=== PATIENT | female | born 1975 | race Caucasian/White ===

== ENCOUNTER 2023-10-26 03:41 | Inpatient (IN) | payer OTHER, SELFPAY ==
[2023-10-25 21:15] VITALS: BP 172/106
--- NOTE | 2023-10-25 23:47 | ED.GENMED ---
History of Present Illness
<Dorita Cheek MD, Resident - Last Filed: 10/26/23 00:21>
General
Chief Complaint: Abdominal Pain
Source: patient and family
Time Seen by Provider: 10/25/23 22:51
History of Present Illness
History of Present Illness:
47-year-old female, Ms. Alyssa Zuniga presented to the ER with abdominal pain, distended abdomen and bloating. Patient reports that she has been having the symptoms from the past 3 weeks and have worsened during the last week. Patient was seen at
[facility] 3 days ago, diagnosed with acute diverticulitis, CT evidence of abscesses, acute diverticulitis, colovesical fistula. Patient was told that she may need to be operated, but she declined. She consulted her colorectal surgeon,
Dr. Stephens who advised her to be seen at the [place] ER and get admitted for further management. Patient reports her abdominal pain at 9/10, diffuse all over the abdomen, nonradiating. Patient has a history of constipation, her last bowel
movement was yesterday, she is able to pass flatus. Patient is on Augmentin. No history of fever/chills, nausea/vomiting, no history of feculent/foul-smelling urine.
Past History
<Dorita Cheek MD, Resident - Last Filed: 10/26/23 00:21>
Past History
ED Past Medical History: HTN, Hypothyroidism, Psychiatric (Alcohol abuse, anxiety, depression) and Other (Bronchitis)
ED Past Surgical History:
Social History
Tobacco: Smoker
Alcohol: Former
Drug: None
Personal: Single
Living: with family
Employment: Employed
Family History
Family History: Other
Phy Exam
<Dorita Cheek MD, Resident - Last Filed: 10/26/23 00:21>
Physical Exam
Physical Exam:
GEN: In acute distress due to pain
Eyes: PERRLA, EOMs intact, no scleral icterus
HENT: NCAT, oral mucosa moist, no JVD, no cervical adenopathy.
Lungs: CTAB, no wheezes, rales, rhonchi, normal chest wall excursion
Cardiac: RRR, no M/R/G, no peripheral edema. Radial pulses 2+ bilat
Abdomen: Distended, diffuse tenderness to palpation, bowel sounds+
Neuro: AO x 3, no focal deficits to BUE/BLE, normal sensation throughout
Skin: No rashes, petechiae. Normal color, no pallor or jaundice.
Psych: Calm, cooperative, proper hygiene
Course
<Veneela Enrique Cheek MD, Resident - Last Filed: 10/26/23 00:21>
Orders/Labs/Results
Orders:
Orders
10/25/23 23:47
0.9% Sodium Chloride 500 ml [Nss] 500 ml IV BOLUS
HYDROmorphone [Dilaudid] 1 mg IV NOW STA
Ondansetron Injectable [Zofran] 4 mg IV NOW STA
Piperacillin/Tazo 3.375 Gram [Zosyn] 3.375 gram in 50 ml IV NOW
10/25/23 23:52
Complete Blood Count/With Diff Urgent
Comprehensive Metabolic Panel Urgent
10/26/23 00:14
CT Abd/pel W Iv And Oral Contr Urgent
Comment:
Reason For Exam: abdominal pain
Iohexol [Omnipaque] See Protocol PO NOW STA
10/26/23 00:27
HCG, Urine Qualitative Screen Urgent
Date Specimen was Collected: 10/26/23
Time Specimen was Collected: 00:25
Comment: ADD ON
Urinalysis Reflex To Culture Urgent
Date Specimen was Collected: 10/26/23
Time Specimen was Collected: 00:25
10/26/23 01:39
Add On- LAB Urgent
Tests Added?: urine hcg
10/26/23 02:22
Admit/Transfer Patient As Directed
Co-Sign Provider:
Level of Care: Inpatient admission
Assign to:: Telemetry
Physician / Group: Ed
Diagnosis: Diverticulitis
Reason for Telemetry: Arrhythmia
Date to Stop Telemetry: 10/29/23
Time to Stop Telemetry: 11:00
Reason for Hospitalization: Diverticulitis
Expected length of stay greater than two midnights?: Yes
ELOS- Estimated Length of Stay in days: 4
I certify the patient meets the requirements for IP care: Yes
PRN Pain Medication Management As Directed
May give lesser potent ordered pain med per pt: Yes
preference::
Protocol:: Medication orders for pain may be administered in a
manner that supports deferring to patient preference
when the pt is:
- Requesting an ordered lesser potent pain medication.
Least to most potent pain medications are defined
as: acetaminophen < NSAID < tramadol < opioids
(morphine, oxycodone, hydromorphone).
- Requesting a lesser dose of the same medication IF
ORDERED.
- Requesting a less intrusive route of administration
if both routes are prescribed by the provider (PO <
IV).
10/26/23 02:23
Code Status As Directed
Resuscitation Status: Full Code
10/26/23 02:26
Ipratropium/Albuterol Sulfate [Duoneb] 3 ml INH R NOW ONE
10/26/23 03:50
Acetaminophen [Tylenol] 650 mg PO Q4HPRN PRN
Alprazolam [Xanax] 0.5 mg PO TID PRN
HYDROmorphone [Dilaudid] 0.5 mg IV Q4HPRN PRN
Ipratropium/Albuterol Sulfate [Duoneb] 3 ml INH R Q4HPRN PRN
Ketorolac [Toradol] 10 mg IV Q6HPRN PRN
Ondansetron Injectable [Zofran] 4 mg IV Q6HPRN PRN
10/26/23 03:50
ColoRectal Surgery Consult Routine
Consulting Provider: Jayro Stephens
Was physician already notified: Yes
Reason for consult: Diverticulitis
TSH Reflex To Free T4 Routine
Activity As Directed
Activity Level: Ambulate
With Assistance
Bladder Scan As Directed
Follow Bladder Retention/Intermittent Cath Algorithm?: Yes
PRN if no void in __ hours: 6
Frequency: Per Retention Algorithm
If Bladder Scan Result >: 400
then:: Straight cath
EKG with chest pain [ECG as needed] As Directed
ECG as needed for:: Chest Pain
I/O [Intake/ Output] As Directed
Frequency: Per unit guidelines
Pneumatic Compression Sleeves As Directed
Type: Knee high
Straight Cath As Directed
Frequency: Per Retention Algorithm
Additional Instructions: straight cath as needed per acute urinary retention algorithm for 24 hrs
Additional Instructions: for bladder scan greater than 400 mL
Vital Signs As Directed
Frequency: Per unit guidelines
Oxygen Therapy [O2 Therapy] [RESP] Routine
Titrate/Wean O2 to maintain O2 sat greater than (%): 94
DX Deep Vein Thrombosis Video Routine
10/26/23 03:52
DC Protocol for Telemetry ONCE
10/26/23 04:00
Piperacillin/Tazo 3.375 Gram [Zosyn] 3.375 gram in 50 ml IV Q6H
10/26/23 Breakfast
NPO
Allow oral meds: Yes
Allow clear liquids: Sips of Clears
Basic Metabolic Panel IN AM
Complete Blood Count/No Diff IN AM
10/26/23 08:00
Levothyroxine [Synthroid] 175 mcg PO DAILY
Abnormal Lab Results
10/26/23 10/26/23
00:17 00:27
WBC 14.2 H 10^3/uL
(4.8-10.8)
RBC 3.72 L 10^6/uL
(4.20-5.40)
Hgb 11.2 L g/dL
(12.0-16.0)
Hct 33.3 L %
(37.0-47.0)
RDW 16.1 H %
(11.5-14.5)
Plt Count 474 H 10^3/uL
(130-400)
Abs Immat Gran (auto) 0.1 H 10^3/uL
(0-0.05)
Absolute Neuts (auto) 10.4 H 10^3/uL
(1.4-6.5)
Absolute Monos (auto) 0.8 H 10^3/uL
(0.1-0.6)
Immature Gran % 0.9 H %
(0-0.5)
Lymphocytes % 18.1 L %
(20.5-51.1)
Glucose 114 H mg/dl
(70-99)
AST 55 H U/L
(14-36)
ALT 67 H U/L
(0-35)
Alkaline Phosphatase 133 H U/L
(38-126)
Urine Bilirubin 1+ A
(Negative)
Urine Urobilinogen 2+ A
(Neg - 1+)
10/26/23 00:17
10/26/23 00:17
Vital Signs
Initial and Last Documented VS:
Initial Vital Signs
Temp Pulse Resp BP Pulse Ox
99.2 F 102 26 172/106 96
10/25/23 21:15 10/25/23 21:15 10/25/23 21:15 10/25/23 21:15 10/25/23 21:15
Last Documented Vital Signs
Temp Pulse Resp BP Pulse Ox
97.8 F 86 18 124/88 93
10/26/23 03:40 10/26/23 03:40 10/26/23 03:40 10/26/23 03:40 10/26/23 03:40
<Fawad Hoyt, DO - Last Filed: 10/26/23 00:17>
Orders/Labs/Results
Orders:
Orders
10/25/23 23:47
0.9% Sodium Chloride 500 ml [Nss] 500 ml IV BOLUS
HYDROmorphone [Dilaudid] 1 mg IV NOW STA
Ondansetron Injectable [Zofran] 4 mg IV NOW STA
Piperacillin/Tazo 3.375 Gram [Zosyn] 3.375 gram in 50 ml IV NOW
10/25/23 23:52
Complete Blood Count/With Diff Urgent
Comprehensive Metabolic Panel Urgent
10/26/23 00:14
CT Abd/pel W Iv And Oral Contr Urgent
Comment:
Reason For Exam: abdominal pain
Iohexol [Omnipaque] See Protocol PO NOW STA
10/26/23 00:27
HCG, Urine Qualitative Screen Urgent
Date Specimen was Collected: 10/26/23
Time Specimen was Collected: 00:25
Comment: ADD ON
Urinalysis Reflex To Culture Urgent
Date Specimen was Collected: 10/26/23
Time Specimen was Collected: 00:25
10/26/23 01:39
Add On- LAB Urgent
Tests Added?: urine hcg
10/26/23 02:22
Admit/Transfer Patient As Directed
Co-Sign Provider:
Level of Care: Inpatient admission
Assign to:: Telemetry
Physician / Group: Ed
Diagnosis: Diverticulitis
Reason for Telemetry: Arrhythmia
Date to Stop Telemetry: 10/29/23
Time to Stop Telemetry: 11:00
Reason for Hospitalization: Diverticulitis
Expected length of stay greater than two midnights?: Yes
ELOS- Estimated Length of Stay in days: 4
I certify the patient meets the requirements for IP care: Yes
PRN Pain Medication Management As Directed
May give lesser potent ordered pain med per pt: Yes
preference::
Protocol:: Medication orders for pain may be administered in a
manner that supports deferring to patient preference
when the pt is:
- Requesting an ordered lesser potent pain medication.
Least to most potent pain medications are defined
as: acetaminophen < NSAID < tramadol < opioids
(morphine, oxycodone, hydromorphone).
- Requesting a lesser dose of the same medication IF
ORDERED.
- Requesting a less intrusive route of administration
if both routes are prescribed by the provider (PO <
IV).
10/26/23 02:23
Code Status As Directed
Resuscitation Status: Full Code
10/26/23 02:26
Ipratropium/Albuterol Sulfate [Duoneb] 3 ml INH R NOW ONE
10/26/23 03:50
Acetaminophen [Tylenol] 650 mg PO Q4HPRN PRN
Alprazolam [Xanax] 0.5 mg PO TID PRN
HYDROmorphone [Dilaudid] 0.5 mg IV Q4HPRN PRN
Ipratropium/Albuterol Sulfate [Duoneb] 3 ml INH R Q4HPRN PRN
Ketorolac [Toradol] 10 mg IV Q6HPRN PRN
Ondansetron Injectable [Zofran] 4 mg IV Q6HPRN PRN
10/26/23 03:50
ColoRectal Surgery Consult Routine
Consulting Provider: Jayro Stephens
Was physician already notified: Yes
Reason for consult: Diverticulitis
TSH Reflex To Free T4 Routine
Activity As Directed
Activity Level: Ambulate
With Assistance
Bladder Scan As Directed
Follow Bladder Retention/Intermittent Cath Algorithm?: Yes
PRN if no void in __ hours: 6
Frequency: Per Retention Algorithm
If Bladder Scan Result >: 400
then:: Straight cath
EKG with chest pain [ECG as needed] As Directed
ECG as needed for:: Chest Pain
I/O [Intake/ Output] As Directed
Frequency: Per unit guidelines
Pneumatic Compression Sleeves As Directed
Type: Knee high
Straight Cath As Directed
Frequency: Per Retention Algorithm
Additional Instructions: straight cath as needed per acute urinary retention algorithm for 24 hrs
Additional Instructions: for bladder scan greater than 400 mL
Vital Signs As Directed
Frequency: Per unit guidelines
Oxygen Therapy [O2 Therapy] [RESP] Routine
Titrate/Wean O2 to maintain O2 sat greater than (%): 94
DX Deep Vein Thrombosis Video Routine
10/26/23 03:52
DC Protocol for Telemetry ONCE
10/26/23 04:00
Piperacillin/Tazo 3.375 Gram [Zosyn] 3.375 gram in 50 ml IV Q6H
10/26/23 Breakfast
NPO
Allow oral meds: Yes
Allow clear liquids: Sips of Clears
Basic Metabolic Panel IN AM
Complete Blood Count/No Diff IN AM
10/26/23 08:00
Levothyroxine [Synthroid] 175 mcg PO DAILY
Abnormal Lab Results
10/26/23 10/26/23
00:17 00:27
WBC 14.2 H 10^3/uL
(4.8-10.8)
RBC 3.72 L 10^6/uL
(4.20-5.40)
Hgb 11.2 L g/dL
(12.0-16.0)
Hct 33.3 L %
(37.0-47.0)
RDW 16.1 H %
(11.5-14.5)
Plt Count 474 H 10^3/uL
(130-400)
Abs Immat Gran (auto) 0.1 H 10^3/uL
(0-0.05)
Absolute Neuts (auto) 10.4 H 10^3/uL
(1.4-6.5)
Absolute Monos (auto) 0.8 H 10^3/uL
(0.1-0.6)
Immature Gran % 0.9 H %
(0-0.5)
Lymphocytes % 18.1 L %
(20.5-51.1)
Glucose 114 H mg/dl
(70-99)
AST 55 H U/L
(14-36)
ALT 67 H U/L
(0-35)
Alkaline Phosphatase 133 H U/L
(38-126)
Urine Bilirubin 1+ A
(Negative)
Urine Urobilinogen 2+ A
(Neg - 1+)
10/26/23 00:17
10/26/23 00:17
Vital Signs
Initial and Last Documented VS:
Initial Vital Signs
Temp Pulse Resp BP Pulse Ox
99.2 F 102 26 172/106 96
10/25/23 21:15 10/25/23 21:15 10/25/23 21:15 10/25/23 21:15 10/25/23 21:15
Last Documented Vital Signs
Temp Pulse Resp BP Pulse Ox
97.8 F 86 18 124/88 93
10/26/23 03:40 10/26/23 03:40 10/26/23 03:40 10/26/23 03:40 10/26/23 03:40
North[place];Remington Kim, DO - Last Filed: 10/26/23 04:02>
Orders/Labs/Results
Orders:
Orders
10/25/23 23:47
0.9% Sodium Chloride 500 ml [Nss] 500 ml IV BOLUS
HYDROmorphone [Dilaudid] 1 mg IV NOW STA
Ondansetron Injectable [Zofran] 4 mg IV NOW STA
Piperacillin/Tazo 3.375 Gram [Zosyn] 3.375 gram in 50 ml IV NOW
10/25/23 23:52
Complete Blood Count/With Diff Urgent
Comprehensive Metabolic Panel Urgent
10/26/23 00:14
CT Abd/pel W Iv And Oral Contr Urgent
Comment:
Reason For Exam: abdominal pain
Iohexol [Omnipaque] See Protocol PO NOW STA
10/26/23 00:27
HCG, Urine Qualitative Screen Urgent
Date Specimen was Collected: 10/26/23
Time Specimen was Collected: 00:25
Comment: ADD ON
Urinalysis Reflex To Culture Urgent
Date Specimen was Collected: 10/26/23
Time Specimen was Collected: 00:25
10/26/23 01:39
Add On- LAB Urgent
Tests Added?: urine hcg
10/26/23 02:22
Admit/Transfer Patient As Directed
Co-Sign Provider:
Level of Care: Inpatient admission
Assign to:: Telemetry
Physician / Group: Ed
Diagnosis: Diverticulitis
Reason for Telemetry: Arrhythmia
Date to Stop Telemetry: 10/29/23
Time to Stop Telemetry: 11:00
Reason for Hospitalization: Diverticulitis
Expected length of stay greater than two midnights?: Yes
ELOS- Estimated Length of Stay in days: 4
I certify the patient meets the requirements for IP care: Yes
PRN Pain Medication Management As Directed
May give lesser potent ordered pain med per pt: Yes
preference::
Protocol:: Medication orders for pain may be administered in a
manner that supports deferring to patient preference
when the pt is:
- Requesting an ordered lesser potent pain medication.
Least to most potent pain medications are defined
as: acetaminophen < NSAID < tramadol < opioids
(morphine, oxycodone, hydromorphone).
- Requesting a lesser dose of the same medication IF
ORDERED.
- Requesting a less intrusive route of administration
if both routes are prescribed by the provider (PO <
IV).
10/26/23 02:23
Code Status As Directed
Resuscitation Status: Full Code
10/26/23 02:26
Ipratropium/Albuterol Sulfate [Duoneb] 3 ml INH R NOW ONE
10/26/23 03:50
Acetaminophen [Tylenol] 650 mg PO Q4HPRN PRN
Alprazolam [Xanax] 0.5 mg PO TID PRN
HYDROmorphone [Dilaudid] 0.5 mg IV Q4HPRN PRN
Ipratropium/Albuterol Sulfate [Duoneb] 3 ml INH R Q4HPRN PRN
Ketorolac [Toradol] 10 mg IV Q6HPRN PRN
Ondansetron Injectable [Zofran] 4 mg IV Q6HPRN PRN
10/26/23 03:50
ColoRectal Surgery Consult Routine
Consulting Provider: Jayro Stephens
Was physician already notified: Yes
Reason for consult: Diverticulitis
TSH Reflex To Free T4 Routine
Activity As Directed
Activity Level: Ambulate
With Assistance
Bladder Scan As Directed
Follow Bladder Retention/Intermittent Cath Algorithm?: Yes
PRN if no void in __ hours: 6
Frequency: Per Retention Algorithm
If Bladder Scan Result >: 400
then:: Straight cath
EKG with chest pain [ECG as needed] As Directed
ECG as needed for:: Chest Pain
I/O [Intake/ Output] As Directed
Frequency: Per unit guidelines
Pneumatic Compression Sleeves As Directed
Type: Knee high
Straight Cath As Directed
Frequency: Per Retention Algorithm
Additional Instructions: straight cath as needed per acute urinary retention algorithm for 24 hrs
Additional Instructions: for bladder scan greater than 400 mL
Vital Signs As Directed
Frequency: Per unit guidelines
Oxygen Therapy [O2 Therapy] [RESP] Routine
Titrate/Wean O2 to maintain O2 sat greater than (%): 94
DX Deep Vein Thrombosis Video Routine
10/26/23 03:52
DC Protocol for Telemetry ONCE
10/26/23 04:00
Piperacillin/Tazo 3.375 Gram [Zosyn] 3.375 gram in 50 ml IV Q6H
10/26/23 Breakfast
NPO
Allow oral meds: Yes
Allow clear liquids: Sips of Clears
Basic Metabolic Panel IN AM
Complete Blood Count/No Diff IN AM
10/26/23 08:00
Levothyroxine [Synthroid] 175 mcg PO DAILY
Abnormal Lab Results
10/26/23 10/26/23
00:17 00:27
WBC 14.2 H 10^3/uL
(4.8-10.8)
RBC 3.72 L 10^6/uL
(4.20-5.40)
Hgb 11.2 L g/dL
(12.0-16.0)
Hct 33.3 L %
(37.0-47.0)
RDW 16.1 H %
(11.5-14.5)
Plt Count 474 H 10^3/uL
(130-400)
Abs Immat Gran (auto) 0.1 H 10^3/uL
(0-0.05)
Absolute Neuts (auto) 10.4 H 10^3/uL
(1.4-6.5)
Absolute Monos (auto) 0.8 H 10^3/uL
(0.1-0.6)
Immature Gran % 0.9 H %
(0-0.5)
Lymphocytes % 18.1 L %
(20.5-51.1)
Glucose 114 H mg/dl
(70-99)
AST 55 H U/L
(14-36)
ALT 67 H U/L
(0-35)
Alkaline Phosphatase 133 H U/L
(38-126)
Urine Bilirubin 1+ A
(Negative)
Urine Urobilinogen 2+ A
(Neg - 1+)
10/26/23 00:17
10/26/23 00:17
Vital Signs
Initial and Last Documented VS:
Initial Vital Signs
Temp Pulse Resp BP Pulse Ox
99.2 F 102 26 172/106 96
10/25/23 21:15 10/25/23 21:15 10/25/23 21:15 10/25/23 21:15 10/25/23 21:15
Last Documented Vital Signs
Temp Pulse Resp BP Pulse Ox
97.8 F 86 18 124/88 93
10/26/23 03:40 10/26/23 03:40 10/26/23 03:40 10/26/23 03:40 10/26/23 03:40
<Dorita Cheek MD, Resident - Last Filed: 10/26/23 00:21>
MDM/Problems Addressed
Differential Diagnosis Includes:
Acute diverticulitis versus colitis versus SBO versus gastroenteritis versus Crohn's/ulcerative colitis.
MDM/Problems Addressed:
Patient is hypertensive and tachycardic at presentation 172/106.
Patient is afebrile
N.p.o.
Started on IV fluids
CBC, CMP
Zosyn start
Pain control with Dilaudid.
Reached out to Dr. Stephens, he wants her to be admitted for further management.
<Dorita Cheek MD, Resident - Last Filed: 10/26/23 00:21>
*Critical Care Note
Total Time (30-74mins, 75-104mins- exclusive of procedures): Not Applicable
<Remington Kim DO - Last Filed: 10/26/23 04:02>
Update Note
Update Note:
10/26/2023 0356 AM: Preliminary Radiology Report
[facility], [facility] - Phone
[facility]
NAME: ALYSSA ZUNIGA
DATE OF EXAM: 10/26/2023
Patient No: [id number]
Physician: SUSANNE CHEEK^DORITA^ENRIQUE
Date of : 1975
Past Medical History (entered by Technologist):
Reason For Exam (entered by Technologist):
Other Notes (entered by Technologist): PT STATES SHE HAD BEEN DIAGNOSED WITH DIVERTICULITIS
Prior sent
Additional Information (per [facility]):
Comparison March 28, 2022
CT abdomen and pelvis with IV contrast
IMPRESSION:
Acute complicated diverticulitis with 2 adjacent peripherally enhancing abscesses, which abut the left adnexa, measuring 2.9 cm in the anterior mesentery and 3 cm along the oblique muscles and anterior mesentery. In addition, there is moderate wall
thickening of the bladder underneath the left adnexa with a 3 cm peripherally enhancing abscess along the superior surface. Cannot exclude a fistula between the sigmoid and left adnexa as well as between the left adnexa and bladder.
No free air. Trace free fluid. Moderate hepatic steatosis.
Moderate pericardial effusion, measuring up to 1.1 cm in thickness.
Case discussed with Dr. Kim at 0344
Dr. Ward, Dr. Stephens aware via [place] text
ED Attending Note
<Dorita Cheek MD, Resident - Last Filed: 10/26/23 00:21>
-
Portions of this chart may have been created with voice recognition software.� Occasional wrong word or��sound alike� substitutions may have occurred due to the inherent limitations of voice recognition software.
<Fawad Hoyt DO - Last Filed: 10/26/23 00:17>
ED Attending Note
Patient seen and examined by attending physician: Yes
I performed a history and physical exam of patient and discussed management with resident, I reviewed resident's note and agree with documented findings and plan of care.: Yes
ED Attending Note:
I have reviewed and agree with history and treatment plan by Dr. Dorita Cheek. My exam revealed
Physical Exam
General: Afebrile, smells of cigarette smoke
Neck: supple. no meningeal signs. normal posterior pharynx
Heart: s1/s2 regular rate and rhythm, no murmur. equal radial
pulses.
HEENT: Pupils equal round reactive to light, EOMI
Lungs: no acute respiratory distress. clear bilaterally
Abdomen: normal bowel sounds. Abdomen mildly distended, no rebound or guarding. No CVAT
Neuro: alert and oriented. no focal neurological deficits cranial nerves II through XII intact
Skin: no rash
Psychiatric: well kept. interactive and cooperative
Extremities: no edema. no calf tenderness. negative homans. good distal pulses
47-year-old female with diverticulitis, abscesses per patient history. Admit to hospitalist, Dr. Stephens to see on consult.
Discharge Plan
Departure
Patient Disposition: Admit
Date of Disposition: 10/26/23
Time of Disposition: 00:15
Presentation/result/management discussed w/ accepting MD/DO: Hospitalist
Patient with high blood pressure during this ER visit?: Yes
Condition: Fair
Discharge Problem:
Abdominal pain
Interventions
Interventions:
*Risk Screen - Suicide Last Done: 10/25/23 21:15
*General Assessment Last Done: 10/25/23 23:56
*Neglect/Abuse Screening Last Done: 10/25/23 21:15
ED- Fall Risk Assessment Last Done: 10/26/23 00:40
*ED COVID-19 Vaccine History Last Done: 10/25/23 23:56
*Nursing Disposition Last Done: 10/26/23 03:33
FU-Izfdhy-Hcvitkgkou Assessment Last Done: 10/25/23 23:56
Discharge Date and Time
Discharge Date/Time: 10/26/23 03:33
[2023-10-25 23:56] VITALS: BP 116/82; BMI 36.9
[2023-10-26] VITALS (11 sets, daily range): BP systolic 83–124; BP diastolic 46–88; BMI 37.6
--- NOTE | 2023-10-26 00:03 | EDRN ---
Pt has had 3 weeks of diffuse abdominal pain that has been getting worse. Pt says she has been very careful with what she eats. Pt went to [facility] to get antibiotics and was advised to have imagining done. Pt went to [facility]
and says they wanted to keep her and do surgery but she declined and told them she wanted to have surgery done by her surgeon if needed. There was talk about a transfer however pt was kept overnight for two nights and discharged on Friday morning.
Pt called Dr Stephens and was advised to come to ED for admission if tylenol was not helping her pain at home. Pt started augmentin BID on Friday. No fever/cough, cp, sob, urinary symptoms, n/v/d/constipation. Pt had small BM yesterday.
[2023-10-26] MEDS: NSS 500 IV ×3 (00:18→20:48)
[2023-10-26] MEDS: ZOFRAN 4 MG IV ×2 (00:19→20:48)
[2023-10-26] MEDS: DILAUDID 1 MG IV (00:22)
[2023-10-26 00:32] LABS: Urine Albumin Trace (Neg - Trace); Urine Bilirubin 1+ (Negative); Urine Character Clear (Clear); Urine Color Yellow; Urine Glucose Negative (Negative); Urine Ketone Negative (Negative); Urine Leukocyte Negative (Negative); Urine Nitrite Negative (Negative); Urine Occult Blood Negative (Negative); Urine Urobilinogen 2+ (Neg - 1+)
[2023-10-26] MEDS: ZOSYN 50 IV ×5 (00:33→23:11)
[2023-10-26] MEDS: OMNIPAQUE 50 ML PO (00:35)
[2023-10-26 00:42] LABS: % Basophils 0.5 % (0-2); % Immature Granulocytes 0.9 % (0-0.5); % Lymphocytes 18.1 % (20.5-51.1); % Monocytes 5.4 % (1.7-9.3); % Neutrophils 73.1 % (42.2-75.2); Absolute Basophils 0.1 10^3/uL (0-0.2); Absolute Eosinophils 0.3 10^3/uL (0-0.7); Absolute Immature Granulocytes 0.1 10^3/uL (0-0.05); Absolute Lymphocytes 2.6 10^3/uL (1.2-3.4); Absolute Monocytes 0.8 10^3/uL (0.1-0.6); Absolute Neutrophils 10.4 10^3/uL (1.4-6.5); Hematocrit 33.3 % (37.0-47.0); Hemoglobin 11.2 g/dL (12.0-16.0); Mean Corp Hgb Conc. 33.6 g/dL (33.0-37.0); Mean Corpuscular Hgb 30.1 pg (27.0-31.0); Mean Corpuscular Volume 89.5 fL (81.0-99.0); Nucleated Red Blood Cells % 0 %; Platelet Count 474 10^3/uL (130-400); Red Blood Cell Count 3.72 10^6/uL (4.20-5.40); Red Cell Dist. Width 16.1 % (11.5-14.5); White Blood Cell Count 14.2 10^3/uL (4.8-10.8)
[2023-10-26 00:45] LABS: ALT (SGPT) 67 U/L (0-35); AST (SGOT) 55 U/L (14-36); Albumin 4.4 g/dl (3.5-5.0); Alkaline Phosphatase 133 U/L (38-126); Blood Urea Nitrogen 12 mg/dl (7-17); Calcium 9.3 mg/dl (8.4-10.2); Carbon Dioxide 25 mmol/L (22-30); Chloride 103 mmol/L (98-107); Estimated Creatinine Clearance 92 ml/min; Glucose 114 mg/dl (70-99); Potassium 4.2 mmol/L (3.5-5.1); Sodium 137 mmol/L (135-145); Total Bilirubin 0.7 mg/dl (0.2-1.3); Total Protein 7.5 g/dl (6.3-8.2); eGFR > 60.00
[2023-10-26 02:01] LABS: HCG, Urine Qualitative Screen Negative
--- NOTE | 2023-10-26 02:26 | HPS.HSE ---
Family Physician
-
Family Physician: NOT KNOW UNKNOWN - PT DOES
Chief Complaint
-
Abd Pain
History of Present Illness
Patient is a 47y F with PMH significant for diverticular disease, anxiety and hypothyroidism who presents to ED complaining of abdominal pain. Patient states that she has a long history of diverticular disease and has been followed by
[facility]. She was last hospitalized here for diverticulitis in March 2022. Patient states that she began to experience LLQ about 3-4 weeks ago. She initially tried her usual management method of clear liquid diet x several days followed by
low-fiber diet x several days. Unfortunately, her symptoms did not fully resolve.
On 10/22 she presented to Urgent Care and then to [facility] ED for further evaluation. Patient was admitted for 2 days and treated with IV abx. Surgical intervention was discussed.
Patient states that imaging at that facility showed abscesses and a colovesicular fistula. She does not have CD images or a formal report.
Patient elected to leave [facility] and follow-up with Dr. Stephens, She was discharged home on PO Augmentin and had follow-up scheduled with Dr. Stephens next week.
Unfortunately, her pain continued to increase and patient presented to the ED this evening for further evaluation.
Medical History
Past Medical History
Past Medical History: Reports Other
Additional Past Medical History:
Diverticular Disease
Hypothyroidism
Obesity
Anxiety / Depression
Past Surgical History: Reports Other
Additional Past Surgical History:
Social History
Tobacco: Smoker (Current every day smoker. 'Too much'.)
Alcohol: None
Drug: None
Family History
Family History: Not pertinent
Allergies / Home Medications
Allergies reflects when Allergies were last updated in [facility].
Home Medications with original date entered in [facility]
Allergy/Medication List:
Allergies
Allergy/AdvReac Type Severity Reaction Status Date / Time
No Known Allergies Allergy Verified 10/25/23 21:20
Home Medications
levothyroxine 175 mcg tablet 175 mcg PO DAILY Thyroid 12/15/21
alprazolam 1 mg tablet (Xanax) 1 mg PO TID PRN anxiety #60 tabs 12/24/21
docusate sodium 100 mg capsule (Colace) 200 mg PO BID 10/25/23
polyethylene glycol 3350 17 gram/dose oral powder (Miralax) 4 g PO DAILYPRN PRN constipation 10/25/23
simethicone 80 mg chewable tablet 160 mg PO BID 10/25/23
amoxicillin 875 mg-potassium clavulanate 125 mg tablet 1 tab PO BID 10/26/23
Review of Systems
-
History Source: Patient
A 12 point ROS was completed and negative except as noted: Yes
Constitutional: Reports Fatigue; Denies Fever or Chills
EENT: Denies Sore Throat
Respiratory: Reports Trouble Breathing; Denies Cough
Cardiac: Denies Chest Pain or Palpitations
Abdomen/GI: Reports Abdominal Pain; Denies Nausea, Vomiting, Diarrhea, Constipated, Bloody Stools or Black Stools
: Reports Other (Difficulty urinating.); Denies Dysuria, Frequency or Bleeding
Neurological: Denies Dizzy or Headache
Psych: Denies Depression or Anxiety
Physical Exam
Vital Signs
Vital Signs
Temp Pulse Resp BP Pulse Ox
99.2 F 90 15 114/81 91
10/25/23 21:15 10/26/23 02:00 10/26/23 02:00 10/26/23 02:00 10/26/23 02:00
Physical Exam
General: Other (47y F in mild distress due to pain and dyspnea.)
HEENT: Moist mucous membranes and Other (Edentulous.)
Respiratory: Other (Decreased BS bilaterally.)
Cardiac: S1/S2 and Regular Rhythm; No Murmur
GI: Other (Obese, pos BS. Pos tenderness in LLQ without rebound.)
Musculoskeletal: No Clubbing, No Cyanosis and No Edema
Neuro: AO x 3
Laboratory Results
-
10/26/23 00:17
10/26/23 00:17
Laboratory Results
Total Bilirubin 0.7 mg/dl (0.2-1.3) 10/26/23 00:17
AST 55 U/L (14-36) H 10/26/23 00:17
ALT 67 U/L (0-35) H 10/26/23 00:17
Alkaline Phosphatase 133 U/L (38-126) H 10/26/23 00:17
Impression/Plan
-
A/P: Patient is a 47y F with PMH significant for diverticular disease who presents to ED complaining of LLQ pain.
Complicated Diverticulitis
- Admit for further evaluation and treatment.
- Try to obtain records from recent stay at [facility].
- Repeat CT A/P ordered in the ED this evening but has yet to be completed.
- Colorectal Surgery evaluation.
- IV Zosyn for now.
- NPO, IVFs, supportive care / pain control.
- May require surgical intervention depending on results of imaging.
Hypothyroidism
- Patient states that she is not very compliant with her T4 supplementation.
- She mentions that her TFTs were abnormal during recent hospital stay.
- Check TSH / T4.
- Continue / resume current dose for now.
- Adjust as needed - though any dose adjustment will be difficult if true culprit here is non-compliance and not incorrect dosing.
Tobacco Use Disorder
Suspected COPD
- Patient complains of SOB in the ED.
- Decreased BS throughout but no significant wheezing.
- Nebs PRN.
- Encourage smoking cessation efforts.
- Follow for new / worsening symptoms.
Generalized Anxiety
- Stable. Continue PRN alprazolam at decreased dose.
Obesity due to excess calories
- Affects all aspects of care.
- Encourage healthy diet and increased exercise with goal of weight loss.
DVT Prophylaxis: SCDs
Code Status: Full
[2023-10-26] MEDS: DUONEB 3 ML INH (03:00)
[2023-10-26] MEDS: SYNTHROID 175 MCG PO (05:07)
--- NOTE | 2023-10-26 05:56 | PTCARENOTE ---
Addendum entered by Jovanny Dee RN 10/27/23 03:24:
Pt also states that she smokes 1 and 1/2 pack of cigarettes/day. Offer nicotine patch. Pt refuses.
Original Note:
Receive the pt from ER. Pt alert oriented X3, appears in no distress. Pt assisted to her bed steady on her feet. Pt oriented to the room,call valera within reach. Pt on NSR on telemonitor. VSS (T=97.8, HR=86, RR=18, NO=736/88, SpO2=93% on RA). Pt
became angry when she was in the bathroom and was checked on by the PCT. Pt states that she has to sit on the toilet for a long time and she needs 'a quiet environment'. Explain to the pt that the goal of checking is to make sure the pt is safe. Pt
initially want to be D/C, but after explaining the purpose of checking by the staff and also the purpose of her admission, pt is agreeable to stay. Pt was able to provide health HX. Pt states that her pain in 10/24, but she wants to take Dilaudid and
zofran at the same time. Offered Toradol or Tylenol as Zofran is not due yet, pt refused and wants to wait until he can get both zofran and Dilaudid. Suggest to the pt that she can use the bathroom or BSC. Pt refuses. Pt refused her IVFs, states
that she will have to go to the bathroom often, which will exacerbate her urinary sx. Pt agrees to take IV Abx (Zosyn). Offered to come back with zofran and Dilaudid when it's appropriate, pt now refuses and states that she 'can't eat, didn't have
bowel movement for many days, and has a full bladder'. Suggest to scan the pt's bladder and straight cath if necessary. Pt refused and wants to go to sleep. Pt took off her telemonitor, refuses SCDs. Advise the pt to call whenever she wants pain
medication, or wants help with anything.
[2023-10-26 06:52] LABS: Hematocrit 33.4 % (37.0-47.0); Hemoglobin 10.8 g/dL (12.0-16.0); Mean Corp Hgb Conc. 32.3 g/dL (33.0-37.0); Mean Corpuscular Hgb 30.1 pg (27.0-31.0); Mean Platelet Volume 10.1 fL (7.4-10.4); Platelet Count 470 10^3/uL (130-400); Red Blood Cell Count 3.59 10^6/uL (4.20-5.40); Red Cell Dist. Width 16.1 % (11.5-14.5); White Blood Cell Count 13.9 10^3/uL (4.8-10.8)
[2023-10-26 07:08] LABS: Blood Urea Nitrogen 12 mg/dl (7-17); Calcium 9.1 mg/dl (8.4-10.2); Carbon Dioxide 27 mmol/L (22-30); Chloride 99 mmol/L (98-107); Estimated Creatinine Clearance 81 ml/min; Glucose 125 mg/dl (70-99); Potassium 4.4 mmol/L (3.5-5.1); Sodium 137 mmol/L (135-145); eGFR > 60.00
[2023-10-26 08:09] LABS: Free T4 0.52 ng/dl (0.78-2.19)
--- NOTE | 2023-10-26 10:37 | CON.CRS ---
Consultation
-
Date/Time Consultation Requested: 10/26/23 0350
Requesting Provider: Ed
Reason for Consultation: diverticulitis
Medical History
-
Chief Complaint: abdominal pain
History of Present Illness:
47 yo female with a history of hypothyroid, diverticulitis and heavy tobacco use who presents with LLQ pain. She lives in [place] but has been following as an outpatient with Dr. Stephens for diverticulitis. She has yet to schedule a colonoscopy.
She was admitted in December of 2021 and March of 2022 for diverticulitis attacks and improved with medical management both of thoses times. She was recently seen as an outpatient in August after another attack was treated at an urgent care. She has
intermittently had pain since that time and has been on and off several courses of antibiotics. She has also been trying to manage with dietary changes as well. She presented to a facility in [place] and was admitted on 10/23/23 and ?discharged
yesterday on Augmentin. She presented to our ER as pain continued to have pain. She notes she has been NPO with some clears for the past 3 days. She is tender to the LLQ on exam. She notes it feels 'weird' when she voids but denies pain, burning or
pneumaturia. She has had intermittent constipation but is able to pass her stools with OTC bowel regimen. She has been afebrile with low normal BP.
Past Medical History
Past Medical History: Diverticulitis, Hypothyroidism, Psychiatric (anxiety/depression) and Other (obesity)
Past Surgical History:
Social History
Tobacco: Smoker (heavy)
Alcohol: None
Family History
Family History: Reviewed & Not Pertinent
Allergies / Home Medications
Allergy/AdvReac Type Severity Reaction Status Date / Time
No Known Allergies Allergy Verified 10/25/23 21:20
�Medication �Instructions �Recorded �Confirmed �Type
levothyroxine 175 mcg tablet 175 mcg PO DAILY Thyroid 12/15/21 10/26/23 History
alprazolam 1 mg tablet (Xanax) 1 mg PO TID PRN anxiety #60 tabs 12/24/21 10/26/23 Rx
docusate sodium 100 mg capsule 200 mg PO BID 10/25/23 10/26/23 History
(Colace)
polyethylene glycol 3350 17 4 g PO DAILYPRN PRN constipation 10/25/23 10/26/23 History
gram/dose oral powder (Miralax)
simethicone 80 mg chewable tablet 160 mg PO BID 10/25/23 10/26/23 History
amoxicillin 875 mg-potassium 1 tab PO BID 10/26/23 10/26/23 History
clavulanate 125 mg tablet
Review of Systems
-
History Source: Patient
All other systems: Negative unless noted
A 10 point review of systems was completed, and was negative except as per HPI.
Physical Exam
Vital Signs
Temp 98 F 10/26/23 07:10
Pulse 76 10/26/23 07:10
Resp Rate 16 10/26/23 07:10
Blood pressure 89/63 10/26/23 07:10
SaO2 91 10/26/23 07:10
10/25/23 10/26/23 10/27/23
06:59 06:59 06:59
Actual Weight 93.1 kg
Body Mass Index (BMI) 37.6
Lab Results / Allergies
10/26/23 05:57
10/26/23 05:57
WBC 13.9 10^3/uL (4.8-10.8) H 10/26/23 05:57
Hgb 10.8 g/dL (12.0-16.0) L 10/26/23 05:57
Hct 33.4 % (37.0-47.0) L 10/26/23 05:57
Plt Count 470 10^3/uL (130-400) H 10/26/23 05:57
Abs Immat Gran (auto) 0.1 10^3/uL (0-0.05) H 10/26/23 00:17
Neutrophils % 73.1 % (42.2-75.2) 10/26/23 00:17
Allergy/AdvReac Type Severity Reaction Status Date / Time
No Known Allergies Allergy Verified 10/25/23 21:20
Physical Exam
General: Well Developed and Well Nourished
HEENT: Moist Mucous Membranes
Respiratory: Non Labored Respirations
GI: Soft and Tender (LLQ)
Skin: Warm and Dry
Neuro: Awake, Alert and AO x 3
Psych: Calm
Data Reviewed
-
CT Scan: Image Personally Visualized and interpreted, Report Reviewed by me, Discussed with Physician, Discussed with Nurse and Discussed with Patient
Labs: Labs Reviewed by me, Discussed with Physician, Discussed with Nurse and Discussed with Patient
Old Records: Requested
Assessment / Plan
-
47 yo female with h/o recurrent diverticulitis with recurrent episodes this summer since early August who recently was admitted as an inpatient [place] now presenting here for evaluation of complicated diverticulitis as she is known to
[facility]. She has LLQ pain/tenderness. CT imaging with diverticulitis with several abscesses in the left pelvis near the left adnexa and against the bladder. There is no air in the bladder lumen itself. She is afebrile with low normal blood pressure.
Noted leukocytosis.
--Discussed with Dr. Brooks in IR, will plan aspiration/drainage of abscess in IR; likely tomorrow
--Continue IV abx
--Continue NPO at this time
--Trend labs/exams
Will follow closely with medical management at this time. No plans for emergent surgery today, will follow closely as she may require surgery on urgent basis if not improving
--- NOTE | 2023-10-26 11:38 | PTCARENOTE ---
Called once to give report to Alma Delia Deshpande with no answer.
--- NOTE | 2023-10-26 12:26 | W.PN.HOSP.TC ---
Today's Communication/Plan
-
IV antibiotics
IV fluids as above
Restart Synthroid
Follow labs
Assessment / Plan
Assessment / Plan
47-year-old female was recently seen hospital in [place] and was told that she has diverticulitis. Patient came to [facility] for further treatment. Stated that she was there overnight. It is unclear if she left on her own.
Per nursing patient has been refusing to get IV fluids or keep telemetry on. She has been walking around on the floor and has been instructed not to go off of the floor.
On examination in the room sitting dressed
Cardiovascular system S1 is appreciated
Chest clear to auscultation
Abdomen mild left lower quadrant tenderness
No pedal edema
# Acute diverticulitis with abscess
Get records from [facility]
CT abdomen pelvis-noted rim-enhancing abscesses and concern for developing fistulous. Sigmoid colon and left adnexa/urinary bladder
Continue Zosyn
Colorectal surgery evaluation appreciated
Also get infectious disease consultation
May need IR directed drain placed-patient aware
She is refusing IV fluids as she does not want to go to the bathroom all the time
I have changed her to 500 mL every 6 hours instead
She may need surgery at some point hopefully not during the hospitalization if this can be managed conservatively
Needs colonoscopy to be done as outpatient-after 8 weeks
# Anemia-check iron studies
# Mild thrombocytosis-follow
# Hypothyroidism
Not compliant with medicines
Elevated TSH noted
Resume previous dose as she was not compliant with medicines
# Elevated [id number] secondary to infection. No right upper quadrant tenderness
Hepatic steatosis noted on CAT scan otherwise unremarkable
# Tobacco use disorder
Smoking cessation counseling
# Anxiety-continue as needed Xanax
# Obesity per BMI criteria
# DVT prophylaxis-Lovenox
# Full code
Discussed with nursing at bedside
Discontinue telemetry as patient is refusing
Reviewed with the patient regarding the need for IV fluids her blood pressure was low however she is not symptomatic. Patient still refusing therefore I changed to every 6 hours-500 mL bag
Also discussed with the patient regarding the importance to stay on the floor even though she wants to walk downstairs
time spent 36 min
Anticipated Discharge: > 48 hours
Subjective/Interval History
-
Date of Service: October 26, 2023
Objective Data
-
Labs:
Laboratory Results
10/26/23 10/26/23
00:17 05:57
WBC 14.2 H 13.9 H
Hgb 11.2 L 10.8 L
Hct 33.3 L 33.4 L
Plt Count 474 H 470 H
Sodium 137 137
Potassium 4.2 4.4
Chloride 103 99
Carbon Dioxide 25 27
BUN 12 12
Creatinine 0.8 0.9
Glucose 114 H 125 H
Calcium 9.3 9.1
Total Bilirubin 0.7
AST 55 H
ALT 67 H
Alkaline Phosphatase 133 H
Vital Signs:
Vital Signs
Temp Pulse Resp BP Pulse Ox
97.7 F 73 16 91/66 90
10/26/23 11:05 10/26/23 11:05 10/26/23 11:05 10/26/23 11:05 10/26/23 11:05
--- NOTE | 2023-10-26 12:30 | CON.ID ---
Consultation
-
Date/Time Consultation Requested: October 26, 2023 0753
Date/Time Consultation Performed: October 26, 2023 1230
Requesting Provider: Dr. Miik Livingston
Performing Provider: Dr. Dee Dinh
Reason for Consultation: Diverticular abscess
Chief Complaint / Past History
Chief Complaint
abdominal pain
History of Present Illness
47-year-old female with history of recurrent diverticulitis who came to the hospital October 24 due to left lower quadrant abdominal pain. She has been having abdominal pain for about 4 weeks which she tried to control with low residual diet. She
did not improve. She went to urgent care who prescribed an antibiotic but she did not fill the prescription. On October 22 she was admitted to [facility] for 2 days. She was told CAT scan of the abdomen and pelvis showed abscess and
enterovesical fistula. Surgery was recommended. However patient wanted to be discharged so that she can follow-up with her colorectal surgeon Dr. Stephens. She was discharged on Augmentin. She had worsening abdominal pain and therefore came to
[facility] ER. White count 14.2. No fevers or chills. No diarrhea. CAT scan shows severe diverticulitis of distal descending colon with pericolonic abscess tracking towards the left superior urinary bladder wall concern for developing
fistula between the sigmoid and left adnexa/urinary bladder. She is currently on Zosyn. Today, abdominal pain better. No urinary sxs. No air in urine. No feculent material in urine.
Past History
Additional Past Medical History:
Hypothyroidism
Diverticulitis
Anxiety
BMI 37.5
Tobacco use disorder
C- section
Allergy History:
No Known Allergies Allergy (Verified 10/25/23 21:20)
Medications Reviewed: Yes
Current Antibiotics:
Zosyn
Social History
Tobacco: Smoker
Alcohol: None
Drug: None
Personal:
Family History
Family History: Not Pertinent
Review of Systems
Review of Systems
General: Change in Appetite; Negative Fever or Chills
HEENT: Negative Sinus Problems or Headache
Cardiovascular: Negative Chest Pain or Dyspnea
Respiratory: Negative Dyspnea or Cough
Gasteroenterology: Negative Nausea or Vomiting
Genital / Urological: Negative Dysuria or Flank Pain
Skin / Hair / Nails: Negative Rash
Neurological: Negative Headache or Dizziness
All systems: All other systems were reviewed and were negative
Vital Signs
Temp Pulse Resp BP Pulse Ox
97.7 F 73 16 91/66 90
10/26/23 11:05 10/26/23 11:05 10/26/23 11:05 10/26/23 11:05 10/26/23 11:05
Physical Exam
Physical Exam
Constitutional: No Acute Distress
Eyes: No Conjunctival Hemorrhage and Sclera Anicteric
Cardiovascular: Regular Rate
Pulmonary: Clear
Gastrointestinal: Soft and Tender (mid-left lower abdomen)
Extremities: Negative Edema
Neurological: AO x 3
Lab / Diagnostic Study Results
10/26/23 05:57
10/26/23 05:57
Abs Immat Gran (auto) 0.1 10^3/uL (0-0.05) H 10/26/23 00:17
Absolute Neuts (auto) 10.4 10^3/uL (1.4-6.5) H 10/26/23 00:17
Absolute Lymphs (auto) 2.6 10^3/uL (1.2-3.4) 10/26/23 00:17
Absolute Monos (auto) 0.8 10^3/uL (0.1-0.6) H 10/26/23 00:17
Absolute Basos (auto) 0.1 10^3/uL (0-0.2) 10/26/23 00:17
Immature Gran % 0.9 % (0-0.5) H 10/26/23 00:17
Neutrophils % 73.1 % (42.2-75.2) 10/26/23 00:17
Lymphocytes % 18.1 % (20.5-51.1) L 10/26/23 00:17
Monocytes % 5.4 % (1.7-9.3) 10/26/23 00:17
Eosinophils % 2.0 % (0-6) 10/26/23 00:17
Basophils % 0.5 % (0-2) 10/26/23 00:17
Microbiology Results
10/26/23 CT a/p: Severe acute colitis versus diverticulitis of the distal descending colon and proximal sigmoid colon. Rim-enhancing pericolonic abscesses in the left lower quadrant. Concern for developing fistulas between the sigmoid colon and the
left adnexa and urinary bladder.
Assessment / Plan
# Recurrent diverticulitis - severe
# Diverticular abscesses
# Leukocytosis
- For IR abscess drainage. Send aerobic and anaerobic culture.
- Continue Zosyn d2
- Trend wbc
Care Review
Plan reviewed with: Physician (Dr. Livingston)
--- NOTE | 2023-10-26 12:53 | PTCARENOTE ---
Pt refused IVF's, Pt refused Telemetry monitoring. Pt asked for a walker to walk the padron. I gave her one to fit her build and explained her pressure was low and I needed her to stay on the EAST side of the floor and she did not kevin happy about
that. I explained it was for her safety and for me to be able to keep an eye on her for safety.
--- NOTE | 2023-10-26 13:57 | PTCARENOTE ---
Found pt coming off the elevator on the ground level with a gentleman pushing her in a WC. I was with the charge nurse coming back up to the floor from lunch. I explained to the pt that she was not allowed to be off the floor per hospital policy.
The pt had an IV in her arm. The pt kept stating ' my doctor said I could walk all over the hospital' Prior to this event the pt attempted to walk on the 4th floor with a walker that I adjusted for her. The pt stated ' walking on this floor is not a
walk to me, I wanna walk around the hospital' I contacted the MD to verify what the pt stated and she confirmed that she did not say she could walk around the hospital. I contacted the nursing spinning and winding supervisor to speak with the pt.
--- NOTE | 2023-10-26 14:56 | PTCARENOTE ---
After a phone conversation with Dr Stephens in regards to 'walking around the hospital' per the pt's words. He confirmed that he encouraged her to walk the floor only. This is something I encouraged as well but the pt has yet to perform. The pt stated
'She was gonna do what she was gonna do regardless' Pt said she was gonna leave AMA, form filled out and the family talked to the pt and she is agreeing to stay for a possible surgery 10/27/23.
[2023-10-26] MEDS: NSS 250 IV (15:16)
[2023-10-26] MEDS: NSS IV (19:45)
[2023-10-26] MEDS: DILAUDID 0.5 MG IV (21:38)
--- NOTE | 2023-10-26 22:00 | PTCARENOTE ---
Pt stating pain 8/10 lower ABD pain, BP 115/76 and 123/74. HR 60-70s. House TURRET LATHE TENDER aware states OK to give IV dilaudid. Pt agreeable to X1 bag 500 mls NSS at 250/hr while receiving IV dilaudid. Pt premedicated with IV zofran per request. Pt
continues to refuse field specialist. House TURRET LATHE TENDER aware.
[2023-10-27] VITALS (12 sets, daily range): BP systolic 76–151; BP diastolic 69–109
[2023-10-27] MEDS: NSS IV ×2 (03:39→11:03)
[2023-10-27] MEDS: DILAUDID 0.5 MG IV (03:55)
[2023-10-27] MEDS: ZOFRAN 4 MG IV (04:08)
[2023-10-27] MEDS: SYNTHROID 175 MCG PO (04:15)
[2023-10-27] MEDS: TYLENOL 650 MG PO (05:11)
[2023-10-27] MEDS: ZOSYN 50 IV ×4 (05:16→23:17)
[2023-10-27 06:58] LABS: Hematocrit 31.2 % (37.0-47.0); Hemoglobin 9.9 g/dL (12.0-16.0); Mean Corp Hgb Conc. 31.7 g/dL (33.0-37.0); Mean Corpuscular Hgb 29.6 pg (27.0-31.0); Mean Corpuscular Volume 93.4 fL (81.0-99.0); Red Blood Cell Count 3.34 10^6/uL (4.20-5.40); Red Cell Dist. Width 16.2 % (11.5-14.5); White Blood Cell Count 11.7 10^3/uL (4.8-10.8)
[2023-10-27 07:08] LABS: ALT (SGPT) 69 U/L (0-35); AST (SGOT) 54 U/L (14-36); Albumin 4.2 g/dl (3.5-5.0); Alkaline Phosphatase 116 U/L (38-126); Blood Urea Nitrogen 12 mg/dl (7-17); Calcium 8.9 mg/dl (8.4-10.2); Carbon Dioxide 29 mmol/L (22-30); Chloride 103 mmol/L (98-107); Estimated Creatinine Clearance 81 ml/min; Glucose 93 mg/dl (70-99); Iron 46 ug/dl (37-170); Potassium 4.7 mmol/L (3.5-5.1); Sodium 139 mmol/L (135-145); Total Bilirubin 0.4 mg/dl (0.2-1.3); Total Protein 6.8 g/dl (6.3-8.2); eGFR > 60.00
[2023-10-27 07:17] LABS: Percent Saturation 18 % (20-50); Total Iron Binding Capacity 253 ug/dl (265-497)
[2023-10-27 08:12] LABS: % Basophils 0.4 % (0-2); % Eosinophils 2.6 % (0-6); % Immature Granulocytes 0.9 % (0-0.5); % Lymphocytes 14.9 % (20.5-51.1); % Monocytes 5.6 % (1.7-9.3); % Neutrophils 75.6 % (42.2-75.2); Absolute Basophils 0.1 10^3/uL (0-0.2); Absolute Eosinophils 0.3 10^3/uL (0-0.7); Absolute Immature Granulocytes 0.1 10^3/uL (0-0.05); Absolute Lymphocytes 1.7 10^3/uL (1.2-3.4); Absolute Monocytes 0.7 10^3/uL (0.1-0.6); Absolute Neutrophils 8.9 10^3/uL (1.4-6.5); Nucleated Red Blood Cells % 0 %; Platelet Count 426 10^3/uL (130-400)
--- NOTE | 2023-10-27 08:29 | W.PN.HOSP.TC ---
Today's Communication/Plan
-
For drain placement today
Appreciate ID and colorectal surgery
Assessment / Plan
Assessment / Plan
47-year-old female was recently seen hospital in [place] and was told that she has diverticulitis. Patient came to [facility] for further treatment. Stated that she was there overnight. It is unclear if she left on her own. Per
nursing patient has been refusing to get IV fluids or keep telemetry on. She has been walking around on the floor and has been instructed not to go off of the floor.
Physical Exam
General: Not in acute distress
Cardiovascular system S1 is appreciated
Pulmonary: Clear to auscultation bilaterally
Abdomen: mild left lower quadrant tenderness. Positive bowel sounds.
Extremities: No cyanosis or edema.
# Acute diverticulitis with abscess
Get records from [facility] if possible
CT abdomen pelvis-noted rim-enhancing abscesses and concern for developing fistulous. Sigmoid colon and left adnexa/urinary bladder
Continue Zosyn
Colorectal surgery evaluation appreciated
Infectious disease consulted, recommendations appreciated
May need IR directed drain placed-patient aware
She is refusing IV fluids as she does not want to go to the bathroom all the time
For IV fluids, patient was changed to 500 mL every 6 hours instead
She may need surgery at some point hopefully not during the hospitalization if this can be managed conservatively
Needs colonoscopy to be done as outpatient-after 8 weeks
# Anemia
-Given anemia and thrombocytosis, will consider hematology consult
# Mild thrombocytosis-follow
# Hypothyroidism
Not compliant with medicines
Elevated TSH noted
Resume previous dose as she was not compliant with medicines
# Elevated [id number] secondary to infection. No right upper quadrant tenderness
Hepatic steatosis noted on CAT scan otherwise unremarkable
# Tobacco use disorder
Smoking cessation counseling
# Anxiety-continue as needed Xanax
# Obesity per BMI criteria
# DVT prophylaxis-Lovenox
# Full code
Anticipated Discharge: > 48 hours
Subjective/Interval History
-
Date of Service: October 27, 2023
Patient was seen and examined. She denied any new significant pain, chest pain, but was wondering what the next step is. Management discussed with her and her mom, who was present in patient's room.
Objective Data
-
Labs:
Laboratory Results
10/27/23
04:26
WBC 11.7 H
Hgb 9.9 L
Hct 31.2 L
Plt Count 426 H
Sodium 139
Potassium 4.7
Chloride 103
Carbon Dioxide 29
BUN 12
Creatinine 0.9
Glucose 93
Calcium 8.9
Total Bilirubin 0.4
AST 54 H
ALT 69 H
Alkaline Phosphatase 116
Vital Signs:
Vital Signs
Temp Pulse Resp BP Pulse Ox
97.8 F 79 20 115/76 95
10/27/23 07:21 10/27/23 07:21 10/27/23 07:21 10/27/23 07:21 10/27/23 08:18
I&O
10/26/23 10/27/23 10/28/23
06:59 06:59 06:59
Intake Total 290 / 290
Output Total
Balance 289 / 289
--- NOTE | 2023-10-27 10:25 | W.PN.CRS1 ---
Today's Communication / Plan
-
Attempted IR placement.
Assessment/Plan
-
Diverticulitis with abscesses.
1. WBC improving. Continue antibiotics per ID.
2. IR to attempt drain placement today.
3. Will continue to follow closely.
Subjective Data
Subjective Data
Date of Service: October 27, 2023
Last pain.
No nausea.
Objective Data
-
Vital Signs
Temp Pulse Resp BP Pulse Ox
97.8 F 79 20 115/76 95
10/27/23 07:21 10/27/23 07:21 10/27/23 07:21 10/27/23 07:21 10/27/23 08:18
Intake & Output
10/26/23 10/27/23 10/28/23
06:59 06:59 06:59
Intake Total 290 / 290
Output Total 1 / 1
Balance 289 / 289
Intake:
Oral fluids 240 / 240
IV piggybacks 50 / 50
Output:
Urine, Voided /
Other:
Number of approximated SMALL 1
amounts of urine
Number of approximated MODERATE 1
amounts of urine
Lab Results
10/27/23 04:26
10/27/23 04:26
Physical Exam
-
General: No Acute Distress
Chest: Clear
Cardiovascular: Regular Rate & Rhythm
Abdomen: Distended (Mild) and Tender (Mild left lower quadrant)
[2023-10-27] MEDS: FLUSH (NSS) 1 FLUSH IV ×2 (12:21→18:05)
--- NOTE | 2023-10-27 13:19 | W.PN.ID1 ---
Date of Service
Date of Service: October 27, 2023
Today's Communication
Continue Zosyn.
Abscess drainage.
Assessment / Plan
# Recurrent diverticulitis - severe
# Diverticular abscesses
# Leukocytosis - improving
- For IR abscess drainage today. Send aerobic and anaerobic culture.
- Continue Zosyn d3
- Trend wbc
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
Hypothyroidism
Diverticulitis
Anxiety
BMI 37.5
Tobacco use disorder
C- section
Chief Complaint
-: Other (Diverticular abscess)
Subjective / Review of Systems
Abd pain continues to improve
Vital Signs / Physical Exam
Vital Signs
Vital Signs
Temp Pulse Resp BP Pulse Ox
97.8 F 79 20 115/76 95
10/27/23 07:21 10/27/23 07:21 10/27/23 07:21 10/27/23 07:21 10/27/23 08:18
Physical Exam
Constitutional: No Acute Distress
Pulmonary: Clear
Gastrointestinal: Soft, Tender (mild LLQ) and Non Distended
Objective Data
Lab Data
Lab Results
10/27/23 04:26
10/27/23 04:26
Estimated Creat Clear 81 ml/min 10/27/23 04:26
Total Bilirubin 0.4 mg/dl (0.2-1.3) 10/27/23 04:26
AST 54 U/L (14-36) H 10/27/23 04:26
ALT 69 U/L (0-35) H 10/27/23 04:26
Alkaline Phosphatase 116 U/L (38-126) 10/27/23 04:26
Most recent labs reviewed.
10/26/23 CT a/p: Severe acute colitis versus diverticulitis of the distal descending colon and proximal sigmoid colon. Rim-enhancing pericolonic abscesses in the left lower quadrant. Concern for developing fistulas between the sigmoid colon and the
left adnexa and urinary bladder.
--- NOTE | 2023-10-27 15:53 | PTCARENOTE ---
Pt AAO x3, HUMPHRIES well, ambulatory in room/padron, surya well, no c/o weakness/dizziness. Speech mumbled at times.VSS. On room air- pulse ox 94%, no SOB noted. Abd obese, soft; NPO maintained; pt surya small amts clear liquids. Voiding in BR without
difficulty. Pt currently off unit in IR for procedure. Will continue to monitor.
--- NOTE | 2023-10-27 17:27 | PTCARENOTE ---
Pt returned fro IR s/p LLQ DONY drain placement. Pt AAO x3, HUMPHRIES ambulatory to bed. VSS. On room air- pulse ox 92%. LLQ DONY drain with dsg D/I; small amts serosanguinous drainage noted in DONY bulb. resting comfortably at present. Will continue to
monitor.
--- NOTE | 2023-10-27 17:40 | CM ---
Alert awake oriented patient who lives with her mom Valerie and step dad Alexandre who in a 1 story home with 1 steps to enter.She is independent in driving and in all activities of daily living.Offered VN she declined.
No adaptive devices
Never had VN/SNF
Pharmacy [facility]
PCP Dr Debra Sibley [facility]
PLAN Home declined VN
[2023-10-27] MEDS: FLUSH (NSS) 2 FLUSH IV (23:18)
[2023-10-28 03:40] VITALS: BP 108/74
[2023-10-28] MEDS: SYNTHROID 175 MCG PO (05:10)
[2023-10-28] MEDS: ZOSYN 50 IV ×4 (05:10→23:04)
[2023-10-28 07:37] VITALS: BP 132/85
[2023-10-28 10:38] LABS: % Basophils 0.6 % (0-2); % Eosinophils 3.6 % (0-6); % Immature Granulocytes 1.4 % (0-0.5); % Lymphocytes 18.4 % (20.5-51.1); % Monocytes 5.2 % (1.7-9.3); % Neutrophils 70.8 % (42.2-75.2); Absolute Basophils 0.1 10^3/uL (0-0.2); Absolute Eosinophils 0.3 10^3/uL (0-0.7); Absolute Immature Granulocytes 0.1 10^3/uL (0-0.05); Absolute Lymphocytes 1.7 10^3/uL (1.2-3.4); Absolute Monocytes 0.5 10^3/uL (0.1-0.6); Absolute Neutrophils 6.4 10^3/uL (1.4-6.5); Hemoglobin 10.3 g/dL (12.0-16.0); Mean Corp Hgb Conc. 32.2 g/dL (33.0-37.0); Mean Corpuscular Hgb 30.3 pg (27.0-31.0); Mean Corpuscular Volume 94.1 fL (81.0-99.0); Mean Platelet Volume 9.9 fL (7.4-10.4); Nucleated Red Blood Cells % 0 %; Platelet Count 453 10^3/uL (130-400); Red Cell Dist. Width 16.2 % (11.5-14.5); White Blood Cell Count 9.1 10^3/uL (4.8-10.8)
[2023-10-28 11:06] LABS: ALT (SGPT) 55 U/L (0-35); AST (SGOT) 34 U/L (14-36); Albumin 3.9 g/dl (3.5-5.0); Alkaline Phosphatase 113 U/L (38-126); Blood Urea Nitrogen 11 mg/dl (7-17); Calcium 8.9 mg/dl (8.4-10.2); Carbon Dioxide 30 mmol/L (22-30); Chloride 102 mmol/L (98-107); Estimated Creatinine Clearance 81 ml/min; Glucose 96 mg/dl (70-99); Magnesium 2.4 mg/dl (1.6-2.3); Potassium 4.3 mmol/L (3.5-5.1); Sodium 139 mmol/L (135-145); Total Bilirubin 0.4 mg/dl (0.2-1.3); Total Protein 6.6 g/dl (6.3-8.2); eGFR > 60.00
[2023-10-28 11:17] VITALS: BP 152/88
--- NOTE | 2023-10-28 12:16 | W.PN.CRS1 ---
Today's Communication / Plan
-
Ok for discharge once tolerating her diet.
Follow-up as an outpatient for drain management, possible colonoscopy and eventual surgery.
Assessment/Plan
-
Diverticulitis with abscesses s/p IR drain 10/26
1. WBC is now normal. Continue antibiotics per ID.
2. Advance to low residue diet.
3. Continue drain and will reevaluate as an outpatient.
Subjective Data
Subjective Data
Date of Service: October 28, 2023
Her pain has resolved other than some tenderness at the drain site. She is very hungry and her bowels are functioning.
Objective Data
-
Vital Signs
Temp Pulse Resp BP Pulse Ox
97.9 F 79 18 152/88 97
10/28/23 11:17 10/28/23 11:17 10/28/23 11:17 10/28/23 11:17 10/28/23 11:17
Intake & Output
10/27/23 10/28/23 10/29/23
06:59 06:59 06:59
Intake Total 290 / 290 350 / 350 5 / 5
Output Total
Balance 289 / 289 350 / 350 -5 / -5
Intake:
Oral fluids 240 / 240 240 / 240
IV piggybacks 50 / 50 100 / 100
Amount instilled into Drain (
Total)
Left Lower Abdomen Cody-
Ybarra Placed in IR
Output:
Drain Output (Total)
Left Lower Abdomen Cody-
Ybarra Placed in IR
Urine, Voided
Other:
Number of approximated MODERATE 1 3
amounts of urine
How many times incontinent 4
SATURATED amount urine
Lab Results
10/28/23 10:07
10/28/23 10:07
Physical Exam
-
General: No Acute Distress
Abdomen: Soft, Non Distended and Non Tender
--- NOTE | 2023-10-28 12:24 | PTCARENOTE ---
pt reported loose, bloody BM. Dr. Ibarra made aware. plan of care ongoing.
--- NOTE | 2023-10-28 13:06 | W.PN.HOSP.TC ---
Today's Communication/Plan
-
Continue antibiotics
Follow cultures
Appreciate colorectal surgery and infectious disease
Assessment / Plan
Assessment / Plan
47-year-old female was recently seen hospital in [place] and was told that she has diverticulitis. Patient came to [facility] for further treatment. Stated that she was there overnight. It is unclear if she left on her own. Per
nursing patient has been refusing to get IV fluids or keep telemetry on. She has been walking around on the floor and has been instructed not to go off of the floor.
Physical Exam
General: Not in acute distress
Cardiovascular system S1 is appreciated
Pulmonary: Clear to auscultation bilaterally
Abdomen: mild left lower quadrant tenderness. Positive bowel sounds.
Extremities: No cyanosis or edema.
# Acute diverticulitis with abscess
# Loose, bloody bowel movement on October 28, 2023
Get records from [facility] if possible
CT abdomen pelvis-noted rim-enhancing abscesses and concern for developing fistulous. Sigmoid colon and left adnexa/urinary bladder
Continue Zosyn
Colorectal surgery evaluation appreciated
Infectious disease consulted, recommendations appreciated
IR performed CT-guided drainage on 10/27/23
Diet advanced to low residue: follow-up as an outpatient for drain management, possible colonoscopy and eventual surgery.
She refused IV fluids as she does not want to go to the bathroom all the time
For IV fluids, patient was changed to 500 mL every 6 hours instead
# Anemia
-Given anemia and thrombocytosis, will consider hematology consult outpatient vs. inpatient
# Mild thrombocytosis-follow
# Hypothyroidism
Not compliant with medicines
Elevated TSH noted
Resume previous dose as she was not compliant with medicines
# Elevated VUMe-ixpwii-oqrdfkic secondary to infection. No right upper quadrant tenderness
Hepatic steatosis noted on CAT scan otherwise unremarkable
# Tobacco use disorder
Smoking cessation counseling
# Anxiety-continue as needed Xanax
# Obesity per BMI criteria
# DVT prophylaxis-Lovenox
# Full code
Anticipated Discharge: 24 - 48 hours
Subjective/Interval History
-
Date of Service: October 28, 2023
Patient was seen and examined. No pain, was sleeping comfortably. Per patient's nurse, patient had a loose, blood bowel movement.
Objective Data
-
Labs:
Laboratory Results
10/28/23
10:07
WBC 9.1
Hgb 10.3 L
Hct 32.0 L
Plt Count 453 H
Sodium 139
Potassium 4.3
Chloride 102
Carbon Dioxide 30
BUN 11
Creatinine 0.9
Glucose 96
Calcium 8.9
Total Bilirubin 0.4
AST 34
ALT 55 H
Alkaline Phosphatase 113
Vital Signs:
Vital Signs
Temp Pulse Resp BP Pulse Ox
97.9 F 79 18 152/88 97
10/28/23 11:17 10/28/23 11:17 10/28/23 11:17 10/28/23 11:17 10/28/23 11:17
I&O
10/27/23 10/28/23 10/29/23
06:59 06:59 06:59
Intake Total 290 / 290 350 / 350 5 / 5
Output Total
Balance 289 / 289 350 / 350 -5 / -5
--- NOTE | 2023-10-28 13:43 | W.PN.ID1 ---
Date of Service
Date of Service: October 28, 2023
Today's Communication
Continue Zosyn d4 pending cx data
Assessment / Plan
# Recurrent diverticulitis - severe
# Diverticular abscesses
# Leukocytosis - resolved
- 8/12 s/p IR abscess drainage placement. Aerobic cx neg to date; anaerobic culture pending
- Continue Zosyn d4 pending cx data
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
Hypothyroidism
Diverticulitis
Anxiety
BMI 37.5
Tobacco use disorder
C- section
Chief Complaint
-: Other (Diverticular abscess)
Subjective / Review of Systems
Abdominal pain better.
Vital Signs / Physical Exam
Vital Signs
Vital Signs
Temp Pulse Resp BP Pulse Ox
97.9 F 79 18 152/88 97
10/28/23 11:17 10/28/23 11:17 10/28/23 11:17 10/28/23 11:17 10/28/23 11:17
Physical Exam
Constitutional: No Acute Distress
Gastrointestinal: Soft, Non Tender, Non Distended and Other (DONY drain with bloody-purulent fluid)
Objective Data
Lab Data
Lab Results
10/28/23 10:07
10/28/23 10:07
Estimated Creat Clear 81 ml/min 10/28/23 10:07
Total Bilirubin 0.4 mg/dl (0.2-1.3) 10/28/23 10:07
AST 34 U/L (14-36) 10/28/23 10:07
ALT 55 U/L (0-35) H 10/28/23 10:07
Alkaline Phosphatase 113 U/L (38-126) 10/28/23 10:07
Most recent labs reviewed.
Micro Results:
10/26/23 14:00 Anaerobic Culture - Preliminary
Abscess Culture pending. Anaerobic cultures are examined after 3
days incubation. Additional information to follow.
10/26/23 10:15 Wound Culture - Preliminary
Abdomen No growth
Gram Stain - Preliminary
10/26/23 CT a/p: Severe acute colitis versus diverticulitis of the distal descending colon and proximal sigmoid colon. Rim-enhancing pericolonic abscesses in the left lower quadrant. Concern for developing fistulas between the sigmoid colon and the
left adnexa and urinary bladder.
[2023-10-28 15:15] VITALS: BP 142/81
[2023-10-28] MEDS: DILAUDID 0.5 MG IV (15:44)
[2023-10-28] MEDS: ZOFRAN 4 MG IV (15:46)
--- NOTE | 2023-10-28 16:01 | PTCARENOTE ---
pt complaining of severe pain after low residue diet initiated this AM. colorectal and hospitalist made aware. administered Dilaudid 0.5mg IV in R forearm IV site. plan of care ongoing.
[2023-10-28] MEDS: TORADOL 10 MG IV (16:28)
[2023-10-28] MEDS: TYLENOL 650 MG PO ×2 (16:34→20:34)
[2023-10-28] MEDS: TIGAN 200 MG IM (17:19)
--- NOTE | 2023-10-28 17:49 | PTCARENOTE ---
pt complaining of ongoing nausea post zofran administration at [address]. notified dr covarrubias and Tigan was ordered. pt reports relief post Tigan administration at 17:18. plan of care ongoing.
[2023-10-28 19:32] VITALS: BP 139/91
[2023-10-28 23:44] VITALS: BP 122/80
[2023-10-29 03:04] VITALS: BP 104/72
[2023-10-29] MEDS: ZOSYN 50 IV ×4 (06:18→23:01)
[2023-10-29] MEDS: SYNTHROID 175 MCG PO (06:19)
[2023-10-29 07:45] VITALS: BP 118/84
--- NOTE | 2023-10-29 09:21 | W.PN.CRS1 ---
Today's Communication / Plan
-
Discharge when tolerating a diet
Will be discharged with drain in drain study to be ordered as an outpatient
Assessment/Plan
-
Diverticulitis with abscesses s/p IR drain 10/26
1. WBC is now normal. Continue antibiotics per ID.
2. Continue low residue diet as tolerated.
3. Continue drain and will reevaluate as an outpatient with a drain study.
4. Dispo when tolerating a diet.
Subjective Data
Subjective Data
Date of Service: October 29, 2023
Patient states she vomited yesterday afternoon after receiving Dilaudid. She has no nausea or vomiting this morning. She did eat a full breakfast with no problems yesterday but stopped eating after she vomited. She is having bowel movements. She
has no abdominal pain, just soreness.
Objective Data
-
Vital Signs
Temp Pulse Resp BP Pulse Ox
98.1 F 75 18 118/84 93
10/29/23 07:45 10/29/23 07:45 10/29/23 07:45 10/29/23 07:45 10/29/23 07:45
Intake & Output
10/28/23 10/29/23 10/30/23
06:59 06:59 06:59
Intake Total 350 / 350 1205 / 1205
Output Total
Balance 350 / 350 1195 / 1195
Intake:
Oral fluids 240 / 240 1200 / 1200
IV piggybacks 100 / 100
Amount instilled into Drain (
Total)
Left Lower Abdomen Cody-
Ybarra Placed in IR
Output:
Drain Output (Total)
Left Lower Abdomen Cody-
Ybarra Placed in IR
Other:
Number of approximated MODERATE 3 2 1
amounts of urine
How many times incontinent 4
SATURATED amount urine
Lab Results
10/28/23 10:07
10/28/23 10:07
Physical Exam
-
General: No Acute Distress and AOx3
Abdomen: Soft, Non Distended, Non Tender and Other (DONY drain bloody serosanguineous)
Skin: Warm and Dry
--- NOTE | 2023-10-29 11:01 | W.PN.HOSP.TC ---
Today's Communication/Plan
-
Cultures pending
Appreciate ID recommendations on de-escalation of antibiotics
Appreciate colorectal surgery
Assessment / Plan
Assessment / Plan
47-year-old female was recently seen hospital in [facility] and was told that she has diverticulitis. Patient came to [facility] for further treatment. Stated that she was there overnight. It is unclear if she left on her own. Per
nursing patient has been refusing to get IV fluids or keep telemetry on. She has been walking around on the floor and has been instructed not to go off of the floor.
Physical Exam
General: Not in acute distress
Cardiovascular system S1 is appreciated
Pulmonary: Clear to auscultation bilaterally
Abdomen: mild left lower quadrant tenderness. Positive bowel sounds. Drain in place with serosanguineous discharge.
Extremities: No cyanosis or edema.
# Acute diverticulitis with abscess
# Loose, bloody bowel movement on October 28, 2023
Get records from [facility] if possible
CT abdomen pelvis-noted rim-enhancing abscesses and concern for developing fistulous. Sigmoid colon and left adnexa/urinary bladder
Continue Zosyn
Colorectal surgery evaluation appreciated
Infectious disease consulted, recommendations appreciated
IR performed CT-guided drainage on 10/27/23
Diet advanced to low residue: follow-up as an outpatient for drain management, possible colonoscopy and eventual surgery.
If need for any constipation going forward, patient can have Miralax and Dulcolax but NOT senna, as per colorectal surgery
# Anemia
-Given anemia and thrombocytosis, will consider hematology consult outpatient vs. inpatient
# Mild thrombocytosis-follow
# Hypothyroidism
Not compliant with medicines
Elevated TSH noted
Resumed previous dose as she was not compliant with medicines
# Elevated SDDn-vgvnrn-qmtbkzwr secondary to infection. No right upper quadrant tenderness
Hepatic steatosis noted on CAT scan otherwise unremarkable
# Tobacco use disorder
Smoking cessation counseling
# Anxiety-continue as needed Xanax
# Obesity per BMI criteria
# DVT prophylaxis-Lovenox
# Full code
Anticipated Discharge: 24 - 48 hours
Subjective/Interval History
-
Date of Service: October 29, 2023
Patient was also seen and examined. She had vomiting yesterday but denied any vomiting or any complaints this morning.
Objective Data
-
Vital Signs:
Vital Signs
Temp Pulse Resp BP Pulse Ox
98.1 F 75 18 118/84 93
10/29/23 07:45 10/29/23 07:45 10/29/23 07:45 10/29/23 07:45 10/29/23 07:45
I&O
10/28/23 10/29/23 10/30/23
06:59 06:59 06:59
Intake Total 350 / 350 1205 / 1205
Output Total
Balance 350 / 350 1195 / 1195
[2023-10-29 11:48] LABS: % Basophils 0.7 % (0-2); % Eosinophils 2.4 % (0-6); % Immature Granulocytes 1.3 % (0-0.5); % Lymphocytes 18.1 % (20.5-51.1); % Monocytes 4.8 % (1.7-9.3); % Neutrophils 72.7 % (42.2-75.2); Absolute Basophils 0.1 10^3/uL (0-0.2); Absolute Eosinophils 0.3 10^3/uL (0-0.7); Absolute Immature Granulocytes 0.1 10^3/uL (0-0.05); Absolute Monocytes 0.5 10^3/uL (0.1-0.6); Absolute Neutrophils 7.8 10^3/uL (1.4-6.5); Hematocrit 32.9 % (37.0-47.0); Hemoglobin 10.7 g/dL (12.0-16.0); Mean Corp Hgb Conc. 32.5 g/dL (33.0-37.0); Mean Corpuscular Hgb 29.6 pg (27.0-31.0); Mean Corpuscular Volume 91.1 fL (81.0-99.0); Mean Platelet Volume 9.5 fL (7.4-10.4); Nucleated Red Blood Cells % 0.2 %; Platelet Count 536 10^3/uL (130-400); Red Blood Cell Count 3.61 10^6/uL (4.20-5.40); Red Cell Dist. Width 16.1 % (11.5-14.5); White Blood Cell Count 10.8 10^3/uL (4.8-10.8)
[2023-10-29 12:18] LABS: Blood Urea Nitrogen 13 mg/dl (7-17); Calcium 9.6 mg/dl (8.4-10.2); Carbon Dioxide 30 mmol/L (22-30); Chloride 101 mmol/L (98-107); Estimated Creatinine Clearance 81 ml/min; Glucose 114 mg/dl (70-99); Potassium 4.8 mmol/L (3.5-5.1); Sodium 141 mmol/L (135-145); eGFR > 60.00
--- NOTE | 2023-10-29 14:01 | W.PN.ID1 ---
Date of Service
Date of Service: October 29, 2023
Today's Communication
If final aerobic cx remains negative, transition to Levofloxacin 750mg po qd and metronidazole 500mg po q8h x 2 more weeks.
Assessment / Plan
# Recurrent diverticulitis - severe
# Diverticular abscesses
# Leukocytosis - resolved
- 10/26 s/p IR abscess drainage placement. Aerobic cx neg to date; anaerobic culture pending
- Continue Zosyn d5 pending cx data
- If final aerobic cx remains negative, transition to Levofloxacin 750mg po qd and metronidazole 500mg po q8h x 2 more weeks.
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
Hypothyroidism
Diverticulitis
Anxiety
BMI 37.5
Tobacco use disorder
C- section
Chief Complaint
-: Other (Diverticular abscess)
Subjective / Review of Systems
Abd pain better. Had emesis last night.
Vital Signs / Physical Exam
Vital Signs
Vital Signs
Temp Pulse Resp BP Pulse Ox
98.1 F 75 18 118/84 95
10/29/23 07:45 10/29/23 07:45 10/29/23 07:45 10/29/23 07:45 10/29/23 09:00
Physical Exam
Constitutional: Comfortable
Gastrointestinal: Soft, Non Tender, Non Distended and Other (DONY drain blood tinged cloudy fluid)
Objective Data
Lab Data
Lab Results
10/29/23 11:29
10/29/23 11:29
Estimated Creat Clear 81 ml/min 10/29/23 11:29
Total Bilirubin 0.4 mg/dl (0.2-1.3) 10/28/23 10:07
AST 34 U/L (14-36) 10/28/23 10:07
ALT 55 U/L (0-35) H 10/28/23 10:07
Alkaline Phosphatase 113 U/L (38-126) 10/28/23 10:07
Most recent labs reviewed.
Micro Results:
10/26/23 10:15 Wound Culture - Preliminary
Abdomen No growth
Gram Stain - Preliminary
10/26/23 14:00 Anaerobic Culture - Preliminary
Abscess Culture pending. Anaerobic cultures are examined after 3
days incubation. Additional information to follow.
10/26/23 CT a/p: Severe acute colitis versus diverticulitis of the distal descending colon and proximal sigmoid colon. Rim-enhancing pericolonic abscesses in the left lower quadrant. Concern for developing fistulas between the sigmoid colon and the
left adnexa and urinary bladder.
[2023-10-29 15:29] VITALS: BP 160/90
[2023-10-29] MEDS: LOVENOX 40 MG SC (17:35)
[2023-10-29] MEDS: ZOFRAN 4 MG IV (17:35)
--- NOTE | 2023-10-29 17:40 | CM ---
Pt on IV antibiotics.
Pt has a DONY drain and is flushed.
Asked pt is she will need a VN she said she is unsure.
Will offered VN again .
PLAN Probable home with VN
[2023-10-29 23:05] VITALS: BP 143/101
[2023-10-29 23:13] VITALS: BP 144/100
[2023-10-29] MEDS: TYLENOL 650 MG PO (23:14)
[2023-10-30 03:02] VITALS: BP 115/76
[2023-10-30] MEDS: ZOSYN 50 IV ×2 (05:26→12:27)
[2023-10-30] MEDS: SYNTHROID 175 MCG PO (05:26)
[2023-10-30 07:25] VITALS: BP 126/88
--- NOTE | 2023-10-30 11:11 | W.PN.HOSP.TC ---
Today's Communication/Plan
-
Discharge today
Assessment / Plan
Assessment / Plan
47-year-old female was recently seen hospital in [facility] and was told that she has diverticulitis. Patient came to [facility] for further treatment. Stated that she was there overnight. It is unclear if she left on her own. Per
nursing patient has been refusing to get IV fluids or keep telemetry on. She has been walking around on the floor and has been instructed not to go off of the floor.
Physical Exam
General: Not in acute distress
Cardiovascular system S1 is appreciated
Pulmonary: Clear to auscultation bilaterally
Abdomen: mild left lower quadrant tenderness. Positive bowel sounds. Drain in place with serosanguineous discharge.
Extremities: No cyanosis or edema.
# Acute diverticulitis with abscess
# Loose, bloody bowel movement on October 28, 2023
CT abdomen pelvis-noted rim-enhancing abscesses and concern for developing fistulous. Sigmoid colon and left adnexa/urinary bladder
Continue Zosyn while inpatient.
On discharge: Levofloxacin 750mg po qd and metronidazole 500mg po q8h x 14 days more each
QTc is okay.
Colorectal surgery evaluation appreciated
Infectious disease consulted, recommendations appreciated
IR performed CT-guided drainage on 10/27/23
Diet advanced to low residue: follow-up as an outpatient for drain management, possible colonoscopy and eventual surgery.
If need for any constipation going forward, patient can have Miralax and Dulcolax but NOT senna, as per colorectal surgery
Discussed case today with Dr. Dinh of infectious disease, and patient can be discharged today from her standpoint
Discussed case today with Dr. Ibarra of colorectal surgery, and patient can be discharged today from his standpoint
# Anemia
-Given anemia and thrombocytosis, hematology follow-up outpatient
-Recheck CBC and BMP in 1 to 2 days outpatient
# Mild thrombocytosis-follow
# Hypothyroidism
Not compliant with medicines
Elevated TSH noted
Resumed previous dose as she was not compliant with medicines
Recheck TSH and thyroid studies outpatient
# Elevated TPBd-hmxbad-dejhawuw secondary to infection. No right upper quadrant tenderness
Hepatic steatosis noted on CAT scan otherwise unremarkable
# Tobacco use disorder
Smoking cessation counseling
# Anxiety-continue as needed Xanax
# Obesity per BMI criteria
# DVT prophylaxis-Lovenox
# Full code
More than 30 minutes spent in discharge including
Final examination of the patient
Summarizing hospital stay
Instructions for continuing care to all relevant caregivers
Preparation of discharge records, prescriptions, and referral forms
Total time spent (in minutes): 43
Anticipated Discharge: Today
Subjective/Interval History
-
Date of Service: October 30, 2023
Patient was seen and examined. She had some nausea still.
Objective Data
-
Vital Signs:
Vital Signs
Temp Pulse Resp BP Pulse Ox
98.2 F 78 20 126/88 94
10/30/23 07:25 10/30/23 07:25 10/30/23 07:25 10/30/23 07:25 10/30/23 08:00
I&O
10/29/23 10/30/23 10/31/23
06:59 06:59 06:59
Intake Total 1205 / 1205 1785 / 1785
Output Total
Balance 1195 / 1195 1773 / 1773
--- NOTE | 2023-10-30 12:58 | W.DS.TRANS ---
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
-
Discharge Instructions:
Discharge Diagnosis/Procedures # Acute diverticulitis with abscess
# Loose, bloody bowel movement on October 27,
2023
# Anemia
# Mild thrombocytosis-follow
# Hypothyroidism
# Elevated hepatic transaminases
# Hepatic steatosis
# Tobacco use disorder
# Anxiety-continue as needed Xanax
# Obesity per BMI criteria
# 'Hepatic Steatosis' and 'Shotty
retroperitoneal lymph nodes' on CT Imaging
Diet Low Residue
Activity As tolerated
Driving Restrictions Not until seen by your Dr
Blood Work Recheck CBC and CMP in 1 to 2 days, with your
primary care provider's office, outpatient
Other Services VN
Instructions: Levofloxacin (Systemic)
Metronidazole (Systemic)
Stand-Alone Forms:
Changes to Home Medications: Yes
Discharge Medications:
DC Medications w/original date entered in [facility]
levothyroxine 175 mcg tablet 175 mcg PO DAILY Thyroid 12/15/21
alprazolam 1 mg tablet (Xanax) 1 mg PO TID PRN anxiety #60 tabs 12/24/21
docusate sodium 100 mg capsule (Colace) 200 mg PO BID 10/25/23
polyethylene glycol 3350 17 gram/dose oral powder (Miralax) 4 g PO DAILYPRN PRN constipation 10/25/23
simethicone 80 mg chewable tablet 160 mg PO BID 10/25/23
levofloxacin 750 mg tablet 750 mg PO DAILY 14 days #14 tabs 10/30/23
metronidazole 500 mg tablet 500 mg PO Q8H 14 days #42 tabs 10/30/23
Home Medication Changes
Levofloxacin and Metronidazole are new medications.
Amoxicillin-Clavulanate discontinued.
Pending Results: Yes
Additional Pending Results:
Microbiology/culture results from hospitalization
Total time spent discharging patient (in min): 43
--- NOTE | 2023-10-30 13:06 | W.PN.CRS1 ---
Today's Communication / Plan
-
Okay for dispo when tolerated diet
Assessment/Plan
-
Diverticulitis with abscesses s/p IR drain 10/26
1. WBC is now normal. Continue antibiotics per ID.
2. Continue low residue diet as tolerated.
3. Continue drain and will reevaluate as an outpatient with a drain study.
4. Dispo when tolerating a diet. Follow-up with Dr. Stephens in the office in 1 to 2 weeks.
Subjective Data
Subjective Data
Date of Service: October 30, 2023
Patient states she is been eating. Her pain is controlled. She does not feel tender.
Objective Data
-
Vital Signs
Temp Pulse Resp BP Pulse Ox
98.2 F 78 20 126/88 94
10/30/23 07:25 10/30/23 07:25 10/30/23 07:25 10/30/23 07:25 10/30/23 08:00
Intake & Output
10/29/23 10/30/23 10/31/23
06:59 06:59 06:59
Intake Total 1205 / 1205 1785 / 1785 5 / 5
Output Total
Balance 1195 / 1195 1773 / 1773 5 / 5
Intake:
Oral fluids 1200 / 1200 1680 / 1680
IV piggybacks 100 / 100
Amount instilled into Drain ( 5 / 5 5 / 5 5 / 5
Total)
Left Lower Abdomen Cody- / 5 / 5
Ybarra Placed in IR
Output:
Drain Output (Total)
Left Lower Abdomen Cody-
Ybarra Placed in IR
Other:
Number of approximated MODERATE 2 3
amounts of urine
Lab Results
10/29/23 11:29
10/29/23 11:29
Physical Exam
-
General: No Acute Distress and AOx3
Abdomen: Soft, Non Distended and Non Tender
Skin: Warm and Dry
[2023-10-30 14:25] VITALS: BP 139/97
--- NOTE | 2023-10-30 16:52 | CM ---
MD entered order for discharge.
Spoke with pt she said she lives with her boyfriend at [address] [facility] # [phone].
Pt requested VN .She said Sol VASQUEZ was good.
Pt has DONY that needs flushing daily.RN will have pt and boyfriend review flushes before dc.Pt said she has not seen her PCP recently . Contacted Dr Ibarra he agreed to sign VN orders .Sergio VASQUEZ given information.
SPoke with [place] she said her insurance requires an auth they will see her as as auth obtained.
PLAN Home with Sergio VASQUEZ fax [phone]
== END 2023-10-30 15:47 | disposition home health service (06) | DRG 392 ==
LOC: 4 EAST ACU 03:41
PROVIDERS: Hospitalist; Radiology Vascular & Interventional Radiology; Student in an Organized Health Care Education/Training Program; ADMITTING PHYSICIAN Hospitalist; ATTENDING PHYSICIAN Hospitalist; CONSULT PHYSICIAN Internal Medicine Infectious Disease; CONSULT PHYSICIAN Surgery; EMERGENCY PHYSICIAN Emergency Medicine
PROC: 0W9G30Z Drainage of Peritoneal Cavity with Drainage Device, Percutaneous Approach (ICD-10-PCS; 2023-10-27)
DX: K57.20 Diverticulitis of large intestine with perforation and abscess without bleeding (principal); I10 Essential (primary) hypertension; E03.9 Hypothyroidism, unspecified; K59.00 Constipation, unspecified; D64.9 Anemia, unspecified; D75.839 Thrombocytosis, unspecified; F41.1 Generalized anxiety disorder; F32.A Depression, unspecified; F17.200 Nicotine dependence, unspecified, uncomplicated; T38.1X6A Underdosing of thyroid hormones and substitutes, initial encounter; E66.09 Other obesity due to excess calories; Z68.37 Body mass index [BMI] 37.0-37.9, adult; Z91.148 Patient's other noncompliance with medication regimen for other reason
CPT/HCPCS: 49406; 74177; 80048; 80053; 81003; 81025; 82728; 83540; 83550; 83735; 84439; 84443; 85025; 85027; 87070; 87075; 87205; 93005; 93306; 96361; 96365; 96375; 99152; 99153; 99285; 99406; Q9967

== ENCOUNTER 2023-11-15 02:46 | Inpatient (IN) | payer OTHER, SELFPAY ==
[2023-11-14 19:54] VITALS: BP 141/103
[2023-11-14 23:05] VITALS: BMI 35.7
--- NOTE | 2023-11-14 23:09 | ED.GENMED ---
History of Present Illness
General
Chief Complaint: Abdominal Pain
Source: patient
Exam Limitations: none
Time Seen by Provider: 11/14/23 22:36
History of Present Illness
History of Present Illness:
This is 47 year old female that comes in with c/o worsening Diverticulitis. States that she has diverticulitis and has a drain place as she had an abscess. States that she was in the hospital for 2 weeks and went home on the . States that she
had blood work done for Dr. Saldaña and she told him that her pain had increased. Patient was told to come back to the hospital for admission. States that she is nauseated with the abd pain and has diarrhea. States that she also has a headache.
Denies any fever, chills, chest pain, SOB, vomiting, dizziness, urinary burning.
Past History
Past History
ED Past Medical History: HTN, Hypercholesterolemia, Seizures, Hypothyroidism, Psychiatric (Alcohol abuse, anxiety, depression, Agorophobia) and Other (Bronchitis, Diverticulitis with abscess, Anemia, Pre-diabetic, Pre-emphysema. )
ED Past Surgical History:
Social History
Tobacco: Smoker
Alcohol: Former
Drug: None
Personal: Single
Living: with family
Employment: Employed
Family History
Family History: Other
Review of Systems
Review of Systems
All Other Systems: ROS reviewed and negative except as documented in HPI and ROS
Constitutional: Reports no symptoms; Denies fever or chills
EENT: Reports no symptoms
Respiratory: Reports no symptoms; Denies cough or trouble breathing
Cardiac: Reports no symptoms; Denies chest pain
ABD/GI: Reports abdominal pain, nausea and diarrhea; Denies vomiting
: Reports no symptoms; Denies dysuria, frequency or urgency
Musculoskeletal: Reports no symptoms
Skin: Reports no symptoms
Neurological: Reports headache; Denies dizzy
Psychiatric: Reports no symptoms
Phy Exam
General Physical Exam
General Presentation: no apparent distress
General age: appears stated age
General Skin: warm and dry
General Habitus: normal
General Mental: alert
General Hydration: appears well hydrated
ENT Exam
ENT Exam: TM's normal, pharynx normal and neck supple
Eye Exam
Eye Exam: EOMI
Cardiovascular Exam
Cardiovascular Exam: regular rate/rhythm, no edema and normal peripheral pulses
Pulmonary Exam
Pulmonary Exam: lungs clear, no respiratory distress, no rales, chest non tender, no crackles, no rhonchi, no wheezing and no cough
Gastrointestinal Exam
Gastrointestinal Exam: soft, no organomegaly, no pulsatile mass, non distended, tender (Left sided tenderness with palpation) and other (Hypoactive bowel sounds)
External Findings: other (Left lower Quadrant DONY drain)
Musculoskeletal Exam
Musculoskeletal Exam: full ROM and no edema
Skin Exam
Skin Exam: normal color, warm/dry, no rash and no petechia
Psychiatric Exam
Psychiatric Exam: normal mood/affect
Course
Orders/Labs/Results
Orders:
Orders
11/14/23 22:57
0.9% Sodium Chloride 1000 ml [Nss] 1,000 ml IV BOLUS
11/14/23 23:15
Complete Blood Count/With Diff Urgent
Comprehensive Metabolic Panel Urgent
HCG, Serum Qualitative Screen Urgent
Comment: ADD ON
Lactic Acid Urgent
Manual Differential Urgent
11/15/23 00:01
CT Abd/pelvis W Iv Cont Urgent
Comment: History of abscess with drain.
Reason For Exam: Left sided abd pain
Abnormal Lab Results
11/14/23
23:15
RBC 3.91 L 10^6/uL
(4.20-5.40)
Hgb 11.5 L g/dL
(12.0-16.0)
Hct 34.5 L %
(37.0-47.0)
RDW 16.1 H %
(11.5-14.5)
MPV 10.5 H fL
(7.4-10.4)
Lymphocytes (Manual) 14 L %
(20-51)
BUN 21 H mg/dl
(7-17)
Glucose 131 H mg/dl
(70-99)
11/14/23 23:15
11/14/23 23:15
H/H slightly low. Dehydration. hyperglycemia, Lactic acid normal at 0.8, HCG negative.
Vital Signs
Initial and Last Documented VS:
Initial Vital Signs
Temp Pulse Resp BP Pulse Ox
98.4 F 95 16 141/103 98
11/14/23 19:54 11/14/23 19:54 11/14/23 19:54 11/14/23 19:54 11/14/23 19:54
Last Documented Vital Signs
Temp Pulse Resp BP Pulse Ox
98.4 F 80 16 113/85 96
11/14/23 19:54 11/15/23 00:00 11/14/23 23:22 11/15/23 00:00 11/15/23 00:00
MDM/Problems Addressed
Differential Diagnosis Includes:
Diverticulitis with abscess,
MDM/Problems Addressed:
This is a 47 year old female that comes in with c/o worsning abd pain. States that she was here for 2 weeks with diverticulitis and had a drain placed. State that her pain is worse. Patient states that Dr. Stephens wants her admitted for IV
antibiotics.
Will check labs and get CT scan.
Back into see patient. Explained that her Ct shows that there is recurrent or ongoing diverticulitis. There is still a fluid collection noted. Patient states that her drain has stopped draining. Will admit and start on IV antibiotics.
Chronic conditions affecting care:
Diverticulitis
Acute Exacerbation and/or Progression of Chronic Illness:
Diverticulitis
*Radiology
Radiology exam reviewed: radiology read reviewed (CT night hawk-Comparison october 26, 2023. Status post pigtail catheter drain placement in the left lower quadrant at the site of 2 abscess. The abdominal well abscess is no longer visualized. There
remains a bilobular 5.5 X 4.3cm fluid collection without peripheral enhancement in the left lower), all reviewed NAD by ED Provider (CT cont- lower uqdrant in the expected locatioin of the adnexa. This may represent a hydrosalpinx or residual fluid
collection. MIld wall thickening and surrounding fat stranding of the sigmoid, which may represent ongoing or recurrent diverticulitis. Calcifications in the body of the pancreas. ) and other (CT cont- appendix is normal. )
*Pulse Oximetry
Patient hypoxic: no
*EKG
Interpreted by ED Provider?: NA
Rate: EKG- N/A
*Assembly Repairer Interpretation
Rate: Assembly Repairer- N/A
*Critical Care Note
Total Time (30-74mins, 75-104mins- exclusive of procedures): Not Applicable
ED Attending Note
-
Portions of this chart may have been created with voice recognition software.� Occasional wrong word or��sound alike� substitutions may have occurred due to the inherent limitations of voice recognition software.
Discharge Plan
Departure
Patient Disposition: Admit
Date of Disposition: 11/15/23
Time of Disposition: 01:25
Admit to: Med/Surg
Presentation/result/management discussed w/ accepting MD/DO: Hospitalist
Patient with high blood pressure during this ER visit?: No
Condition: Good
Covid-19: Not Applicable
Discharge Problem:
Diverticulitis, Abdominal pain
Prescriptions:
No Action
levothyroxine 175 mcg tablet
175 mcg PO DAILY
alprazolam [Xanax] 1 mg tablet
1 mg PO TID PRN (Reason: anxiety) Qty: 60 0RF
simethicone 80 mg Tablet,Chewable
160 mg PO BID
Referrals:
Shaji Adler MD [Family Provider] -
Interventions
Interventions:
*Risk Screen - Suicide Last Done: 11/14/23 19:54
*General Assessment Last Done: 11/14/23 19:54
*Neglect/Abuse Screening Last Done: 11/14/23 19:54
ED- Fall Risk Assessment Last Done: 11/14/23 23:30
*ED COVID-19 Vaccine History Last Done: 11/14/23 19:54
DD-Felfhs-Weucqpxcqj Assessment Last Done: 11/14/23 23:30
Discharge Date and Time
Print Language: CITIZEN OF [place]
[2023-11-14] MEDS: NSS 1000 IV (23:18)
[2023-11-14 23:22] VITALS: BP 117/84
[2023-11-14 23:25] LABS: Hematocrit 34.5 % (37.0-47.0); Hemoglobin 11.5 g/dL (12.0-16.0); Mean Corp Hgb Conc. 33.3 g/dL (33.0-37.0); Mean Corpuscular Hgb 29.4 pg (27.0-31.0); Mean Corpuscular Volume 88.2 fL (81.0-99.0); Mean Platelet Volume 10.5 fL (7.4-10.4); Platelet Count 381 10^3/uL (130-400); Red Blood Cell Count 3.91 10^6/uL (4.20-5.40); Red Cell Dist. Width 16.1 % (11.5-14.5); White Blood Cell Count 9.2 10^3/uL (4.8-10.8)
[2023-11-14 23:32] LABS: HCG, Serum Qualitative Screen Negative
--- NOTE | 2023-11-14 23:32 | EDRN ---
Pt discharged from this hospital on the after being admitted with diverticulitis with abscess. Pt had a DONY drain inserted and says there has not been drainage for past few days. Pt notes increased nausea and abd pain and says she wants the
drain removed because she doesn't need it. Pt was advised to come to ED for admission to hospital. Pt has a headache. Pt denies fever/chills, cp, sob, urinary symptoms, dizziness, vomiting. Appetite normal.
[2023-11-14 23:35] LABS: Lactic Acid 0.8 mmol/L (0.7-2.0)
[2023-11-15] VITALS (10 sets, daily range): BP systolic 97–143; BP diastolic 72–96; BMI 35.5
[2023-11-15 00:03] LABS: ALT (SGPT) 24 U/L (0-35); AST (SGOT) 33 U/L (14-36); Alkaline Phosphatase 81 U/L (38-126); Blood Urea Nitrogen 21 mg/dl (7-17); Calcium 9.7 mg/dl (8.4-10.2); Carbon Dioxide 25 mmol/L (22-30); Chloride 107 mmol/L (98-107); Estimated Creatinine Clearance 104 ml/min; Glucose 131 mg/dl (70-99); Potassium 4.2 mmol/L (3.5-5.1); Sodium 143 mmol/L (135-145); Total Bilirubin 0.4 mg/dl (0.2-1.3); Total Protein 6.5 g/dl (6.3-8.2); eGFR > 60.00
[2023-11-15 00:22] LABS: Atypical Lymphocytes 13 %; Band Neutrophils 2 % (0-3); Eosinophils 3 % (0-6); Lymphocytes 14 % (20-51); Monocytes 4 % (2-9); Normal RBC Morphology Yes; Platelets Checked Yes; Segmented Neutrophils 64 % (42-75); Total Cells Counted 100
[2023-11-15] MEDS: FLAGYL 500 MG 100 IV (01:20)
--- NOTE | 2023-11-15 01:47 | HPS.HSE ---
Family Physician
-
Family Physician: Shaji Adler MD
Chief Complaint
-
abdominal pain
History of Present Illness
47F with PMH significant for diverticular disease, anxiety and hypothyroidism who presents to ED with worsening Diverticulitis. Recent admission for complicated diverticulitis with abscess s/p drain placement.
She was in the hospital for 2 weeks and went home on the .
- currently increased abdominal pain had increased.
- Patient was told to come back to the hospital for admission.
ROS:
Nauseated with the abd pain and has diarrhea.
POS headache.
Medical History
Past Medical History
Past Medical History: Reports Other
Additional Past Medical History:
Diverticular Disease
Hypothyroidism
Obesity
Anxiety / Depression
Past Surgical History: Reports Other
Additional Past Surgical History:
Social History
Tobacco: Smoker (Current every day smoker. 'Too much'.)
Alcohol: None
Drug: None
Family History
Family History: Not pertinent
Allergies / Home Medications
Allergies reflects when Allergies were last updated in [employer].
Home Medications with original date entered in [employer]
Allergy/Medication List:
Allergies
Allergy/AdvReac Type Severity Reaction Status Date / Time
No Known Allergies Allergy Verified 10/25/23 21:20
Home Medications
levothyroxine 175 mcg tablet 175 mcg PO DAILY Thyroid 12/15/21
alprazolam 1 mg tablet (Xanax) 1 mg PO TID PRN anxiety #60 tabs 12/24/21
docusate sodium 100 mg capsule (Colace) 200 mg PO BID 10/25/23
polyethylene glycol 3350 17 gram/dose oral powder (Miralax) 4 g PO DAILYPRN PRN constipation 10/25/23
simethicone 80 mg chewable tablet 160 mg PO BID 10/25/23
amoxicillin 875 mg-potassium clavulanate 125 mg tablet 1 tab PO BID 10/26/23
Review of Systems
-
History Source: Patient
A 12 point ROS was completed and negative except as noted: Yes
Constitutional: Reports Fatigue; Denies Fever or Chills
EENT: Denies Sore Throat
Respiratory: Reports Trouble Breathing; Denies Cough
Cardiac: Denies Chest Pain or Palpitations
Abdomen/GI: Reports Abdominal Pain; Denies Nausea, Vomiting, Diarrhea, Constipated, Bloody Stools or Black Stools
: Reports Other (Difficulty urinating.); Denies Dysuria, Frequency or Bleeding
Neurological: Denies Dizzy or Headache
Psych: Denies Depression or Anxiety
Physical Exam
Vital Signs
Vital Signs
Temp Pulse Resp BP Pulse Ox
98.4 F 78 16 102/77 97
11/14/23 19:54 11/15/23 01:25 11/14/23 23:22 11/15/23 01:25 11/15/23 01:26
Physical Exam
General: Other (47y F in mild distress due to pain and dyspnea.)
HEENT: Moist mucous membranes and Other (Edentulous.)
Respiratory: Other (Decreased BS bilaterally.)
Cardiac: S1/S2 and Regular Rhythm; No Murmur
GI: Other (Obese, pos BS. Pos tenderness in LLQ without rebound.)
Musculoskeletal: No Clubbing, No Cyanosis and No Edema
Neuro: AO x 3
Laboratory Results
-
11/14/23 23:15
11/14/23 23:15
Laboratory Results
Lactic Acid 0.8 mmol/L (0.7-2.0) 11/14/23 23:15
Total Bilirubin 0.4 mg/dl (0.2-1.3) 11/14/23 23:15
AST 33 U/L (14-36) 11/14/23 23:15
ALT 24 U/L (0-35) 11/14/23 23:15
Alkaline Phosphatase 81 U/L (38-126) 11/14/23 23:15
Data Reviewed
-
Diagnostic Radiology: Report Reviewed by me
Lab Data: Labs Reviewed by me
Old Records: Requested
Impression/Plan
-
Vital Signs
Temp Pulse Resp BP Pulse Ox
98.4 F 78 16 102/77 97
11/14/23 19:54 11/15/23 01:25 11/14/23 23:22 11/15/23 01:25 11/15/23 01:26
Laboratory Tests
10/29/23 11/14/23
11:29 23:15
WBC 9.2
Hgb 10.7 L 11.5 L
BUN 21 H
Creatinine 0.7
eGFR > 60.00
HCG, Qual Negative
CT [facility] report:
- Comparison october 26, 2023. Status post pigtail catheter drain placement in the left lower quadrant at the site of 2 abscess.
The abdominal well abscess is no longer visualized.
- There remains a bilobular 5.5 X 4.3cm fluid collection without peripheral enhancement in the LLQ in the expected locatioin of the adnexa. This may represent a hydrosalpinx or residual fluid collection.
- Mild wall thickening and surrounding fat stranding of the sigmoid, which may represent ongoing or recurrent diverticulitis. Calcifications in the body of the pancreas
- appendix is normal. )
Last hospitalist admission: 10/26/23 - 10/30/23
DC DCXS: Acute diverticulitis with abscess
ASSESSMENT & PLAN
Complicated Diverticulitis with persistent abscess vs residual fluid collection
Pigtail catheter drain placement in the left lower quadrant at the site of 2 abscess.
- IV Zosyn for now in place of IV LVQ intitated at ER
- NPO, IVFs, supportive care / pain control.
- CRS consulted
Hypothyroidism
-Reports partially compliant with her T4 supplementation.
- Continue / resume current dose for now.
Tobacco Use Disorder
Suspected COPD
- Nebs PRN.
- Encourage smoking cessation efforts.
Generalized Anxiety
- Stable.
- Continue PRN alprazolam
Obesity due to excess calories
- Encourage healthy diet and increased exercise with goal of weight loss.
DVT Prophylaxis: SCDs
Code Status: Full
IP MS
[2023-11-15] MEDS: LEVAQUIN 100 IV (02:32)
[2023-11-15] MEDS: TYLENOL 650 MG PO (05:17)
[2023-11-15] MEDS: NSS 1000 IV (05:18)
[2023-11-15 07:04] LABS: Blood Urea Nitrogen 17 mg/dl (7-17); Calcium 9.4 mg/dl (8.4-10.2); Carbon Dioxide 26 mmol/L (22-30); Chloride 109 mmol/L (98-107); Estimated Creatinine Clearance 121 ml/min; Glucose 112 mg/dl (70-99); Potassium 4.5 mmol/L (3.5-5.1); Sodium 145 mmol/L (135-145); eGFR > 60.00
[2023-11-15] MEDS: ZOSYN 50 IV ×3 (07:11→20:18)
[2023-11-15] MEDS: ZOFRAN 4 MG IV ×2 (07:17→22:07)
--- NOTE | 2023-11-15 07:23 | PTCARENOTE ---
Pt states her DONY drain should be flushed w/ 10ml NSS once a day. Pt states she has not had it done since yesterday. DONY drain flushed with NSS 10ml syringe. Pt states she felt the NSS instill and states she never felt that before. RN educated pt
on proper flushing technique. Pt sates she has been doing it wrong at home. Pt has been turning the off valve towards her body instead of towards the drain. Pt has been flushing the DONY drain and not the catheter in her Abdomen. Pt educated on
proper flushing. Will continue to monitor.
[2023-11-15] MEDS: DILAUDID 0.5 MG IV ×2 (07:28→22:07)
[2023-11-15 07:29] LABS: Hematocrit 36.2 % (37.0-47.0); Mean Corp Hgb Conc. 33.1 g/dL (33.0-37.0); Mean Corpuscular Hgb 29.3 pg (27.0-31.0); Mean Corpuscular Volume 88.5 fL (81.0-99.0); Mean Platelet Volume 10.4 fL (7.4-10.4); Platelet Count 387 10^3/uL (130-400); Red Blood Cell Count 4.09 10^6/uL (4.20-5.40); Red Cell Dist. Width 16.1 % (11.5-14.5); White Blood Cell Count 7.6 10^3/uL (4.8-10.8)
[2023-11-15 08:08] LABS: % Basophils 0.7 % (0-2); % Immature Granulocytes 0.4 % (0-0.5); % Lymphocytes 35.8 % (20.5-51.1); % Monocytes 6.2 % (1.7-9.3); % Neutrophils 51.9 % (42.2-75.2); Absolute Basophils 0.1 10^3/uL (0-0.2); Absolute Eosinophils 0.4 10^3/uL (0-0.7); Absolute Lymphocytes 2.7 10^3/uL (1.2-3.4); Absolute Monocytes 0.5 10^3/uL (0.1-0.6); Absolute Neutrophils 3.9 10^3/uL (1.4-6.5); Nucleated Red Blood Cells % 0 %
--- NOTE | 2023-11-15 08:14 | W.PN.UPDATE ---
Update Note
Progress Note Update
Patient seen and examined, agree with hospitalist H&P.
Appreciate colorectal surgery and interventional radiology input.
Patient has another fluid collection in the left lower quadrant, she is refusing placement of second drain for possible abscess.
Continue IV antibiotics, check transvaginal ultrasound to clarify if left lower quadrant fluid collection is undrained abscess or hydrosalpinx.
--- NOTE | 2023-11-15 10:04 | PTCARENOTE ---
Pt arrived to [facility] from ED. Pt walked from stretcher, stood on standing scale and walked to the bed. Pt has LLQ DONY drain fro previous admission, with no drainage. L elbow small abrasion noted. Pt refused to change into hospital gown. Pt also
refusing IVF. Pt states no pain or nausea at this time. Pt oriented to call valera and room, bed locked and in lowest position, call valera within reach.
--- NOTE | 2023-11-15 12:22 | W.PN.UPDATE ---
Update Note
Progress Note Update
Patient is upset that she may need a second drain, reports that the first procedure was very traumatic for her. I showed her the most recent CT, and explained that the LLQ fluid collection may be undrained abscess or hydrosalpinx. I explained that
people can become very sick if there is undrained abscess, and offered to needle aspirate the collection to see if it's pus. She would prefer a noninvasive way to distinguish abscess from hydrosalpinx - I explained that US may be helpful, but also
may not. She prefers to pursue US rather than needle aspiration/drain placement.
--- NOTE | 2023-11-15 14:16 | CON.CRS ---
Addendum entered and electronically signed by Juan Merida MD 11/15/23 14:40:
I saw and examined the patient.
The Floral Specialist's note was reviewed and I agree with the note.
Comment: Improved but not resolved LLQ pain. Exam with essentially no ttp. AFVSS, no leukocytosis. CT with question of new adjacent undrained collection vs hydrosalpinx. Will proceed with Trans vag US to better visualize the pelvic anatomy. If
hydrosalpinx is ruled out, recommend proceeding with IR drain
Original Note:
Medical History
-
Chief Complaint: abdominal pain
History of Present Illness:
Ms Hwang is a 47 yo female known to Dr. Stephens with history of recurrent complicated diverticulitis with most recent admission earlier this month (10/25-10/29) with drain placement at that time for abscess by interventional radiology. She has never
undergone a colonoscopy. Prior to this she was admitted in December of 2021, March of 2022 and admitted at a hospital in [place] earlier this month prior to presenting here. She had interim improvement in pain and was tolerating a diet at home
since d/c on 10/29. She does note that she has had persistent diarrhea since that flare. Yesterday, she noted worsening abdominal pain to the pelvis causing her to present for evaluation with associated nausea. She notes pain has improved since
presentation with relatively benign exam. Denies further nausea or vomiting. Diarrhea still present but no worse. IR Drain from prior admission with minimal light yellow output noted. She denies difficulty voiding.
Past Medical History
Past Medical History: Diverticulitis, Hypothyroidism and Psychiatric (anxiety/depression)
Past Surgical History:
Social History
Tobacco: Smoker (heavy)
Family History
Family History: Reviewed & Not Pertinent
Allergies / Home Medications
Allergy/AdvReac Type Severity Reaction Status Date / Time
No Known Allergies Allergy Verified 11/14/23 23:07
�Medication �Instructions �Recorded �Confirmed �Type
levothyroxine 175 mcg tablet 175 mcg PO DAILY Thyroid 12/15/21 11/14/23 History
alprazolam 1 mg tablet (Xanax) 1 mg PO TID PRN anxiety #60 tabs 12/24/21 11/14/23 Rx
simethicone 80 mg chewable tablet 160 mg PO BID 10/25/23 11/14/23 History
Review of Systems
-
History Source: Patient
All other systems: Negative unless noted
A 10 point review of systems was completed, and was negative except as per HPI.
Physical Exam
Vital Signs
Temp 98.0 F 11/15/23 10:10
Pulse 76 11/15/23 10:10
Resp Rate 16 11/15/23 10:10
Blood pressure 134/90 11/15/23 10:10
SaO2 96 11/15/23 10:17
11/14/23 11/15/23 11/16/23
06:59 06:59 06:59
Actual Weight 90 kg 89.499 kg
Body Mass Index (BMI) 35.5
Lab Results / Allergies
11/15/23 06:46
11/15/23 06:46
WBC 7.6 10^3/uL (4.8-10.8) 11/15/23 06:46
Hgb 12.0 g/dL (12.0-16.0) 11/15/23 06:46
Hct 36.2 % (37.0-47.0) L 11/15/23 06:46
Plt Count 387 10^3/uL (130-400) 11/15/23 06:46
Abs Immat Gran (auto) 0.0 10^3/uL (0-0.05) 11/15/23 06:46
Neutrophils % 51.9 % (42.2-75.2) 11/15/23 06:46
Allergy/AdvReac Type Severity Reaction Status Date / Time
No Known Allergies Allergy Verified 11/14/23 23:07
Physical Exam
General: Well Developed and Comfortable
HEENT: Moist Mucous Membranes
Respiratory: Non Labored Respirations
GI: Soft, Non Tender, Non Distended and Other (IR drain with serous output)
Skin: Warm and Dry
Neuro: Awake, Alert and AO x 3
Data Reviewed
-
CT Scan: Image Personally Visualized and interpreted, Report Reviewed by me, Discussed with Physician, Discussed with Nurse and Discussed with Patient
Labs: Labs Reviewed by me, Discussed with Physician, Discussed with Nurse and Discussed with Patient
Old Records: Reviewed
Assessment / Plan
-
47 yo female with recurrent diverticulitis with recent IR drain placement on 10/26 for abscess presenting with recurrence of pain. AFVSS. Labs without leukocytosis. CT imaging reviewed with resolution of prior abscess noted. There is a new fluid
collection noted in the LLQ 5.5x4.2x2.7cm in size now present. Inflamed diverticulum extending from sigmoid colon to bladder wall raising concern for development of colovesical fistula. Pain improved since presentation.
IR consult placed for evaluation and possible abscess drainage, patient refused study this am as she notes, she did not feel adequately prepared, will likely be agreeable tomorrow to retry. May be able to remove current drain +/- placement of new
drain. Very adamant that if another drain is needed, she would like to have the original drain removed.
--Ok for LRD tonight as tolerated then NPO after MN for IR study
--C/W IV ABX
--Will check UA with reflex to cx
--Will hopefully make it through this hospitalization without emergent surgery and continue plan for colonoscopy and interval surgery as an outpatient with Dr. Stephens
--Local drain care
--Analgesics/antiemetics
--Medical management as per primary team
[2023-11-15 20:22] LABS: Urine Albumin Negative (Neg - Trace); Urine Bilirubin Negative (Negative); Urine Character Clear (Clear); Urine Color Yellow; Urine Glucose Negative (Negative); Urine Ketone Negative (Negative); Urine Leukocyte 1+ (Negative); Urine Nitrite Negative (Negative); Urine Occult Blood Negative (Negative); Urine Specific Gravity 1.025 (<1.030); Urine Urobilinogen Negative (Neg - 1+)
[2023-11-15 20:31] LABS: Urine Bacteria Few (Negative); Urine Squamous Cell >30 /LPF (Few); Urine White Cell 26-30 /HPF (0-5)
[2023-11-15 20:32] LABS: Urine Red Blood Cell 0-2 /HPF (0-2)
[2023-11-15] MEDS: TYLENOL 1000 MG PO (23:32)
[2023-11-16] MEDS: ZOSYN 50 IV ×4 (02:19→20:18)
[2023-11-16] MEDS: DILAUDID 0.5 MG IV ×2 (02:28→08:29)
[2023-11-16 05:11] VITALS: BMI 35.6
[2023-11-16 07:15] VITALS: BP 120/83
[2023-11-16] MEDS: NSS 1000 IV (07:46)
[2023-11-16 07:57] LABS: Hematocrit 36.6 % (37.0-47.0); Hemoglobin 11.8 g/dL (12.0-16.0); Mean Corp Hgb Conc. 32.2 g/dL (33.0-37.0); Mean Corpuscular Hgb 29.6 pg (27.0-31.0); Mean Corpuscular Volume 91.7 fL (81.0-99.0); Mean Platelet Volume 11.2 fL (7.4-10.4); Platelet Count 348 10^3/uL (130-400); Red Blood Cell Count 3.99 10^6/uL (4.20-5.40); White Blood Cell Count 8.7 10^3/uL (4.8-10.8)
[2023-11-16] MEDS: ZOFRAN 4 MG IV (07:59)
[2023-11-16 08:40] LABS: Blood Urea Nitrogen 19 mg/dl (7-17); Calcium 9.1 mg/dl (8.4-10.2); Carbon Dioxide 26 mmol/L (22-30); Chloride 105 mmol/L (98-107); Estimated Creatinine Clearance 90 ml/min; Glucose 111 mg/dl (70-99); Potassium 4.5 mmol/L (3.5-5.1); Sodium 142 mmol/L (135-145); eGFR > 60.00
--- NOTE | 2023-11-16 09:26 | W.PN.GS2 ---
Today's Communication / Plan
-
IR for abscess drainage
Assessment / Plan
-
47 yo female with recurrent diverticulitis with recent IR drain placement on 10/26 for abscess presenting with recurrence of pain. CT imaging reviewed with resolution of prior abscess noted. There is a new fluid collection noted in the LLQ
5.5x4.2x2.7cm in size now present. Inflamed diverticulum extending from sigmoid colon to bladder wall raising concern for development of colovesical fistula.
AFVSS. Labs without leukocytosis.
Worsening pain overnight
UA with +leuks/cx pending
IR consult placed for evaluation and possible abscess drainage, patient refused study yesterday but more agreeable today. May be able to remove current drain +/- placement of new drain. Very adamant that if another drain is needed, she would like to
have the original drain removed.
--NPO for IR
--C/W IV ABX
--Local drain care
--Analgesics/antiemetics
--Medical management as per primary team
Will hopefully make it through this hospitalization without emergent surgery and continue plan for colonoscopy and interval surgery as an outpatient with Dr. Stephens
Subjective Data
-
Date of Service: November 16, 2023
Patient seen and examined at bedside. Reports increased pain overnight, taking zofran with dialudid as narcotics make her nauseated. No further diarrhea. No voiding complaints
Objective Data
-
Intake and Output
11/15/23 11/16/23 11/17/23
06:59 06:59 06:59
Intake Total 970 / 970
Balance 970 / 970
Intake:
Oral fluids 860 / 860
IV piggybacks 100 / 100
Amount instilled into Drain (
Total)
Left Lower Abdomen Cody-
Ybarra
Other:
Number of approximated SMALL 1
amounts of urine
Number of approximated MODERATE 1
amounts of urine
Number of approximated LARGE 1
amounts of urine
Vital Signs
Temp Pulse Resp BP Pulse Ox
98.1 F 74 16 120/83 96
11/16/23 07:15 11/16/23 07:15 11/16/23 07:15 11/16/23 07:15 11/16/23 07:15
Lab Results
11/16/23 05:04
11/16/23 05:04
Calcium 9.1 mg/dl (8.4-10.2) 11/16/23 05:04
Total Bilirubin 0.4 mg/dl (0.2-1.3) 11/14/23 23:15
AST 33 U/L (14-36) 11/14/23 23:15
ALT 24 U/L (0-35) 11/14/23 23:15
Alkaline Phosphatase 81 U/L (38-126) 11/14/23 23:15
Total Protein 6.5 g/dl (6.3-8.2) 11/14/23 23:15
Albumin 4.0 g/dl (3.5-5.0) 11/14/23 23:15
Physical Exam
-
NAD AAOx3
ABD: soft, ND, obese, mild TTP lower abdomen, no R/R/G
[2023-11-16] MEDS: TYLENOL 1000 MG PO (09:38)
--- NOTE | 2023-11-16 11:15 | CM ---
Addendum entered by Lila Pantoja RN 11/16/23 13:51:
[facility] office Fax number is: .
Original Note:
Reviewed the chart notes and spoke with the patient at the bedside. The patient resides with her significant other in a one story home with one step to enter. The patient is current with [facility] for DONY drain management. The patient has not been
to any SNFs in the past. The patient confirmed her pharmacy of choice is the [address] [facility]. CM continues to be available to patient/family and is monitoring medical plan for needs at discharge.
Plan: Discharge to home with resumption of [facility].
--- NOTE | 2023-11-16 12:57 | W.PN.HOSP.TC ---
Today's Communication/Plan
-
see bold
Assessment / Plan
Assessment / Plan
HPI: 47 yo female with recurrent diverticulitis with recent IR drain placement on 10/26 for abscess presenting with recurrence of pain. CT imaging reviewed with resolution of prior abscess noted. There is a new fluid collection noted in the LLQ
5.5x4.2x2.7cm in size now present. Inflamed diverticulum extending from sigmoid colon to bladder wall raising concern for development of colovesical fistula.
CT abd/pelvis:
1. Status post percutaneous drainage of a pericolonic diverticular abscess. No abscess is seen in the area of prior drainage catheter placement.
2. Fluid collection is seen within the left lower quadrant, with a somewhat tubular configuration, located anterior and medial to the previously placed drainage catheter, measuring 5.5 x 4.2 x 2.7 cm. No significant inflammatory change is seen
adjacent to this fluid. Differential diagnosis includes hydrosalpinx, less likely hydrosalpinx or undrained abscess.
3. Inflamed diverticulum extends inferiorly from the sigmoid colon and contacts the urinary bladder, best seen on coronal image 30. No air in the urinary bladder to suggest colovesicular fistula formation on the current study.
#Complicated diverticulitis with new fluid collection in left lower quadrant
Patient has current drain in place
Appreciate general surgery input, IR consulted for second drain placement
Continue IV Zosyn, pain meds
#Hypothyroidism
Continue levothyroxine
#Cigarette nicotine dependency
Encourage cessation
Generalized anxiety
Continue home Xanax as needed
#Obesity due to excess calories
Affects all aspects of care
DVT prophylaxis�SCDs, ambulate
Full code
Total time spent to see the patient on the floor, examine the patient, review data and lab results, discuss treatment plan with patient, nursing staff around 38 minutes.
Physical Exam
General: Obese, no acute distress
HEENT: Normocephalic, Atraumatic, EOMI, MMM
Respiratory: Clear to Auscultation bilaterally
Cardiac: Normal S1/S2, Regular Rate and Rhythm
GI: Soft, tender at the left lower quadrant and suprapubic area, abdominal drain in place
Extremities: No Clubbing, Cyanosis, or Edema
Neuro: Nonfocal/Grossly Intact
Psych: Calm, Cooperative
Derm: No Visible lesions
Anticipated Discharge: 24 - 48 hours
Subjective/Interval History
-
Date of Service: November 16, 2023
Patient continues to have left-sided and suprapubic pain. No fever, no vomiting.
Objective Data
-
Labs:
Laboratory Results
11/16/23
05:04
WBC 8.7
Hgb 11.8 L
Hct 36.6 L
Plt Count 348
Sodium 142
Potassium 4.5
Chloride 105
Carbon Dioxide 26
BUN 19 H
Creatinine 0.8
Glucose 111 H
Calcium 9.1
Vital Signs:
Vital Signs
Temp Pulse Resp BP Pulse Ox
98.1 F 74 16 120/83 96
11/16/23 07:15 11/16/23 07:15 11/16/23 07:15 11/16/23 07:15 11/16/23 07:15
I&O
11/15/23 11/16/23 11/17/23
06:59 06:59 06:59
Intake Total 970 / 970
Balance 970 / 970
--- NOTE | 2023-11-16 13:30 | PTCARENOTE ---
Pt continues to refuse IVF; she does allow her IV Zosyn, multiple attempts made to reattach IVF to no avail; Dr. Oxana Gaxiola Do notified; patient is NPO (yes oral meds, sips of clears, chips), small cups of water and apple juice at bedside and
educated patient to take small sips; will continue to monitor.
--- NOTE | 2023-11-16 15:07 | W.PN.UPDATE ---
Update Note
Progress Note Update
Discussed potential new drain placement with patient this morning. I recommended drain placement, as today's US did not show evidence of hydrosalpinx. She said she doesn't want to do today, wants to give antibiotics more time to work. I reiterated
that I don't believe antibiotics will work without drainage of presumed abscess, but she would like to hold off for now.
[2023-11-16 15:50] VITALS: BP 121/86
[2023-11-16] MEDS: NSS IV (19:00)
--- NOTE | 2023-11-16 20:44 | PTCARENOTE ---
pt 6 Hwang here for increasing abd pain with IR drain placed 2 wks ago for abscess was sent down today for US and was told she was to be NPO this afternoon for IR tomorrow for possible new drain.. She just old me she had some dinner about an hour
ago that her S/O brought in and keeps flip flopping if she is going to agree to procedure ( she states that she wasn't told but she was informed previous shift ) she def has some psych issues. she said now she won't eat but she has items in her room
that she is not willing to remove but they are off to the side. HP notified at this time continuing to educate and monitor. She mentions that she may decide tomorrow if she is willing to go through with the procedure.
[2023-11-16 23:42] VITALS: BP 152/93
[2023-11-17] MEDS: ZOSYN 50 IV ×4 (01:55→20:40)
[2023-11-17 05:53] VITALS: BMI 35.0
--- NOTE | 2023-11-17 06:14 | PTCARENOTE ---
Pt slept well during shift, she denies any further eating or drinking since we spoke last night approx @ 2100. Pt continues to be uncertain about having procedure done, would benefit from further communication from .
[2023-11-17] MEDS: ZOFRAN 4 MG IV (06:30)
[2023-11-17 06:35] LABS: Hematocrit 35.9 % (37.0-47.0); Hemoglobin 11.6 g/dL (12.0-16.0); Mean Corp Hgb Conc. 32.3 g/dL (33.0-37.0); Mean Corpuscular Hgb 29.2 pg (27.0-31.0); Mean Corpuscular Volume 90.4 fL (81.0-99.0); Mean Platelet Volume 10.8 fL (7.4-10.4); Platelet Count 334 10^3/uL (130-400); Red Blood Cell Count 3.97 10^6/uL (4.20-5.40); Red Cell Dist. Width 15.6 % (11.5-14.5); White Blood Cell Count 8.5 10^3/uL (4.8-10.8)
[2023-11-17 07:06] LABS: Blood Urea Nitrogen 14 mg/dl (7-17); Calcium 9.5 mg/dl (8.4-10.2); Carbon Dioxide 28 mmol/L (22-30); Chloride 105 mmol/L (98-107); Estimated Creatinine Clearance 90 ml/min; Glucose 109 mg/dl (70-99); Potassium 4.4 mmol/L (3.5-5.1); Sodium 143 mmol/L (135-145); eGFR > 60.00
[2023-11-17 07:12] VITALS: BP 137/81
--- NOTE | 2023-11-17 08:20 | W.PN.HOSP.TC ---
Today's Communication/Plan
-
NPO for IR guided drain placement
ID consult
appreciate GS consult and IR
Assessment / Plan
Assessment / Plan
HPI: 47 yo female with recurrent diverticulitis with recent IR drain placement on 10/26 for abscess presenting with recurrence of pain. CT imaging reviewed with resolution of prior abscess noted. There is a new fluid collection noted in the LLQ
5.5x4.2x2.7cm in size now present. Inflamed diverticulum extending from sigmoid colon to bladder wall raising concern for development of colovesical fistula.
CT abd/pelvis:
1. Status post percutaneous drainage of a pericolonic diverticular abscess. No abscess is seen in the area of prior drainage catheter placement.
2. Fluid collection is seen within the left lower quadrant, with a somewhat tubular configuration, located anterior and medial to the previously placed drainage catheter, measuring 5.5 x 4.2 x 2.7 cm. No significant inflammatory change is seen
adjacent to this fluid. Differential diagnosis includes hydrosalpinx, less likely hydrosalpinx or undrained abscess.
3. Inflamed diverticulum extends inferiorly from the sigmoid colon and contacts the urinary bladder, best seen on coronal image 30. No air in the urinary bladder to suggest colovesicular fistula formation on the current study.
#Complicated diverticulitis with new fluid collection in left lower quadrant
Patient has current drain in place
Appreciate general surgery input, IR consulted for second drain placement (she refused yesterday)
Continue IV Zosyn, pain meds
-ID consult
#Hypothyroidism
Continue levothyroxine
#Cigarette nicotine dependency
Encourage cessation
Generalized anxiety
Continue home Xanax as needed
#Obesity due to excess calories
Affects all aspects of care
DVT prophylaxis�SCDs, ambulate
Full code
Total time spent to see the patient on the floor, examine the patient, review data and lab results, discuss treatment plan with patient, nursing staff around 38 minutes.
Physical Exam
General: Obese, no acute distress
HEENT: Normocephalic, Atraumatic, EOMI, MMM
Respiratory: Clear to Auscultation bilaterally
Cardiac: Normal S1/S2, Regular Rate and Rhythm
GI: Soft, tender at the left lower quadrant and suprapubic area, abdominal drain in place
Extremities: No Clubbing, Cyanosis, or Edema
Neuro: Nonfocal/Grossly Intact
Psych: Calm, Cooperative
Derm: No Visible lesions
Anticipated Discharge: > 48 hours
Subjective/Interval History
-
Date of Service: November 17, 2023
awoken from sleep
lower abdominal pain, refusing pain meds
Objective Data
-
Labs:
Laboratory Results
11/17/23
05:49
WBC 8.5
Hgb 11.6 L
Hct 35.9 L
Plt Count 334
Sodium 143
Potassium 4.4
Chloride 105
Carbon Dioxide 28
BUN 14
Creatinine 0.8
Glucose 109 H
Calcium 9.5
Vital Signs:
Vital Signs
Temp Pulse Resp BP Pulse Ox
98.6 F 86 17 137/81 95
11/17/23 07:12 11/17/23 07:12 11/17/23 07:12 11/17/23 07:12 11/17/23 07:12
I&O
11/16/23 11/17/23 11/18/23
06:59 06:59 06:59
Intake Total 970 / 970 850 / 850
Balance 970 / 970 850 / 850
Review of Systems
-
History Source: Patient
All other systems: Reviewed and negative
Physical Exam
-
General: No Apparent Distress
HEENT: Normocephalic and Atraumatic
Respiratory: Negative Wheezes
Cardiac: Regular Rhythm and S1/S2
GI: Soft and Nontender
Genito-urinary: No Costovertebral Tender
Neuro: AO x 3
Hematologic / Lymphatic: No Lymphadenopathy
Psych: Calm
Data Reviewed
-
Diagnostic Radiology: Report Reviewed by me
Labs: Labs Reviewed by me
[2023-11-17] MEDS: DILAUDID 0.5 MG IV (09:52)
[2023-11-17] MEDS: NSS 1000 IV (11:54)
--- NOTE | 2023-11-17 12:01 | W.PN.CRS1 ---
Today's Communication / Plan
-
IR tomorrow
clears today, npo midnight
stop miralax
start lovenox
Assessment/Plan
-
47 yo female with recurrent diverticulitis with recent IR drain placement on 10/26 for abscess presenting with recurrence of pain. CT imaging reviewed with resolution of prior abscess noted. There is a new fluid collection noted in the LLQ
5.5x4.2x2.7cm in size now present. Inflamed diverticulum extending from sigmoid colon to bladder wall raising concern for development of colovesical fistula.
AFVSS. Labs without leukocytosis.
--Willing to have IR drain put in after long discussion. Dr. Farah can do tomorrow AM. Clears for today, NPO at midnight.
--C/W IV ABX
--Local drain care
--Analgesics/antiemetics
--Medical management as per primary team
--IVFs
--Lovenox for DVT prophylaxis
--D/C Miralax
Subjective Data
Subjective Data
Date of Service: November 17, 2023
The patient states she had some nausea this morning. She has pain off an on. Overall her pain is getting better. She still has bowel function.
Objective Data
-
Vital Signs
Temp Pulse Resp BP Pulse Ox
98.6 F 86 17 137/81 95
11/17/23 07:12 11/17/23 07:12 11/17/23 07:12 11/17/23 07:12 11/17/23 07:12
Intake & Output
11/16/23 11/17/23 11/18/23
06:59 06:59 06:59
Intake Total 970 / 970 850 / 850 10 / 10
Balance 970 / 970 850 / 850 10 / 10
Intake:
Oral fluids 860 / 860 480 / 480
IV fluids (Total) 160 / 160
IV piggybacks 100 / 100 200 / 200
Amount instilled into Drain (
Total)
Left Lower Abdomen Cody-
Ybarra
Other:
Number of approximated SMALL 1
amounts of urine
Number of approximated MODERATE 1 2
amounts of urine
Number of approximated LARGE 1
amounts of urine
Lab Results
11/17/23 05:49
11/17/23 05:49
Physical Exam
-
General: No Acute Distress and AOx3
Abdomen: Soft, Non Distended, Tender and Other (previous IR drain in place with green output in tube, nothing in bulb)
--- NOTE | 2023-11-17 12:49 | PTCARENOTE ---
Per batool Dumont to hold off on IVF infusion until pt becomes NPO at midnight. Care ongoing.
[2023-11-17 15:21] VITALS: BP 127/92
--- NOTE | 2023-11-17 16:38 | CON.ID ---
Consultation
-
Date/Time Consultation Requested: November 17, 2023 1602
Date/Time Consultation Performed: November 17, 2023 1640
Requesting Provider: Dr. Rosario Snow
Performing Provider: Dr. Dee Dinh
Reason for Consultation: Relapse diverticular abscess
Chief Complaint / Past History
Chief Complaint
Abdominal pain
History of Present Illness
47-year-old female with history of recurrent diverticulitis recently hospitalized October 24 - October 29 with severe diverticulitis of distal descending colon with pericolonic abscess tracking towards the left superior urinary bladder. She underwent
percutaneous drain placement October 26. Abscess culture grew Bacteroides. Patient was discharged on levofloxacin and metronidazole x 2 more weeks. She returned to the hospital 11/14 due to recurrence of abdominal pain. CAT scan showed resolution
of the previous abscess at the percutaneous drainage site. However there is 5.5 x 4.2 cm fluid collection within the left lower quadrant located anterior and medial to the previously placed catheter. Patient reports that she she was compliant with
the levofloxacin and metronidazole despite having diarrhea. She did complete the 2-week course. No fever or chills. Positive malaise. Her diarrhea is improving. She declined percutaneous drainage yesterday. She is agreeable for IR PERC drain
tomorrow.
Past History
Additional Past Medical History:
Hypothyroidism
Recurrent diverticulitis/abscess
Anxiety
BMI 37.5
Tobacco use disorder
C- section
Allergy History:
No Known Allergies Allergy (Verified 11/14/23 23:07)
Medications Reviewed: Yes
Current Antibiotics:
Zosyn d1
Social History
Tobacco: Smoker
Alcohol: None
Drug: None
Personal:
Family History
Family History: Not Pertinent
Review of Systems
Review of Systems
General: Change in Appetite; Negative Fever or Chills
HEENT: Negative Sinus Problems or Headache
Respiratory: Negative Dyspnea or Cough
Gasteroenterology: Negative Vomiting
Genital / Urological: Negative Dysuria or Flank Pain
Neurological: Negative Headache or Dizziness
Vital Signs
Temp Pulse Resp BP Pulse Ox
98.1 F 76 18 127/92 98
11/17/23 15:21 11/17/23 15:21 11/17/23 15:21 11/17/23 15:21 11/17/23 15:21
Physical Exam
Physical Exam
Constitutional: No Acute Distress
Eyes: No Conjunctival Hemorrhage and Sclera Anicteric
Cardiovascular: Regular Rate and S1/S2
Pulmonary: Clear
Gastrointestinal: Soft, Tender (left lower quadrant) and Other (Left DONY drain with clear fluid.)
Extremities: Negative Edema
Neurological: AO x 3
Lab / Diagnostic Study Results
11/17/23 05:49
11/17/23 05:49
Abs Immat Gran (auto) 0.0 10^3/uL (0-0.05) 11/15/23 06:46
Absolute Neuts (auto) 3.9 10^3/uL (1.4-6.5) 11/15/23 06:46
Absolute Lymphs (auto) 2.7 10^3/uL (1.2-3.4) 11/15/23 06:46
Absolute Monos (auto) 0.5 10^3/uL (0.1-0.6) 11/15/23 06:46
Absolute Basos (auto) 0.1 10^3/uL (0-0.2) 11/15/23 06:46
Total Counted 100 11/14/23 23:15
Immature Gran % 0.4 % (0-0.5) 11/15/23 06:46
Neutrophils % 51.9 % (42.2-75.2) 11/15/23 06:46
Lymphocytes % 35.8 % (20.5-51.1) 11/15/23 06:46
Monocytes % 6.2 % (1.7-9.3) 11/15/23 06:46
Eosinophils % 5.0 % (0-6) 11/15/23 06:46
Basophils % 0.7 % (0-2) 11/15/23 06:46
Abs Neuts (Manual) 6.0 10^3/uL (1.4-6.5) 11/14/23 23:15
Segmented Neutrophils 64 % (42-75) 11/14/23 23:15
Band Neutrophils 2 % (0-3) 11/14/23 23:15
Lymphocytes (Manual) 14 % (20-51) L 11/14/23 23:15
Eosinophils (Manual) 3 % (0-6) 11/14/23 23:15
Lactic Acid 0.8 mmol/L (0.7-2.0) 11/14/23 23:15
Ur Squamous Epith Cells >30 /LPF (Few) 11/15/23 20:14
Microbiology Results
Micro:
11/15/23 20:14 Urine Culture - Final
Urine NO GROWTH
11/15/23 CT a/p: 1. Status post percutaneous drainage of a pericolonic diverticular abscess. No abscess is seen in the area of prior drainage catheter placement.
2. Fluid collection is seen within the left lower quadrant, with a somewhat tubular configuration, located anterior and medial to the previously placed drainage catheter, measuring 5.5 x 4.2 x 2.7 cm. No significant inflammatory change is seen
adjacent to this fluid. Differential diagnosis includes hydrosalpinx, less likely hydrosalpinx or undrained abscess. 3. Inflamed diverticulum extends inferiorly from the sigmoid colon and contacts the urinary bladder, best seen on coronal image 30.
No air in the urinary bladder to suggest colovesicular fistula formation on the current study.
11/16/23 Pelvic/transvag US: 5.7 cm irregular shaped loculated fluid collection in the left side of the pelvis located adjacent to bowel loops anterolateral to the uterine fundus.
Assessment / Plan
# Progression of diverticular abscess - previously undrained due to small size
# Previous abscess resolved.
. 10/26 s/p IR abscess drainage placement. Aerobic cx neg (on Augmentin); anaerobic culture Bacteroides s/p 2 weeks levo/metronidazole with resolution of abscess
# Recurrent diverticulitis
- For IR drain placement tomorrow.
- send aerobic and anaerobic cx
-continue Zosyn for now.
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
Hypothyroidism
Diverticulitis
Anxiety
BMI 35
Tobacco use disorder
C- section
--- NOTE | 2023-11-17 17:41 | PTCARENOTE ---
Pt refusing SCDs and lovenox, VTE prevention education provided. Pt continues to refuse. Dr Celestin made aware. Care remains ongoing.
[2023-11-17 23:08] VITALS: BP 114/82
[2023-11-18] MEDS: NSS IV
[2023-11-18] MEDS: ZOSYN 50 IV ×4 (01:53→19:33)
[2023-11-18] MEDS: ZOFRAN 4 MG IV (05:57)
[2023-11-18 06:00] VITALS: BMI 34.6
[2023-11-18] MEDS: TYLENOL PO (06:02)
[2023-11-18] MEDS: DILAUDID 0.5 MG IV (06:03)
[2023-11-18 07:05] VITALS: BP 134/80
[2023-11-18 07:21] LABS: % Basophils 0.6 % (0-2); % Eosinophils 6.5 % (0-6); % Immature Granulocytes 0.6 % (0-0.5); % Lymphocytes 23.2 % (20.5-51.1); % Monocytes 7.4 % (1.7-9.3); % Neutrophils 61.7 % (42.2-75.2); Absolute Eosinophils 0.5 10^3/uL (0-0.7); Absolute Lymphocytes 1.7 10^3/uL (1.2-3.4); Absolute Monocytes 0.5 10^3/uL (0.1-0.6); Absolute Neutrophils 4.4 10^3/uL (1.4-6.5); Hematocrit 37.3 % (37.0-47.0); Hemoglobin 12.1 g/dL (12.0-16.0); Mean Corp Hgb Conc. 32.4 g/dL (33.0-37.0); Mean Corpuscular Hgb 29.9 pg (27.0-31.0); Mean Corpuscular Volume 92.1 fL (81.0-99.0); Nucleated Red Blood Cells % 0 %; Platelet Count 341 10^3/uL (130-400); Red Blood Cell Count 4.05 10^6/uL (4.20-5.40); Red Cell Dist. Width 15.8 % (11.5-14.5); White Blood Cell Count 7.2 10^3/uL (4.8-10.8)
[2023-11-18 07:29] LABS: Blood Urea Nitrogen 12 mg/dl (7-17); Calcium 9.2 mg/dl (8.4-10.2); Carbon Dioxide 30 mmol/L (22-30); Chloride 105 mmol/L (98-107); Estimated Creatinine Clearance 89 ml/min; Glucose 102 mg/dl (70-99); Potassium 4.4 mmol/L (3.5-5.1); Sodium 145 mmol/L (135-145); eGFR > 60.00
--- NOTE | 2023-11-18 09:14 | W.PN.HOSP.TC ---
Today's Communication/Plan
-
NPO for IR guided drain placement today
IV Zosyn
Assessment / Plan
Assessment / Plan
HPI: 47 yo female with recurrent diverticulitis with recent IR drain placement on 10/26 for abscess presenting with recurrence of pain. CT imaging reviewed with resolution of prior abscess noted. There is a new fluid collection noted in the LLQ
5.5x4.2x2.7cm in size now present. Inflamed diverticulum extending from sigmoid colon to bladder wall raising concern for development of colovesical fistula.
CT abd/pelvis:
1. Status post percutaneous drainage of a pericolonic diverticular abscess. No abscess is seen in the area of prior drainage catheter placement.
2. Fluid collection is seen within the left lower quadrant, with a somewhat tubular configuration, located anterior and medial to the previously placed drainage catheter, measuring 5.5 x 4.2 x 2.7 cm. No significant inflammatory change is seen
adjacent to this fluid. Differential diagnosis includes hydrosalpinx, less likely hydrosalpinx or undrained abscess.
3. Inflamed diverticulum extends inferiorly from the sigmoid colon and contacts the urinary bladder, best seen on coronal image 30. No air in the urinary bladder to suggest colovesicular fistula formation on the current study.
#Complicated diverticulitis with new fluid collection in left lower quadrant
Patient has current drain in place
Appreciate surgery
- IR consulted for second drain placement, to take place today
Continue IV Zosyn
-pain control
-ID consult appreciated
#Hypothyroidism
Continue levothyroxine
#Cigarette nicotine dependency
Encourage cessation
Generalized anxiety
Continue home Xanax as needed
#Obesity due to excess calories
Affects all aspects of care
DVT prophylaxis�SCDs, ambulate
Full code
Total time spent to see the patient on the floor, examine the patient, review data and lab results, discuss treatment plan with patient, nursing staff around 38 minutes.
Physical Exam
General: Obese, no acute distress
HEENT: Normocephalic, Atraumatic, EOMI, MMM
Respiratory: Clear to Auscultation bilaterally
Cardiac: Normal S1/S2, Regular Rate and Rhythm
GI: Soft, tender at the left lower quadrant and suprapubic area, abdominal drain in place
Extremities: No Clubbing, Cyanosis, or Edema
Neuro: Nonfocal/Grossly Intact
Psych: Calm, Cooperative
Derm: No Visible lesions
Anticipated Discharge: 24 - 48 hours
Subjective/Interval History
-
Date of Service: November 18, 2023
took dilaudid earlier for abdominal pain
willing to undergo procedure today
Objective Data
-
Labs:
Laboratory Results
11/18/23
05:34
WBC 7.2
Hgb 12.1
Hct 37.3
Plt Count 341
Sodium 145
Potassium 4.4
Chloride 105
Carbon Dioxide 30
BUN 12
Creatinine 0.8
Glucose 102 H
Calcium 9.2
Vital Signs:
Vital Signs
Temp Pulse Resp BP Pulse Ox
98.1 F 78 18 134/80 98
11/18/23 07:05 11/18/23 07:05 11/18/23 07:05 11/18/23 07:05 11/18/23 07:05
I&O
11/17/23 11/18/23 11/19/23
06:59 06:59 06:59
Intake Total 850 / 850 2390 / 2390
Output Total
Balance 850 / 850 2380 / 2380
Review of Systems
-
History Source: Patient
All other systems: Reviewed and negative
Physical Exam
-
General: No Apparent Distress
HEENT: Normocephalic and Atraumatic
Respiratory: Negative Wheezes
Cardiac: Regular Rhythm and S1/S2
GI: Soft and Nontender
Genito-urinary: No Costovertebral Tender
Neuro: AO x 3
Hematologic / Lymphatic: No Lymphadenopathy
Psych: Calm
Data Reviewed
-
Diagnostic Radiology: Report Reviewed by me
Labs: Labs Reviewed by me
--- NOTE | 2023-11-18 09:48 | W.PN.CRS1 ---
Today's Communication / Plan
-
as below
Assessment/Plan
-
47-year-old female with PMH of recurrent diverticulitis, hypothyroidism, severe anxiety with recent episode of diverticulitis with abscess requiring IR drain on 10/26; presents with recurrent pain, CT showing new abscess versus hydrosalpinx and
previously placed IR drain in a more lateral position, transvaginal US confirms likely abscess
No overnight events, amenable for IR drainage
AFVSS
WBC 7.2 from 8.5
�Plan for IR drain study today with likely removal of current drain and placement of new drain
� Keep n.p.o.; okay for clears afterward; okay for p.o. meds
�Continue IV Zosyn; appreciate ID; f/u culture; will send C. difficile for liquidy stools
� Continue DVT PPx with Lovenox
� Hold off on any bowel regiment
� Appreciate hospitalist
Subjective Data
Subjective Data
Date of Service: November 18, 2023
No overnight events.
Pain controlled.
Denies nausea/vomiting. Currently n.p.o. for procedure
+flatus +BMs (loose/liquid) +voiding
Pt is OOB.
Objective Data
-
Vital Signs
Temp Pulse Resp BP Pulse Ox
98.1 F 78 18 134/80 98
11/18/23 07:05 11/18/23 07:05 11/18/23 07:05 11/18/23 07:05 11/18/23 07:05
Intake & Output
11/17/23 11/18/23 11/19/23
06:59 06:59 06:59
Intake Total 850 / 850 2390 / 2390
Output Total
Balance 850 / 850 2380 / 2380
Intake:
Oral fluids 480 / 480 1620 / 1620
IV fluids (Total) 160 / 160 560 / 560
IV piggybacks 200 / 200 200 / 200
Amount instilled into Drain (
Total)
Left Lower Abdomen Cody-
Ybarra
Output:
Drain Output (Total)
Left Lower Abdomen Cody
Ybarra
Other:
Number of approximated MODERATE 2 2
amounts of urine
Lab Results
11/18/23 05:34
11/18/23 05:34
Physical Exam
-
General: No Acute Distress and AOx3
HEENT: Grossly Normal
Abdomen: Soft, Non Distended, Tender (Mildly tender in the LLQ/suprapubic region, improved overall; no rebound or guarding) and Other (LLQ DONY-10 mL serous)
Skin: Warm and Dry
--- NOTE | 2023-11-18 10:05 | W.PN.ID1 ---
Date of Service
Date of Service: November 18, 2023
Today's Communication
Perc drain.
Continue Zosyn.
Assessment / Plan
# Progression of diverticular abscess - previously undrained due to small size
# Previous abscess resolved.
. 10/26 s/p IR abscess drainage placement. Aerobic cx neg (on Augmentin); anaerobic culture Bacteroides s/p 2 weeks levo/metronidazole with resolution of abscess
# Recurrent diverticulitis
- For IR drain placement today.
- send aerobic and anaerobic cx
-continue Zosyn for now.
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
Hypothyroidism
Diverticulitis
Anxiety
BMI 35
Tobacco use disorder
C- section
Chief Complaint
-: Other (Diverticular abscess)
Subjective / Review of Systems
Diarrhea resolved. Abd pain better.
Vital Signs / Physical Exam
Vital Signs
Vital Signs
Temp Pulse Resp BP Pulse Ox
98.1 F 78 18 134/80 98
11/18/23 07:05 11/18/23 07:05 11/18/23 07:05 11/18/23 07:05 11/18/23 07:05
Physical Exam
Constitutional: No Acute Distress and Comfortable
Gastrointestinal: Soft and Tender (mild left lower abdomen)
Extremities: Negative Edema
Neurological: AO x 3
Objective Data
Lab Data
Lab Results
11/18/23 05:34
11/18/23 05:34
Estimated Creat Clear 89 ml/min 11/18/23 05:34
Lactic Acid 0.8 mmol/L (0.7-2.0) 11/14/23 23:15
Total Bilirubin 0.4 mg/dl (0.2-1.3) 11/14/23 23:15
AST 33 U/L (14-36) 11/14/23 23:15
ALT 24 U/L (0-35) 11/14/23 23:15
Alkaline Phosphatase 81 U/L (38-126) 11/14/23 23:15
Most recent labs reviewed.
Micro Results:
11/15/23 20:14 Urine Culture - Final
Urine NO GROWTH
11/15/23 CT a/p: 1. Status post percutaneous drainage of a pericolonic diverticular abscess. No abscess is seen in the area of prior drainage catheter placement.
2. Fluid collection is seen within the left lower quadrant, with a somewhat tubular configuration, located anterior and medial to the previously placed drainage catheter, measuring 5.5 x 4.2 x 2.7 cm. No significant inflammatory change is seen
adjacent to this fluid. Differential diagnosis includes hydrosalpinx, less likely hydrosalpinx or undrained abscess. 3. Inflamed diverticulum extends inferiorly from the sigmoid colon and contacts the urinary bladder, best seen on coronal image 30.
No air in the urinary bladder to suggest colovesicular fistula formation on the current study.
11/16/23 Pelvic/transvag US: 5.7 cm irregular shaped loculated fluid collection in the left side of the pelvis located adjacent to bowel loops anterolateral to the uterine fundus.
[2023-11-18] MEDS: NSS 1000 IV (11:07)
[2023-11-18] MEDS: XANAX 1 MG PO (14:05)
--- NOTE | 2023-11-18 14:36 | PTCARENOTE ---
Pt with c/o chest pain/ tightness shortly after being given PRN xanax and informed that IR was ready for her to come down. Pt stated multiple times ' its my anxiety' when questioned by RN pt stated ' my chest feels tight'. IR and Dr Snow informed.
VS and EKG obtained. Pt hypertensive, VS otherwise stable. EKG showed NSR, reviewed by Edy and RN given OK to proceed by Dr Snow. IR contacted and ok to receive pt. Care ongoing at this time.
[2023-11-18 14:37] VITALS: BP 158/98
--- NOTE | 2023-11-18 14:40 | CM ---
Case management following for discharge planning
Chart reviewed. Met with pt at bedside
Pt for IR drain study today with removal of current drain and placement of new drain
Remains on IV antibiotics; ID following
Sergio to follow when d/c'ed
CM will continue to be available for d/c needs
Plan - anticipate home with Sergio when medically stable
[2023-11-18 15:10] VITALS: BP 149/96; BP_SYST 80
--- NOTE | 2023-11-18 16:29 | PN.IRAD.UPD ---
Update Note - IRAD
- -
Cleaned left sided Abscess drain with chloraprep and removed. Site dressed with gauze and a primapore.
Abdias Canchola RT(R)()
[2023-11-18 16:35] VITALS: BP 142/97
--- NOTE | 2023-11-18 17:14 | PTCARENOTE ---
Pt returned from IR via stretcher, ambulated into room with standby assistance, gait steady. LLQ bandaid and 2x2 with tegederm noted and C/D/I. CLD resumed per colorectal sx, ok per Gaye ASHLEY RN. Care ongoing at this time.
[2023-11-18 17:22] VITALS: BP 138/86
[2023-11-18] MEDS: TYLENOL 1000 MG PO (21:17)
[2023-11-18] MEDS: TUMS EX (EXTRA STRENGTH) CHEWABLE 1 TABLET PO (21:44)
[2023-11-18 22:52] VITALS: BP 113/79
[2023-11-19] MEDS: ZOSYN 50 IV ×2 (02:11→08:20)
[2023-11-19] MEDS: NSS IV (02:14)
[2023-11-19 06:35] LABS: Hematocrit 36.7 % (37.0-47.0); Mean Corp Hgb Conc. 32.7 g/dL (33.0-37.0); Mean Corpuscular Hgb 29.9 pg (27.0-31.0); Mean Corpuscular Volume 91.5 fL (81.0-99.0); Mean Platelet Volume 10.8 fL (7.4-10.4); Platelet Count 329 10^3/uL (130-400); Red Blood Cell Count 4.01 10^6/uL (4.20-5.40); Red Cell Dist. Width 15.4 % (11.5-14.5); White Blood Cell Count 7.4 10^3/uL (4.8-10.8)
[2023-11-19 06:57] VITALS: BP 129/84
[2023-11-19 06:57] LABS: Blood Urea Nitrogen 13 mg/dl (7-17); Calcium 9.4 mg/dl (8.4-10.2); Carbon Dioxide 27 mmol/L (22-30); Chloride 108 mmol/L (98-107); Estimated Creatinine Clearance 89 ml/min; Glucose 100 mg/dl (70-99); Potassium 4.4 mmol/L (3.5-5.1); Sodium 141 mmol/L (135-145); eGFR > 60.00
--- NOTE | 2023-11-19 08:51 | W.PN.CRS1 ---
Today's Communication / Plan
-
as below
Assessment/Plan
-
47-year-old female with PMH of recurrent diverticulitis, hypothyroidism, severe anxiety with recent episode of diverticulitis with abscess requiring IR drain on 10/26; presents with recurrent pain, CT showing new abscess versus hydrosalpinx and
previously placed IR drain in a more lateral position, transvaginal US confirms likely abscess
S/p IR drain removal and aspiration of fluid cllxn, 22mL of slightly cloudy yellow fluid, sent for cx
AFVSS
WBC 7.4 from 7.2
�Advance to low residue
�Continue IV Zosyn; appreciate ID; f/u culture; C. difficile negative
� Continue DVT PPx with Lovenox
� Pain control with Tylenol, oxycodone, Dilaudid as needed
� Appreciate hospitalist
Dispo�okay for discharge from colorectal standpoint once medically clear and tolerating diet; follow-up with Dr. Stephens in 1 to 2 weeks
Subjective Data
Subjective Data
Date of Service: November 19, 2023
No overnight events.
Pain controlled.
Denies nausea/vomiting. Tolerating clears
+flatus +BMs (still with a few liquid stools) +voiding
Pt is OOB.
Objective Data
-
Vital Signs
Temp Pulse Resp BP Pulse Ox
97.8 F 75 16 129/84 96
11/19/23 06:57 11/19/23 06:57 11/19/23 06:57 11/19/23 06:57 11/19/23 06:57
Intake & Output
11/18/23 11/19/23 11/20/23
06:59 06:59 06:59
Intake Total 2390 / 2390 740 / 740
Output Total
Balance 2380 / 2380 740 / 740
Intake:
Oral fluids 1620 / 1620 480 / 480
IV fluids (Total) 560 / 560 50 / 50
nss 50 / 50
IV piggybacks 200 / 200 200 / 200
Amount instilled into Drain (
Total)
Left Lower Abdomen Cody-
Ybarra
Output:
Drain Output (Total)
Left Lower Abdomen Cody-
Ybarra
Other:
Number of approximated MODERATE 2 2
amounts of urine
Lab Results
11/19/23 05:44
11/19/23 05:44
Physical Exam
-
General: No Acute Distress and AOx3
HEENT: Grossly Normal
Abdomen: Soft, Non Distended, Tender (Appropriately tender near IR aspiration site), No Guarding and No Rebound
Skin: Warm and Dry
Wound: No Signs of Infection and No Skin Erythema
--- NOTE | 2023-11-19 09:23 | W.PN.HOSP.TC ---
Today's Communication/Plan
-
IV Zosyn
awaiting culture
Assessment / Plan
Assessment / Plan
HPI: 47 yo female with recurrent diverticulitis with recent IR drain placement on 10/26 for abscess presenting with recurrence of pain. CT imaging reviewed with resolution of prior abscess noted. There is a new fluid collection noted in the LLQ
5.5x4.2x2.7cm in size now present. Inflamed diverticulum extending from sigmoid colon to bladder wall raising concern for development of colovesical fistula.
CT abd/pelvis:
1. Status post percutaneous drainage of a pericolonic diverticular abscess. No abscess is seen in the area of prior drainage catheter placement.
2. Fluid collection is seen within the left lower quadrant, with a somewhat tubular configuration, located anterior and medial to the previously placed drainage catheter, measuring 5.5 x 4.2 x 2.7 cm. No significant inflammatory change is seen
adjacent to this fluid. Differential diagnosis includes hydrosalpinx, less likely hydrosalpinx or undrained abscess.
3. Inflamed diverticulum extends inferiorly from the sigmoid colon and contacts the urinary bladder, best seen on coronal image 30. No air in the urinary bladder to suggest colovesicular fistula formation on the current study.
IR Guided Aspiration 11/18/23
IM[address]ION:
1. CT-guided aspiration of left lower quadrant fluid collection as described with evacuation of 22 mL of thin slightly cloudy yellow fluid, samples sent for analysis.
2. Removal of previously placed left lower quadrant percutaneous drainage catheter.
#Complicated diverticulitis with new fluid collection in left lower quadrant
-appreciate CRS
-appreciate IR, fluid drained on 11/18/23
-awaiting culture
-Continue IV Zosyn
-pain control
-ID consult appreciated
-diet advanced today
#Hypothyroidism
Continue levothyroxine
#Cigarette nicotine dependency
Encourage cessation
Generalized anxiety
Continue home Xanax as needed
#Obesity due to excess calories
Affects all aspects of care
DVT prophylaxis� lovenox subQ
Full code
Total time spent to see the patient on the floor, examine the patient, review data and lab results, discuss treatment plan with patient, nursing staff around 38 minutes.
Physical Exam
General: Obese, no acute distress
HEENT: Normocephalic, Atraumatic, EOMI, MMM
Respiratory: Clear to Auscultation bilaterally
Cardiac: Normal S1/S2, Regular Rate and Rhythm
GI: Soft, tender at the left lower quadrant and suprapubic area, abdominal drain in place
Extremities: No Clubbing, Cyanosis, or Edema
Neuro: Nonfocal/Grossly Intact
Psych: Calm, Cooperative
Derm: No Visible lesions
Anticipated Discharge: 24 - 48 hours
Subjective/Interval History
-
Date of Service: November 19, 2023
Objective Data
-
Labs:
Laboratory Results
11/19/23
05:44
WBC 7.4
Hgb 12.0
Hct 36.7 L
Plt Count 329
Sodium 141
Potassium 4.4
Chloride 108 H
Carbon Dioxide 27
BUN 13
Creatinine 0.8
Glucose 100 H
Calcium 9.4
Vital Signs:
Vital Signs
Temp Pulse Resp BP Pulse Ox
97.8 F 75 16 129/84 96
11/19/23 06:57 11/19/23 06:57 11/19/23 06:57 11/19/23 06:57 11/19/23 06:57
I&O
11/18/23 11/19/23 11/20/23
06:59 06:59 06:59
Intake Total 2390 / 2390 740 / 740
Output Total
Balance 2380 / 2380 740 / 740
[2023-11-19] MEDS: TYLENOL 1000 MG PO (12:56)
--- NOTE | 2023-11-19 13:18 | VATNOTE ---
Called by PCN to evaluate IV site, leaking during assessment, removed. Attempted to restart IV at this time. Pt declining IV start stating 'I don't need it, they're going to send me home on a different antibiotic anyway.' Attempted to educate
patient about the importance of getting her IV antibiotic until they know what antibiotic she will go home with. Pt continues to decline IV restart. PCN made aware.
--- NOTE | 2023-11-19 13:25 | PTCARENOTE ---
Pt's IV site leaking. Pt is currently refusing to have another IV line restarted. Pt educated on the importance of Zosyn she is receiving IV. Pt said she doesn't want any more iv antibiotics and is asking to speak with her Doctor again. Text placed
to Hospitalist assigned to the Patient.
[2023-11-19 14:59] VITALS: BP 134/93
--- NOTE | 2023-11-19 15:29 | CM ---
Addendum entered by Gardenia Prajapati 11/19/23 16:23:
Plan - anticipate home [facility] when medically stable
f - [phone]
Original Note:
Case management following for discharge planning
IR yesterday for drain - cx sent - pending
Remains on IV antibiotics -
ID following
[facility] to follow when d/c'ed
Plan - anticipate home [facility] when medically stable
--- NOTE | 2023-11-19 15:59 | W.DS.TRANS ---
DC Summary - Director Print
-
Discharge Instructions:
Discharge Diagnosis/Procedures Abdominal fluid collection/abscess status post
drainage
Diet Regular
Activity As tolerated
Driving Restrictions As prior to admission
Bathing Restrictions None
Instructions:
Stand-Alone Forms:
Changes to Home Medications: Yes
Discharge Medications:
DC Medications w/original date entered in [employer]
levothyroxine 175 mcg tablet 175 mcg PO DAILY Thyroid 12/15/21
alprazolam 1 mg tablet (Xanax) 1 mg PO TID PRN anxiety #60 tabs 12/24/21
simethicone 80 mg chewable tablet 160 mg PO BID Gastrointestinal Issue 10/25/23
Lactobac no.2-Bifidobac no.1-S. thermo 112.5 billion cell capsule (Visbiome) 1 cap PO DAILY #20 caps 11/19/23
moxifloxacin 400 mg tablet 400 mg PO DAILY 10 days #10 tabs 11/19/23
oxycodone 5 mg tablet 5 mg PO Q6HPRN PRN moderate pain #5 tabs 11/19/23
Home Medication Changes
Moxifloxacin x 10 days
oxy PRN x 5 pills
Visbiome daily
Pending Results: Yes
Additional Pending Results:
final fluid cultures
--- NOTE | 2023-11-19 16:12 | W.DCSUMMARY ---
Discharge Summary
Discharge Data
Date of Admission: 11/15/23
Date of Discharge: 11/19/23
-
Pending Results: No
Hospital Course
Discharging Physician : Dr. Rosario Snow
Disposition : Home
Primary care physician : Dr. Shaji Adler
Principal Discharge diagnosis : Abdominal fluid collection/abscess status post drainage
Hospital Course :
Ms. Alyssa Hwang is a 47 yo woman with history diverticulitis with recent IR drain placement 10/26 for abscess presents with recurrence of pain. CT imaging reviewed with resolution of prior abscess noted. There is a new fluid collection noted in
the LLQ 5.5x4.2x2.7cm in size now present. She was admitted to medicine with CRS and ID consulting. She was maintained on IV Zosyn. Transvaginal ultrasound confirmed likely abscess. She underwent IR, CT-guided drainage with 22mL slightly cloudy
yellow fluid drained, sent for culture. Per ID recs, she is discharged on Moxifloxacin 400mg PO QD. Final culture pending at this time.
She will follow up with Dr. Stephens in 1-2 weeks.
Time spent on discharge was 31 minutes.
Important imaging findings :
CT abd/pelvis:
1. Status post percutaneous drainage of a pericolonic diverticular abscess. No abscess is seen in the area of prior drainage catheter placement.
2. Fluid collection is seen within the left lower quadrant, with a somewhat tubular configuration, located anterior and medial to the previously placed drainage catheter, measuring 5.5 x 4.2 x 2.7 cm. No significant inflammatory change is seen
adjacent to this fluid. Differential diagnosis includes hydrosalpinx, less likely hydrosalpinx or undrained abscess.
3. Inflamed diverticulum extends inferiorly from the sigmoid colon and contacts the urinary bladder, best seen on coronal image 30. No air in the urinary bladder to suggest colovesicular fistula formation on the current study.
IR Guided Aspiration 11/18/23
IMPRESSION:
1. CT-guided aspiration of left lower quadrant fluid collection as described with evacuation of 22 mL of thin slightly cloudy yellow fluid, samples sent for analysis.
2. Removal of previously placed left lower quadrant percutaneous drainage catheter.
Procedure findings :
Discharge Plan
-
Patient Disposition: Home (Routine Discharge)
Discharge Diagnosis/Procedures: Abdominal fluid collection/abscess status post drainage
Diet: Regular
Activity: As tolerated
Driving Restrictions: As prior to admission
Bathing Restrictions: None
Referrals:
Jayro Stephens MD [Active] - in one to two weeks
Shaji dAler MD [Family Provider] - in less than 1 week
Additional Discharge Medication Instructions: You are prescribed Moxifloxacin 400mg daily x 10 days for infection
Take probiotics with antibiotic
Prescriptions:
New
oxycodone 5 mg Tablet
5 mg PO Q6HPRN PRN (Reason: moderate pain) Qty: 5 0RF
moxifloxacin 400 mg tablet
400 mg PO DAILY 10 Days Qty: 10 0RF
Visbiome 112.5 billion cell capsule
1 cap PO DAILY Qty: 20 0RF
Continued
levothyroxine 175 mcg tablet
175 mcg PO DAILY
alprazolam [Xanax] 1 mg tablet
1 mg PO TID PRN (Reason: anxiety) Qty: 60 0RF
simethicone 80 mg Tablet,Chewable
160 mg PO BID
Discharge Orders:
Discharge Patient (As Directed); Ordered 11/19/23
Ordered By: Rosario Snow
Discharge Date and Time
Print Language: LEBANESE
--- NOTE | 2023-11-19 16:48 | W.PN.ID1 ---
Date of Service
Date of Service: November 19, 2023
Today's Communication
-Transition Zosyn to moxifloxacin 400mg po qd x 10 more days.
Assessment / Plan
# Progression of diverticular abscess - previously undrained due to small size
# Previous abscess resolved.
. 10/26 s/p IR abscess drainage placement. Aerobic cx neg (on Augmentin); anaerobic culture Bacteroides s/p 2 weeks levo/metronidazole with resolution of abscess
# Recurrent diverticulitis
- 11/17 IR aspirated 22cc cloudy fluid
- aerobic no growth to date. anaerobic cx pending.
-Transition Zosyn to moxifloxacin 400mg po qd x 10 more days.
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
Hypothyroidism
Diverticulitis
Anxiety
BMI 35
Tobacco use disorder
C- section
Chief Complaint
-: Other (Diverticular abscess)
Subjective / Review of Systems
Abd pain better.
Vital Signs / Physical Exam
Vital Signs
Vital Signs
Temp Pulse Resp BP Pulse Ox
98.7 F 84 16 134/93 98
11/19/23 14:59 11/19/23 14:59 11/19/23 14:59 11/19/23 14:59 11/19/23 14:59
Physical Exam
Constitutional: No Acute Distress and Comfortable
Pulmonary: Clear
Gastrointestinal: Soft and Tender (minimal LLQ)
Neurological: AO x 3
Objective Data
Lab Data
Lab Results
11/19/23 05:44
11/19/23 05:44
Estimated Creat Clear 89 ml/min 11/19/23 05:44
Lactic Acid 0.8 mmol/L (0.7-2.0) 11/14/23 23:15
Total Bilirubin 0.4 mg/dl (0.2-1.3) 11/14/23 23:15
AST 33 U/L (14-36) 11/14/23 23:15
ALT 24 U/L (0-35) 11/14/23 23:15
Alkaline Phosphatase 81 U/L (38-126) 11/14/23 23:15
Most recent labs reviewed.
Micro Results:
11/18/23 16:10 Anaerobic Culture - Preliminary
Abscess Culture pending. Anaerobic cultures are examined after 3
days incubation. Additional information to follow.
11/15/23 16:10 Wound Culture - Preliminary
Abscess No growth
Gram Stain - Preliminary
11/18/23 11:40 C. difficile GDH Antigen & Toxins - Final
Feces/Stool Negative for toxigenic C.difficile
11/15/23 20:14 Urine Culture - Final
Urine NO GROWTH
11/15/23 CT a/p: 1. Status post percutaneous drainage of a pericolonic diverticular abscess. No abscess is seen in the area of prior drainage catheter placement.
2. Fluid collection is seen within the left lower quadrant, with a somewhat tubular configuration, located anterior and medial to the previously placed drainage catheter, measuring 5.5 x 4.2 x 2.7 cm. No significant inflammatory change is seen
adjacent to this fluid. Differential diagnosis includes hydrosalpinx, less likely hydrosalpinx or undrained abscess. 3. Inflamed diverticulum extends inferiorly from the sigmoid colon and contacts the urinary bladder, best seen on coronal image 30.
No air in the urinary bladder to suggest colovesicular fistula formation on the current study.
11/16/23 Pelvic/transvag US: 5.7 cm irregular shaped loculated fluid collection in the left side of the pelvis located adjacent to bowel loops anterolateral to the uterine fundus.
Care Review
Plan reviewed with: Physician (Dr. Snow)
== END 2023-11-19 18:11 | disposition home health service (06) | DRG 392 ==
LOC: 2 SOUTH 02:46
PROVIDERS: Clinical Nurse Specialist Family Health; Physician Assistant; Radiology Vascular & Interventional Radiology; Registered Nurse; ADMITTING PHYSICIAN Internal Medicine; ATTENDING PHYSICIAN Student in an Organized Health Care Education/Training Program; CONSULT PHYSICIAN Internal Medicine Infectious Disease; CONSULT PHYSICIAN Surgery; EMERGENCY PHYSICIAN Emergency Medicine; FAMILY PHYSICIAN Internal Medicine
PROC: 0WPGX0Z Removal of Drainage Device from Peritoneal Cavity, External Approach (ICD-10-PCS; 2023-11-18)
PROC: 0W9G3ZZ Drainage of Peritoneal Cavity, Percutaneous Approach (ICD-10-PCS; 2023-11-18)
DX: K57.20 Diverticulitis of large intestine with perforation and abscess without bleeding (principal); I10 Essential (primary) hypertension; F41.1 Generalized anxiety disorder; E03.9 Hypothyroidism, unspecified; F17.210 Nicotine dependence, cigarettes, uncomplicated; R19.7 Diarrhea, unspecified; E78.00 Pure hypercholesterolemia, unspecified; D64.9 Anemia, unspecified; R73.03 Prediabetes; E66.09 Other obesity due to excess calories; Z68.35 Body mass index [BMI] 35.0-35.9, adult; Z79.890 Hormone replacement therapy
CPT/HCPCS: 10160; 74177; 76830; 76856; 77012; 80048; 80053; 81003; 81015; 83605; 84703; 85025; 85027; 87070; 87075; 87086; 87205; 87324; 87449; 93005; 96361; 96365; 99152; 99285; 99406; Q9967

== ENCOUNTER 2023-12-16 19:00 | Inpatient (IN) | payer OTHER, SELFPAY ==
[2023-12-16 13:28] VITALS: BP 132/97
--- NOTE | 2023-12-16 14:30 | ED.GENMED ---
History of Present Illness
<Zeynep Rutledge [employer] - Last Filed: 12/16/23 16:59>
General
Chief Complaint: Abdominal Pain
Source: patient
Exam Limitations: none
Time Seen by Provider: 12/16/23 14:28
Nursing documentation reviewed up to this point in time: agreed with
History of Present Illness
History of Present Illness:
47-year-old female with history of HTN, diverticulitis, anxiety/depression, chronic smouldering diverticulitis, has appt with Dr. Murillo 12/22 to set up colon resection. She started with L side abd pain 2 days ago, gradually worsening and now 10/24.
Denies n/v. Had a small soft BM this a.m. Fever 101.2 this a.m., took Tylenol.
Past History
<Zeynep Rutledge, [employer] - Last Filed: 12/16/23 16:59>
Past History
ED Past Medical History: HTN, Hypercholesterolemia, Seizures, Hypothyroidism, Psychiatric (Alcohol abuse, anxiety, depression, Agorophobia) and Other (Bronchitis, Diverticulitis with abscess, Anemia, Pre-diabetic, Pre-emphysema. )
ED Past Surgical History:
Social History
Tobacco: Smoker
Alcohol: Former
Drug: None
Personal: Single
Living: with family
Employment: Employed
Family History
Family History: Other
Review of Systems
<Zeynep Rutledge, [employer] - Last Filed: 12/16/23 16:59>
Review of Systems
Allergies reviewed?: Yes
All Other Systems: ROS reviewed and negative except as documented in HPI and ROS
Constitutional: Reports fever; Denies chills
Respiratory: Denies trouble breathing
Cardiac: Denies chest pain
ABD/GI: Reports abdominal pain; Denies nausea, vomiting or diarrhea
: Denies dysuria, frequency or difficulty voiding
Musculoskeletal: Reports no symptoms
Skin: Reports no symptoms
Neurological: Reports no symptoms
Phy Exam
<Zeynep Rutledge, [employer] - Last Filed: 12/16/23 16:59>
Physical Exam
Physical Exam:
GENERAL: No acute distress. A&Ox3.
CONSTITUTIONAL: Temp 100.0
EYES: clear, conjunctivae normal
ENMT: moist mucus membranes
RESPIRATORY: Regular respirations, nonlabored, lungs clear with diminished BS throughout
CARDIOVASCULAR: Regular rate and rhythm, no murmurs, no rubs.
GI: Soft, tender LLQ, normal BS
MUSCULOSKELETAL: Moves with ease. Well perfused.
SKIN: Warm, dry, pink
PSYCH: Normal mood and affect. Well kept, interactive and appropriate
NEUROLOGIC: Awake, alert and oriented. No focal neurological deficits
Course
<Zeynep Rutledge, [employer] - Last Filed: 12/16/23 16:59>
Orders/Labs/Results
Orders:
Orders
12/16/23 14:39
CT Abd/Pel (IV only)-[facility] only Urgent
Comment:
Reason For Exam: LLQ pain, hx diverticulitis
0.9% Sodium Chloride 1000 ml [Nss] 1,000 ml IV BOLUS
12/16/23 14:41
Ondansetron Injectable [Zofran] 4 mg IV NOW STA
12/16/23 14:42
HYDROmorphone [Dilaudid] 1 mg IV NOW STA
12/16/23 14:51
Complete Blood Count/With Diff Urgent
Comprehensive Metabolic Panel Urgent
HCG, Serum Qualitative Screen Urgent
Comment: HCG QUALITATIVE ADDED ON BY FLOOR 4:15PM 12-16-23
Lipase Urgent
12/16/23 16:11
Ketorolac [Toradol] 15 mg IV NOW STA
12/16/23 16:13
Add On- LAB Urgent
Tests Added?: hcg qualitative
12/16/23 18:10
Piperacillin/Tazo 3.375 Gram [Zosyn] 3.375 gram in 50 ml IV NOW
12/16/23 18:30
Admit/Transfer Patient As Directed
Co-Sign Provider:
Level of Care: Inpatient admission
Assign to:: Medical/Surgical
Physician / Group: htay
Diagnosis: Recurrent acute diverticulitis with associated abscess formation and fistul
Reason for Hospitalization: Recurrent acute diverticulitis with associated abscess formation and probable
colovesical fistula
Expected length of stay greater than two midnights?: Yes
ELOS- Estimated Length of Stay in days: 3
I certify the patient meets the requirements for IP care: Yes
12/16/23 18:32
Code Status As Directed
Resuscitation Status: Full Code
12/16/23 19:34
0.9% Sodium Chloride 1000 ml [Nss] 1,000 ml IV 80 mls/hr
Acetaminophen [Tylenol] 650 mg PO Q4HPRN PRN
Bisacodyl [Dulcolax] 10 mg RECTAL [id number] PRN
Docusate W/Senna [Senokot-S] 1 tablet PO BIDPRN PRN
Lorazepam [Ativan] 1 mg IV Q8HPRN PRN
Polyethylene Glycol Powder [Miralax] 17 grams PO DAILYPRN PRN
12/16/23 19:34
Activity As Directed
Activity Level: With Assistance
Intake/ Output As Directed
Frequency: Per unit guidelines
Pneumatic Compression Sleeves As Directed
Type: Knee high
Vital Signs As Directed
Frequency: Per unit guidelines
Weight As Directed
Frequency: Daily
DX Deep Vein Thrombosis Video Routine
12/16/23 19:39
HYDROmorphone [Dilaudid] 1 mg IV Q4HPRN PRN
12/16/23 22:00
Ketorolac [Toradol] 10 mg IV Q6HPRN PRN
12/17/23 00:00
Piperacillin/Tazo 3.375 Gram [Zosyn] 3.375 gram in 50 ml IV Q6H
12/17/23 05:04
Basic Metabolic Panel IN AM
Complete Blood Count/No Diff IN AM
12/17/23 Breakfast
NPO
Allow oral meds: No
Allow clear liquids: No
NPO with Ice Chips: Yes
Abnormal Lab Results
12/16/23
14:51
WBC 14.1 H 10^3/uL
(4.8-10.8)
RDW 16.1 H %
(11.5-14.5)
MPV 10.9 H fL
(7.4-10.4)
Abs Immat Gran (auto) 0.1 H 10^3/uL
(0-0.05)
Absolute Neuts (auto) 10.7 H 10^3/uL
(1.4-6.5)
Absolute Monos (auto) 0.8 H 10^3/uL
(0.1-0.6)
Neutrophils % 76.0 H %
(42.2-75.2)
Lymphocytes % 17.1 L %
(20.5-51.1)
ALT 38 H U/L
(0-35)
Lipase 20 L U/L
(23-300)
12/16/23 14:51
12/16/23 14:51
Vital Signs
Initial and Last Documented VS:
Initial Vital Signs
Temp Pulse Resp BP Pulse Ox
100 F 98 18 132/97 97
12/16/23 13:28 12/16/23 13:28 12/16/23 13:28 12/16/23 13:28 12/16/23 13:28
Last Documented Vital Signs
Temp Pulse Resp BP Pulse Ox
98.3 F 87 18 107/69 98
12/17/23 15:15 12/17/23 15:15 12/17/23 15:15 12/17/23 15:15 12/17/23 15:15
<Noa Guo NP - Last Filed: 12/17/23 15:51>
Orders/Labs/Results
Orders:
Orders
12/16/23 14:39
CT Abd/Pel (IV only)-[facility] only Urgent
Comment:
Reason For Exam: LLQ pain, hx diverticulitis
0.9% Sodium Chloride 1000 ml [Nss] 1,000 ml IV BOLUS
12/16/23 14:41
Ondansetron Injectable [Zofran] 4 mg IV NOW STA
12/16/23 14:42
HYDROmorphone [Dilaudid] 1 mg IV NOW STA
12/16/23 14:51
Complete Blood Count/With Diff Urgent
Comprehensive Metabolic Panel Urgent
HCG, Serum Qualitative Screen Urgent
Comment: HCG QUALITATIVE ADDED ON BY FLOOR 4:15PM 12-16-23
Lipase Urgent
12/16/23 16:11
Ketorolac [Toradol] 15 mg IV NOW STA
12/16/23 16:13
Add On- LAB Urgent
Tests Added?: hcg qualitative
12/16/23 18:10
Piperacillin/Tazo 3.375 Gram [Zosyn] 3.375 gram in 50 ml IV NOW
12/16/23 18:30
Admit/Transfer Patient As Directed
Co-Sign Provider:
Level of Care: Inpatient admission
Assign to:: Medical/Surgical
Physician / Group: htay
Diagnosis: Recurrent acute diverticulitis with associated abscess formation and fistul
Reason for Hospitalization: Recurrent acute diverticulitis with associated abscess formation and probable
colovesical fistula
Expected length of stay greater than two midnights?: Yes
ELOS- Estimated Length of Stay in days: 3
I certify the patient meets the requirements for IP care: Yes
12/16/23 18:32
Code Status As Directed
Resuscitation Status: Full Code
12/16/23 19:34
0.9% Sodium Chloride 1000 ml [Nss] 1,000 ml IV 80 mls/hr
Acetaminophen [Tylenol] 650 mg PO Q4HPRN PRN
Bisacodyl [Dulcolax] 10 mg RECTAL [id number] PRN
Docusate W/Senna [Senokot-S] 1 tablet PO BIDPRN PRN
Lorazepam [Ativan] 1 mg IV Q8HPRN PRN
Polyethylene Glycol Powder [Miralax] 17 grams PO DAILYPRN PRN
12/16/23 19:34
Activity As Directed
Activity Level: With Assistance
Intake/ Output As Directed
Frequency: Per unit guidelines
Pneumatic Compression Sleeves As Directed
Type: Knee high
Vital Signs As Directed
Frequency: Per unit guidelines
Weight As Directed
Frequency: Daily
DX Deep Vein Thrombosis Video Routine
12/16/23 19:39
HYDROmorphone [Dilaudid] 1 mg IV Q4HPRN PRN
12/16/23 22:00
Ketorolac [Toradol] 10 mg IV Q6HPRN PRN
12/17/23 00:00
Piperacillin/Tazo 3.375 Gram [Zosyn] 3.375 gram in 50 ml IV Q6H
12/17/23 05:04
Basic Metabolic Panel IN AM
Complete Blood Count/No Diff IN AM
12/17/23 Breakfast
NPO
Allow oral meds: No
Allow clear liquids: No
NPO with Ice Chips: Yes
Abnormal Lab Results
12/16/23
14:51
WBC 14.1 H 10^3/uL
(4.8-10.8)
RDW 16.1 H %
(11.5-14.5)
MPV 10.9 H fL
(7.4-10.4)
Abs Immat Gran (auto) 0.1 H 10^3/uL
(0-0.05)
Absolute Neuts (auto) 10.7 H 10^3/uL
(1.4-6.5)
Absolute Monos (auto) 0.8 H 10^3/uL
(0.1-0.6)
Neutrophils % 76.0 H %
(42.2-75.2)
Lymphocytes % 17.1 L %
(20.5-51.1)
ALT 38 H U/L
(0-35)
Lipase 20 L U/L
(23-300)
12/16/23 14:51
12/16/23 14:51
Vital Signs
Initial and Last Documented VS:
Initial Vital Signs
Temp Pulse Resp BP Pulse Ox
100 F 98 18 132/97 97
12/16/23 13:28 12/16/23 13:28 12/16/23 13:28 12/16/23 13:28 12/16/23 13:28
Last Documented Vital Signs
Temp Pulse Resp BP Pulse Ox
98.3 F 87 18 107/69 98
12/17/23 15:15 12/17/23 15:15 12/17/23 15:15 12/17/23 15:15 12/17/23 15:15
<Zeynep Rutledge, [employer] - Last Filed: 12/16/23 16:59>
MDM/Problems Addressed
Differential Diagnosis Includes:
Diverticulitis, abscess
MDM/Problems Addressed:
47-year-old female with history of HTN, diverticulitis, anxiety/depression, chronic smouldering diverticulitis, has appt with Dr. Murillo 12/22 to set up colon resection. She started with L side abd pain 2 days ago, gradually worsening and now 10/24.
Denies n/v. Had a small soft BM this a.m. Fever 101.2 this a.m., took Tylenol.
Temp 100.0
CBC: WBC 14.1
CMP with no clinically significant abnormality
Lipase normal
5:[address] results.
Case discussed with Noa Guo [employer] who will assume care from this point.
<Noa Guo [employer] - Last Filed: 12/17/23 15:51>
*Critical Care Note
Total Time (30-74mins, 75-104mins- exclusive of procedures): Not Applicable
<Noa Guo [employer] - Last Filed: 12/17/23 15:51>
Update Note
Update Note:
CT report reviewed with patient. Diverticulitis with abscess, suspected colovesical fistula. Zosyn started. Dr. Ibarra notified of consult, Dr. murillo to follow.
ED Attending Note
<Zeynep Rutledge [employer] - Last Filed: 12/16/23 16:59>
-
Portions of this chart may have been created with voice recognition software.� Occasional wrong word or��sound alike� substitutions may have occurred due to the inherent limitations of voice recognition software.
Discharge Plan
Departure
Patient Disposition: Admit
Date of Disposition: 12/16/23
Time of Disposition: 18:10
Presentation/result/management discussed w/ accepting MD/DO: Hospitalist
Condition: Fair
Covid-19: Not Applicable
Discharge Problem:
Diverticulitis of intestine with abscess, Mclean-vesical fistula
Interventions
Interventions:
*Risk Screen - Suicide Last Done: 12/16/23 13:31
*General Assessment Last Done: 12/16/23 13:31
*Neglect/Abuse Screening Last Done: 12/16/23 13:31
ED- Fall Risk Assessment Last Done: 12/16/23 14:49
*ED COVID-19 Vaccine History Last Done: 12/16/23 15:02
*Nursing Disposition Last Done: 12/16/23 19:37
GR-Srmpbg-Knnyhmpjkr Assessment Last Done: 12/16/23 14:49
Discharge Date and Time
Discharge Date/Time: 12/16/23 19:38
[2023-12-16] MEDS: NSS 1000 IV ×2 (14:59→20:21)
[2023-12-16] MEDS: ZOFRAN 4 MG IV (15:00)
[2023-12-16 15:14] LABS: % Basophils 0.4 % (0-2); % Eosinophils 0.6 % (0-6); % Immature Granulocytes 0.4 % (0-0.5); % Lymphocytes 17.1 % (20.5-51.1); % Monocytes 5.5 % (1.7-9.3); Absolute Basophils 0.1 10^3/uL (0-0.2); Absolute Eosinophils 0.1 10^3/uL (0-0.7); Absolute Immature Granulocytes 0.1 10^3/uL (0-0.05); Absolute Lymphocytes 2.4 10^3/uL (1.2-3.4); Absolute Monocytes 0.8 10^3/uL (0.1-0.6); Absolute Neutrophils 10.7 10^3/uL (1.4-6.5); Hemoglobin 12.6 g/dL (12.0-16.0); Mean Corp Hgb Conc. 33.2 g/dL (33.0-37.0); Mean Corpuscular Hgb 28.6 pg (27.0-31.0); Mean Corpuscular Volume 86.2 fL (81.0-99.0); Mean Platelet Volume 10.9 fL (7.4-10.4); Nucleated Red Blood Cells % 0 %; Platelet Count 309 10^3/uL (130-400); Red Blood Cell Count 4.41 10^6/uL (4.20-5.40); Red Cell Dist. Width 16.1 % (11.5-14.5); White Blood Cell Count 14.1 10^3/uL (4.8-10.8)
[2023-12-16] MEDS: DILAUDID 1 MG IV (15:20)
[2023-12-16 15:22] VITALS: BP 107/80
[2023-12-16 15:33] LABS: ALT (SGPT) 38 U/L (0-35); AST (SGOT) 29 U/L (14-36); Albumin 4.1 g/dl (3.5-5.0); Alkaline Phosphatase 76 U/L (38-126); Blood Urea Nitrogen 11 mg/dl (7-17); Carbon Dioxide 25 mmol/L (22-30); Chloride 105 mmol/L (98-107); Glucose 95 mg/dl (70-99); Potassium 4.6 mmol/L (3.5-5.1); Sodium 143 mmol/L (135-145); Total Bilirubin 0.6 mg/dl (0.2-1.3); Total Protein 7.1 g/dl (6.3-8.2); eGFR > 60.00
[2023-12-16 16:00] VITALS: BP 104/75
[2023-12-16 16:06] LABS: Lipase 20 U/L (23-300)
[2023-12-16] MEDS: TORADOL 15 MG IV (16:14)
[2023-12-16 16:27] LABS: HCG, Serum Qualitative Screen Negative
[2023-12-16] MEDS: ZOSYN 50 IV (18:14)
--- NOTE | 2023-12-16 18:27 | HPS.HSE ---
Family Physician
-
Family Physician: Shaji Adler MD
Chief Complaint
-
L side abd pain 2 days ago
History of Present Illness
47F HX HTN, diverticulitis, anxiety/depression, chronic smouldering diverticulitis, has appt with Dr. Stephens 12/22 to set up colon resection.
- started with L side abd pain 2 days ago, gradually worsening and now 10/24
Medical History
Past Medical History
Past Medical History: Reports Other
Additional Past Medical History:
Diverticular Disease
Hypothyroidism
Obesity
Anxiety / Depression
Past Surgical History: Reports Other
Additional Past Surgical History:
Social History
Tobacco: Smoker (Current every day smoker. 'Too much'.)
Alcohol: None
Drug: None
Family History
Family History: Not pertinent
Allergies / Home Medications
Allergies reflects when Allergies were last updated in [employer].
Home Medications with original date entered in [employer]
Allergy/Medication List:
Allergies
Allergy/AdvReac Type Severity Reaction Status Date / Time
No Known Allergies Allergy Verified 10/25/23 21:20
Home Medications
levothyroxine 175 mcg tablet 175 mcg PO DAILY Thyroid 12/15/21
alprazolam 1 mg tablet (Xanax) 1 mg PO TID PRN anxiety #60 tabs 12/24/21
docusate sodium 100 mg capsule (Colace) 200 mg PO BID 10/25/23
polyethylene glycol 3350 17 gram/dose oral powder (Miralax) 4 g PO DAILYPRN PRN constipation 10/25/23
simethicone 80 mg chewable tablet 160 mg PO BID 10/25/23
amoxicillin 875 mg-potassium clavulanate 125 mg tablet 1 tab PO BID 10/26/23
Review of Systems
-
History Source: Patient
A 12 point ROS was completed and negative except as noted: Yes
Constitutional: Reports Fatigue; Denies Fever or Chills
EENT: Denies Sore Throat
Respiratory: Reports Trouble Breathing; Denies Cough
Cardiac: Denies Chest Pain or Palpitations
Abdomen/GI: Reports Abdominal Pain; Denies Nausea, Vomiting, Diarrhea, Constipated, Bloody Stools or Black Stools
: Reports Other (Difficulty urinating.); Denies Dysuria, Frequency or Bleeding
Neurological: Denies Dizzy or Headache
Psych: Denies Depression or Anxiety
Physical Exam
Vital Signs
Vital Signs
Temp Pulse Resp BP Pulse Ox
100 F 81 13 104/75 97
12/16/23 13:28 12/16/23 16:30 12/16/23 16:30 12/16/23 16:00 12/16/23 16:30
Physical Exam
General: Other (47y F in mild distress due to pain and dyspnea.)
HEENT: Moist mucous membranes and Other (Edentulous.)
Respiratory: Other (Decreased BS bilaterally.)
Cardiac: S1/S2 and Regular Rhythm; No Murmur
GI: Other (Obese, pos BS. Pos tenderness in LLQ without rebound.)
Musculoskeletal: No Clubbing, No Cyanosis and No Edema
Neuro: AO x 3
Laboratory Results
-
12/16/23 14:51
12/16/23 14:51
Laboratory Results
Total Bilirubin 0.6 mg/dl (0.2-1.3) 12/16/23 14:51
AST 29 U/L (14-36) 12/16/23 14:51
ALT 38 U/L (0-35) H 12/16/23 14:51
Alkaline Phosphatase 76 U/L (38-126) 12/16/23 14:51
Lipase 20 U/L (23-300) L 12/16/23 14:51
Data Reviewed
-
CT Scan: Report Reviewed by me
Lab Data: Labs Reviewed by me
Old Records: Reviewed
Impression/Plan
-
Reviewed VS: T 100 BP 105/75
Data
WCC 14
Unremarkable;e CMP
Lipase 20
NEG HCG
CT Abd/Pel (IV only)-DH only
Findings suggesting recurrent acute diverticulitis with associated abscess formation and probable colovesical fistula.
Hepatic fatty infiltration.
1 mm nonobstructing right renal stone..
Last hospitalist admission: Date of Admission: 11/15/23 - Date of Discharge: 11/19/23
Abdominal fluid collection/abscess status post drainage
ASSESSMENT & PLAN
Pending Rx reconciliation
Recurrent acute diverticulitis with associated abscess formation and probable colovesical fistula
Leucocytosis
HX Diverticulitis
, Diverticulitis with abscess,
- NPO and IVF
- IV Zosyn
- PRN analgesia
- CRS consult
Hypothyroidism
- Reports partially compliant with her T4 supplementation.
- held PO LT4 for now
Tobacco Use Disorder
Suspected COPD
- Nebs PRN.
- Encourage smoking cessation efforts.
Generalized Anxiety
- Stable.
- switch to PRN IV ativan in place of alprazolam
Obesity due to excess calories
- Encourage healthy diet and increased exercise with goal of weight loss.
DVT Prophylaxis: SCDs
Code Status: Full
IP MS
--- NOTE | 2023-12-16 18:56 | CON.CRS ---
Consultation
-
Reason for Consultation: diverticulitis
Medical History
-
Chief Complaint: abdominal pain
History of Present Illness:
47-year-old female well-known to me for history of smoldering sigmoid diverticulitis. Previously she was managed a few times in the hospital as an inpatient with antibiotics and IR drain placement. The drain was eventually removed. In fact she
was lined up for elective resection at some point in the recent past but was too anxious to pursue it. She has been at home off antibiotics and without a drain but unfortunately started having increasing left-sided pain and fever over the last 24
hours. The bowels are working and she is tolerating a diet. She is anxious about her circumstance. Blood work in the ER reveals leukocytosis with a white count of 14.1. Electrolytes and LFTs are essentially unremarkable. CT scan of the abdomen
and pelvis were performed. The images and report are available for review. This reveals significant inflammation of the sigmoid colon consistent with diverticulitis with phlegmon. There are also 2 documented fluid collections, one 2.4 cm in size
and the other 1.7 cm in size. There is also a pocket of air in the bladder leading to the concern for colovesical fistula. The patient on discussion denies any dysuria fecal urea or pneumaturia. I was consulted for colorectal surgical opinion
regarding her situation.
Past Medical History
Past Medical History: Diverticulitis, Hypothyroidism and Other (Anxiety and depression; Obesity)
Past Surgical History:
Social History
Tobacco: Smoker (Heavy)
Alcohol: None
Personal:
Living: With Family
Family History
Family History: Reviewed & Not Pertinent
Allergies / Home Medications
Allergy/AdvReac Type Severity Reaction Status Date / Time
No Known Allergies Allergy Verified 12/16/23 13:29
�Medication �Instructions �Recorded �Confirmed �Type
levothyroxine 175 mcg tablet 175 mcg PO DAILY Thyroid 12/15/21 12/16/23 History
Lactobac no.2-Bifidobac no.1-S. 1 cap PO DAILY #20 caps 11/19/23 12/16/23 Rx
thermo 112.5 billion cell capsule
(Visbiome)
alprazolam 1 mg tablet (Xanax) 1 mg PO TIDPRN PRN anxiety 12/16/23 12/16/23 History
Review of Systems
-
A 10 point review of systems was completed, and was negative except as per HPI.
Physical Exam
Vital Signs
Temp 100 F 12/16/23 13:28
Pulse 81 12/16/23 16:30
Resp Rate 13 12/16/23 16:30
Blood pressure 104/75 12/16/23 16:00
SaO2 97 12/16/23 16:30
12/15/23 12/16/23 12/17/23
06:59 06:59 06:59
Actual Weight 87.2 kg
Lab Results / Allergies
12/16/23 14:51
12/16/23 14:51
WBC 14.1 10^3/uL (4.8-10.8) H 12/16/23 14:51
Hgb 12.6 g/dL (12.0-16.0) 12/16/23 14:51
Hct 38.0 % (37.0-47.0) 12/16/23 14:51
Plt Count 309 10^3/uL (130-400) 12/16/23 14:51
Abs Immat Gran (auto) 0.1 10^3/uL (0-0.05) H 12/16/23 14:51
Neutrophils % 76.0 % (42.2-75.2) H 12/16/23 14:51
Allergy/AdvReac Type Severity Reaction Status Date / Time
No Known Allergies Allergy Verified 12/16/23 13:29
Physical Exam
General: Well Developed and Other (Smells like cigarettes)
HEENT: Normocephalic
Respiratory: Clear
Cardiac: Regular Rhythm
GI: Tender (Left-sided; no rebound or guarding) and Obese
Skin: Warm and Dry
Neuro: AO x 3
Psych: Other (Anxious)
Data Reviewed
-
CT Scan: Image Personally Visualized and interpreted, Discussed with Patient and Discussed with Family
Labs: Labs Reviewed by me, Discussed with Patient and Discussed with Family
Assessment / Plan
-
47-year-old female with ongoing smoldering sigmoid diverticulitis with 2 small associated abscesses as well as likely colovesical fistula. Agree with IV antibiotics. Will communicate with interventional radiology in the morning as to whether drain
placement or aspiration would be feasible. I am concerned that this patient is avoiding eventual surgery which will likely be necessary. I am hoping that we can cool things down a little bit and operate are in a few weeks time; however she has
been very hard to track down as an outpatient. There may be a role for considering surgery during this hospitalization with a good possibility for colostomy; however she is very resistant to the idea of a stoma. Suggest urology evaluation
regarding the concern for colovesical fistula. Will follow along.
[2023-12-16 19:45] VITALS: BP 139/85
[2023-12-16 19:46] VITALS: BMI 35.2
--- NOTE | 2023-12-16 23:36 | PTCARENOTE ---
Addendum entered by Neli Pope RN 12/17/23 00:31:
Pt transfered to [facility] with all her belongings. Report provided to the receiving RN.
Original Note:
Pt received from ER joe able to make her needs known.Pt states she smokes cigarettes 1/2 a pack some days.Denies she has any on her at this time.Pt refusing skin assessment at this time,states her skin is fine & was explained about the policy. Pt
oriented to room & call valera in reach. Plan of care continued.
[2023-12-17 00:14] VITALS: BP 124/83
[2023-12-17 00:34] VITALS: BP 128/92
[2023-12-17] MEDS: ZOSYN 50 IV ×5 (00:37→23:06)
--- NOTE | 2023-12-17 00:54 | PTCARENOTE ---
00:20pt rec'vd transfer from [facility] in w/c, IVF in place. Pt elf ambulated from w/c to bed. pt assessment incomplete as she refused for nurse to assess skin, pt is refusing to remove her clothing and gown. pt was educated however she continued to
refuse full skin assessment and changing into gown. Pt has maintained NPO status .
[2023-12-17] MEDS: DILAUDID 1 MG IV ×3 (01:01→23:54)
[2023-12-17] MEDS: TORADOL 10 MG IV (05:37)
[2023-12-17 05:51] VITALS: BMI 35.3
[2023-12-17 06:04] LABS: Hematocrit 35.6 % (37.0-47.0); Hemoglobin 11.5 g/dL (12.0-16.0); Mean Corp Hgb Conc. 32.3 g/dL (33.0-37.0); Mean Corpuscular Hgb 28.6 pg (27.0-31.0); Mean Corpuscular Volume 88.6 fL (81.0-99.0); Mean Platelet Volume 11.1 fL (7.4-10.4); Platelet Count 298 10^3/uL (130-400); Red Blood Cell Count 4.02 10^6/uL (4.20-5.40); Red Cell Dist. Width 16.2 % (11.5-14.5); White Blood Cell Count 12.9 10^3/uL (4.8-10.8)
[2023-12-17 06:21] LABS: Blood Urea Nitrogen 14 mg/dl (7-17); Calcium 8.3 mg/dl (8.4-10.2); Carbon Dioxide 28 mmol/L (22-30); Chloride 106 mmol/L (98-107); Estimated Creatinine Clearance 88 ml/min; Glucose 90 mg/dl (70-99); Sodium 141 mmol/L (135-145); eGFR > 60.00
--- NOTE | 2023-12-17 06:26 | PTCARENOTE ---
pt refused bath, CHG or linen changes as she verbalized ''I probably will not have surgery I have to speak with the doctor first'. Pt was educated of hospital protocols, pt verbalizes understanding however continued to decline.
[2023-12-17 06:27] LABS: Urine Albumin Trace (Neg - Trace); Urine Bilirubin Negative (Negative); Urine Color Yellow; Urine Glucose Negative (Negative); Urine Ketone Negative (Negative); Urine Leukocyte 2+ (Negative); Urine Nitrite Negative (Negative); Urine Occult Blood 3+ (Negative); Urine Specific Gravity 1.025 (<1.030); Urine Urobilinogen Negative (Neg - 1+)
[2023-12-17 06:33] LABS: Urine Character Cloudy (Clear)
[2023-12-17 06:46] LABS: Urine Mucus Many; Urine Squamous Cell >30 /LPF (Few)
[2023-12-17 06:47] LABS: Urine Amorphous Seen; Urine Bacteria Many (Negative); Urine Urothelial Cell >30 /LPF (FEW); Urine White Cell >100 /HPF (0-5)
[2023-12-17 07:25] VITALS: BP 103/64
--- NOTE | 2023-12-17 09:08 | W.PN.HOSP.TC ---
Today's Communication/Plan
-
see A/P
Assessment / Plan
Assessment / Plan
HPI: 47 yo F PMH HTN, diverticulitis, anxiety/depression, chronic smouldering diverticulitis, has appt with Dr. Stephens 12/22 to set up colon resection; p/w L sided abd pain 2 days [employer], gradually worsening.
A/P:
# Recurrent diverticulitis with associated abscess formation and probable colovesical fistula
# Sepsis POA due to above
# HX Diverticulitis
CT AP noted recurrent acute diverticulitis with associated abscess formation and probable colovesical fistula.
Cont NPO with IVF
Cont IV Zosyn
Pain control with IV Toradol and IV Dilaudid
IV PPI for gastric protection
CRS consult
# Hypothyroidism
Reports partially compliant with her T4 supplementation.
Hold PO Synthroid for now
# Tobacco Use Disorder
# Suspected COPD
Nebs PRN.
Encourage smoking cessation
# Generalized Anxiety, Stable.
switch to PRN IV ativan in place of alprazolam
# Obesity due to excess calories
BMI 35
Encourage healthy diet and increased exercise with goal of weight loss.
DVT Prophylaxis: SCDs
Code Status: Full
Anticipated Discharge: > 48 hours
Subjective/Interval History
-
Date of Service: December 17, 2023
Objective Data
-
Labs:
Laboratory Results
12/17/23
05:04
WBC 12.9 H
Hgb 11.5 L
Hct 35.6 L
Plt Count 298
Sodium 141
Potassium 4.0
Chloride 106
Carbon Dioxide 28
BUN 14
Creatinine 0.8
Glucose 90
Calcium 8.3 L
Vital Signs:
Vital Signs
Temp Pulse Resp BP Pulse Ox
36.7 C 85 18 103/64 99
12/17/23 07:25 12/17/23 07:25 12/17/23 07:25 12/17/23 07:25 12/17/23 07:25
I&O
12/16/23 12/17/23 12/18/23
06:59 06:59 06:59
Intake Total 780 / 780
Balance 780 / 780
Review of Systems
-
Abdomen/GI: Reports Abdominal Pain (LLQ)
Physical Exam
-
General: Well Developed, Well Nourished, No Apparent Distress, Comfortable and Conversant
HEENT: Normocephalic and Atraumatic
Respiratory: Clear to Auscultation and Non Labored Respirations; Negative Wheezes or Accessory Resp Muscle Use
Cardiac: Regular Rhythm and S1/S2
GI: Soft, Nondistended, Normal Bowel Sounds and Tender (LLQ)
Neuro: Awake and Alert
Psych: Calm and Intact Judgement/Insight
Data Reviewed
-
CT Scan: Report Reviewed by me
Labs: Labs Reviewed by me
--- NOTE | 2023-12-17 11:43 | W.PN.CRS1 ---
Today's Communication / Plan
-
as below
Assessment/Plan
-
47-year-old female with hypothyroid, anxiety/depression and recurrent diverticulitis with abscess s/p IR drainage (recently admitted and IR drain removed; being set up for elective surgery, but patient canceled); presented for recurrent abdominal
pain
Tmax 100.0, HR 80s, normotensive
WBC 12.9 from 14.1
Recurrent diverticulitis with recurrent abscesses, greatest measuring 2.4 cm in the LLQ, second abscess at the dome of the bladder measuring 1.7 cm, bubble and bladder concerning for possible colovesical fistula
� Continue n.p.o., IVF, IV antibiotics
� Will consult with IR regarding whether abscesses are drainable or not
� No acute surgical intervention currently indicated
� Recommend urology consult for possible colovesical fistula
� Recommend increasing pain regiment and adding Zofran as needed
� Recommend adding DVT PPx with Lovenox
Subjective Data
Subjective Data
Date of Service: December 17, 2023
No overnight events. Pain not well-controlled. Passing flatus and BMs.
Objective Data
-
Vital Signs
Temp Pulse Resp BP Pulse Ox
98.1 F 85 18 103/64 99
12/17/23 07:25 12/17/23 07:25 12/17/23 07:25 12/17/23 07:25 12/17/23 07:25
Intake & Output
12/16/23 12/17/23 12/18/23
06:59 06:59 06:59
Intake Total 780 / 780
Balance 780 / 780
Intake:
Oral fluids 120 / 120
IV fluids (Total) 560 / 560
IV piggybacks 100 / 100
Other:
Number of approximated LARGE 1
amounts of urine
Lab Results
12/17/23 05:04
12/17/23 05:04
Physical Exam
-
General: No Acute Distress and AOx3
HEENT: Grossly Normal
Abdomen: Soft, Non Distended, Tender (Mildly tender on the left hemiabdomen), No Guarding and No Rebound
Skin: Warm and Dry
[2023-12-17] MEDS: NSS 1000 IV ×2 (12:29→23:06)
[2023-12-17] MEDS: NSS (PRESERVATIVE FREE) 10 ML IV (12:30)
[2023-12-17] MEDS: PROTONIX IV 40 MG IV (12:30)
--- NOTE | 2023-12-17 14:18 | CM ---
Alert awake oriented patient who lives with her SO Alex in a 1 story home with 0 steps to enter.She is independent in activates of daily living.She does drive .She used no adaptive devices.
Had no VN in past . No SNF hx
Pharmacy [facility]
PCP Dr Shjai Adler
PLAN Home Pt unsure if she will need VN at dc.
[2023-12-17 15:15] VITALS: BP 107/69
[2023-12-17] MEDS: ZOFRAN 4 MG IV ×2 (16:02→23:15)
[2023-12-17] MEDS: COMPAZINE 5 MG IV (17:58)
[2023-12-17] MEDS: ATIVAN 1 MG IV (23:16)
[2023-12-17] MEDS: NSS (PRESERVATIVE FREE) 0.5 ML IV (23:16)
[2023-12-17 23:55] VITALS: BP 110/62
[2023-12-18] MEDS: ZOSYN 50 IV ×4 (05:11→23:22)
[2023-12-18] MEDS: TORADOL 10 MG IV (05:20)
[2023-12-18 05:26] VITALS: BMI 35.5
[2023-12-18 05:58] VITALS: BMI 35.5
[2023-12-18 06:46] LABS: Hematocrit 36.3 % (37.0-47.0); Hemoglobin 11.6 g/dL (12.0-16.0); Mean Corpuscular Hgb 29.1 pg (27.0-31.0); Mean Corpuscular Volume 91.2 fL (81.0-99.0); Mean Platelet Volume 11.4 fL (7.4-10.4); Platelet Count 318 10^3/uL (130-400); Red Blood Cell Count 3.98 10^6/uL (4.20-5.40); Red Cell Dist. Width 16.1 % (11.5-14.5); White Blood Cell Count 12.2 10^3/uL (4.8-10.8)
[2023-12-18 06:54] LABS: INR 1.13; PT 14.5 Sec (11.4-14.6)
[2023-12-18 07:13] LABS: Blood Urea Nitrogen 11 mg/dl (7-17); Calcium 8.3 mg/dl (8.4-10.2); Carbon Dioxide 28 mmol/L (22-30); Chloride 102 mmol/L (98-107); Estimated Creatinine Clearance 101 ml/min; Glucose 91 mg/dl (70-99); Magnesium 1.9 mg/dl (1.6-2.3); Sodium 142 mmol/L (135-145); eGFR > 60.00
[2023-12-18 07:30] VITALS: BP 119/82
[2023-12-18] MEDS: ZOFRAN 4 MG IV ×2 (08:29→21:56)
[2023-12-18] MEDS: NSS (PRESERVATIVE FREE) 10 ML IV (08:30)
[2023-12-18] MEDS: FLUSH (NSS) 2 FLUSH IV (08:30)
[2023-12-18] MEDS: PROTONIX IV 40 MG IV (08:30)
--- NOTE | 2023-12-18 08:34 | W.PN.CRS1 ---
Addendum entered and electronically signed by Remington Celestin MD 12/18/23 08:53:
d/w IR; unable to get to aspiration for her due to emergencies; will give her clears and make NPO at midnight for the procedure tmrw
Original Note:
Today's Communication / Plan
-
As below
Assessment/Plan
-
47-year-old female with hypothyroid, anxiety/depression and recurrent diverticulitis with abscess s/p IR drainage (recently admitted and IR drain removed; being set up for elective surgery, but patient canceled); presented for recurrent abdominal
pain
AFVSS
WBC 12.2 from 12.9
Recurrent diverticulitis with recurrent abscesses, greatest measuring 2.4 cm in the LLQ, second abscess at the dome of the bladder measuring 1.7 cm, bubble and bladder concerning for possible colovesical fistula
� Continue n.p.o., IVF; okay for clears after IR procedure
� Recommend IR drainage; discussed with IR yesterday, who recommended aspiration without drain placement
� Continue IV Zosyn
� No acute surgical intervention currently indicated
� Appreciate urology consult for possible colovesical fistula
�Continue pain control with Tylenol, Toradol, Dilaudid as needed
� Recommend adding DVT PPx with Lovenox
Subjective Data
Subjective Data
Date of Service: December 18, 2023
No overnight events. Pain somewhat improved. Denies N/V, except for episode of nausea after a Dilaudid push. Passing flatus and having BMs. Very anxious about any procedure. Very anxious in general.
Objective Data
-
Vital Signs
Temp Pulse Resp BP Pulse Ox
97.7 F 85 18 119/82 99
12/18/23 07:30 12/18/23 07:30 12/18/23 07:30 12/18/23 07:30 12/18/23 07:30
Intake & Output
1012/18/23 12/19/23
06:59 06:59 06:59
Intake Total 780 / 780 2750 / 2750
Balance 780 / 780 2750 / 2750
Intake:
Oral fluids 120 / 120 900 / 900
IV fluids (Total) 560 / 560 1600 / 1600
IV piggybacks 100 / 100 250 / 250
Other:
Number of approximated MODERATE 4
amounts of urine
Number of approximated LARGE 1
amounts of urine
Lab Results
12/18/23 04:41
12/18/23 04:41
Physical Exam
-
General: No Acute Distress and AOx3
HEENT: Grossly Normal
Abdomen: Soft, Non Distended, Tender (Minimally to mildly tender in the left hemiabdomen, improved from yesterday), No Guarding and No Rebound
Skin: Warm and Dry
--- NOTE | 2023-12-18 10:07 | W.PN.HOSP.TC ---
Today's Communication/Plan
-
see A/P
Assessment / Plan
Assessment / Plan
HPI: 47 yo F PMH HTN, diverticulitis, anxiety/depression, chronic smouldering diverticulitis, has appt with Dr. 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
A/P:
# Recurrent diverticulitis with associated abscess formation and probable colovesical fistula
# Sepsis POA due to above
# HX Diverticulitis
CT AP noted recurrent acute diverticulitis with associated abscess formation and probable colovesical fistula.
IR CS for abscess aspiration
Clears per CRS today, then NPO prior to aspiration
Cont IV Zosyn
Pain control with IV Toradol and IV Dilaudid; IV PPI for gastric protection
CRS on board
URo CS for colovesical fistula
# Hypothyroidism
Reports partially compliant with her T4 supplementation.
Hold PO Synthroid for now
# Tobacco Use Disorder
# Suspected COPD
Nebs PRN.
Encourage smoking cessation
# Generalized Anxiety, Stable.
switch to PRN IV ativan in place of alprazolam
# Obesity due to excess calories
BMI 35
Encourage healthy diet and increased exercise with goal of weight loss.
DVT Prophylaxis: SCDs
Code Status: Full
Anticipated Discharge: > 48 hours
Subjective/Interval History
-
Date of Service: December 18, 2023
Objective Data
-
Labs:
Laboratory Results
12/18/23
04:41
WBC 12.2 H
Hgb 11.6 L
Hct 36.3 L
Plt Count 318
PT 14.5
INR 1.13
Sodium 142
Potassium 4.0
Chloride 102
Carbon Dioxide 28
BUN 11
Creatinine 0.7
Glucose 91
Calcium 8.3 L
Vital Signs:
Vital Signs
Temp Pulse Resp BP Pulse Ox
36.5 C 85 18 119/82 99
12/18/23 07:30 12/18/23 07:30 12/18/23 07:30 12/18/23 07:30 12/18/23 07:30
I&O
12/17/23 12/18/23 12/19/23
06:59 06:59 06:59
Intake Total 780 / 780 2750 / 2750
Balance 780 / 780 2750 / 2750
Review of Systems
-
Abdomen/GI: Reports Abdominal Pain (LLQ)
Physical Exam
-
General: Well Developed, Well Nourished, No Apparent Distress, Comfortable and Conversant
HEENT: Normocephalic and Atraumatic
Respiratory: Clear to Auscultation and Non Labored Respirations; Negative Wheezes or Accessory Resp Muscle Use
Cardiac: Regular Rhythm and S1/S2
GI: Soft, Nondistended, Normal Bowel Sounds and Tender (LLQ)
Neuro: Awake and Alert
Psych: Calm and Intact Judgement/Insight
Data Reviewed
-
CT Scan: Report Reviewed by me
Labs: Labs Reviewed by me
[2023-12-18 15:15] VITALS: BP 105/65
--- NOTE | 2023-12-18 16:14 | CM ---
met with patient at bedside.patient with diverticular abscess,cont npo,ivf,iv abx,add ;lovenox,for ir aspiration without drain placement tomorrow.can have clears after procedure.Plan:home with no needs vs possible vn.
[2023-12-18] MEDS: NSS IV (21:00)
[2023-12-18] MEDS: DILAUDID 1 MG IV (22:13)
[2023-12-18 23:00] VITALS: BP 140/86
[2023-12-18] MEDS: TYLENOL 650 MG PO (23:22)
[2023-12-19] MEDS: ATIVAN 1 MG IV (00:39)
[2023-12-19] MEDS: ZOSYN 50 IV ×4 (05:10→23:09)
[2023-12-19 05:53] VITALS: BMI 35.9
[2023-12-19] MEDS: ZOFRAN 4 MG IV (06:11)
[2023-12-19 06:24] LABS: Hematocrit 30.8 % (37.0-47.0); Hemoglobin 10.1 g/dL (12.0-16.0); Mean Corp Hgb Conc. 32.8 g/dL (33.0-37.0); Mean Corpuscular Hgb 29.8 pg (27.0-31.0); Mean Corpuscular Volume 90.9 fL (81.0-99.0); Platelet Count 306 10^3/uL (130-400); Red Blood Cell Count 3.39 10^6/uL (4.20-5.40); Red Cell Dist. Width 15.9 % (11.5-14.5); White Blood Cell Count 9.2 10^3/uL (4.8-10.8)
[2023-12-19 06:44] LABS: Blood Urea Nitrogen 7 mg/dl (7-17); Calcium 8.4 mg/dl (8.4-10.2); Carbon Dioxide 29 mmol/L (22-30); Chloride 103 mmol/L (98-107); Estimated Creatinine Clearance 102 ml/min; Glucose 107 mg/dl (70-99); Magnesium 2.1 mg/dl (1.6-2.3); Potassium 4.1 mmol/L (3.5-5.1); Sodium 141 mmol/L (135-145); eGFR > 60.00
[2023-12-19 07:29] VITALS: BP 137/94
--- NOTE | 2023-12-19 09:27 | W.PN.HOSP.TC ---
Today's Communication/Plan
-
see A/P
Assessment / Plan
Assessment / Plan
HPI: 47 yo F PMH HTN, diverticulitis, anxiety/depression, chronic smouldering diverticulitis, has appt with Dr. 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
A/P:
# Recurrent diverticulitis with associated abscess formation and probable colovesical fistula
# Sepsis POA due to above
# HX Diverticulitis
CT AP noted recurrent acute diverticulitis with associated abscess formation and probable colovesical fistula.
IR CS for abscess aspiration today
Cont IV Zosyn
Pain control with IV Toradol and IV Dilaudid; IV PPI for gastric protection
CRS on board
Uro CS for colovesical fistula
# Hypothyroidism
Reports partially compliant with her T4 supplementation.
Hold PO Synthroid for now
# Tobacco Use Disorder
# Suspected COPD
Nebs PRN.
Encourage smoking cessation
# Generalized Anxiety, Stable.
switch to PRN IV ativan in place of alprazolam
# Obesity due to excess calories
BMI 35
Encourage healthy diet and increased exercise with goal of weight loss.
DVT Prophylaxis: SCDs
Code Status: Full
Anticipated Discharge: 24 - 48 hours
Subjective/Interval History
-
Date of Service: December 19, 2023
Objective Data
-
Labs:
Laboratory Results
12/19/23
05:00
WBC 9.2
Hgb 10.1 L
Hct 30.8 L
Plt Count 306
Sodium 141
Potassium 4.1
Chloride 103
Carbon Dioxide 29
BUN 7
Creatinine 0.7
Glucose 107 H
Calcium 8.4
Vital Signs:
Vital Signs
Temp Pulse Resp BP Pulse Ox
36.5 C 68 15 137/94 95
12/19/23 07:29 12/19/23 07:29 12/19/23 07:29 12/19/23 07:29 12/19/23 07:29
I&O
12/18/23 12/19/23 12/20/23
06:59 06:59 06:59
Intake Total 2750 / 2750 1540 / 1540
Balance 2750 / 2750 1540 / 1540
Review of Systems
-
Abdomen/GI: Reports Abdominal Pain (LLQ, improved )
Physical Exam
-
General: Well Developed, Well Nourished, No Apparent Distress, Comfortable and Conversant
HEENT: Normocephalic and Atraumatic
Respiratory: Clear to Auscultation and Non Labored Respirations; Negative Wheezes or Accessory Resp Muscle Use
Cardiac: Regular Rhythm and S1/S2
GI: Soft, Nondistended, Normal Bowel Sounds and Tender (LLQ)
Neuro: Awake and Alert
Psych: Calm and Intact Judgement/Insight
Data Reviewed
-
CT Scan: Report Reviewed by me
Labs: Labs Reviewed by me
[2023-12-19 09:40] VITALS: BP 148/102; BP_SYST 69
--- NOTE | 2023-12-19 09:59 | CONS.URO ---
Consultation
-
Performing Provider: Jamshid
Reason for Consultation: suspected colo-vesical fistula
Medical History
History of Present Illness
47 yo female with h/o 'smoldering diverticulitis' followed by Dr Stephens now admitted for flare.
she denies: UTI sx, [dysuria/frequency/urgency], hematuria, pneumaturia
'I pee in a cup so I can look at it . . . nothing abnormal'
Past Medical History
Past Medical History: Other (Diverticulitis, Hypothyroidism and Other (Anxiety and depression; Obesity)
Allergies/Home Medications
Allergies
Allergy/AdvReac Type Severity Reaction Status Date / Time
No Known Allergies Allergy Verified 12/16/23 13:29
Home Medications
�Medication �Instructions �Recorded �Confirmed �Type
levothyroxine 175 mcg tablet 175 mcg PO DAILY Thyroid 12/15/21 12/16/23 History
Lactobac no.2-Bifidobac no.1-S. 1 cap PO DAILY #20 caps 11/19/23 12/16/23 Rx
thermo 112.5 billion cell capsule
(Visbiome)
alprazolam 1 mg tablet (Xanax) 1 mg PO TIDPRN PRN anxiety 12/16/23 12/16/23 History
Physical Exam
Vital Signs
Vital Signs
Temp Pulse Resp BP Pulse Ox
97.7 F 69 19 148/102 98
12/19/23 09:40 12/19/23 09:40 12/19/23 09:40 12/19/23 09:40 12/19/23 09:40
Lab / Testing Results
Laboratory Results
12/19/23 05:00
12/19/23 05:00
Physical Exam
adult female in NAD
General: Comfortable
HEENT: Other (poor dentition)
GI: Soft and Other (LLQ tenderness)
Genito-urinary: No Costovertebral Tend
Skin: Warm
Neuro: Awake, Alert and Oriented
Psych: Calm and Intact Judgement
Assessment / Plan
-
Impression: imaging appears to confirm presence of fistulization of chronic sigmoid diverticulitis into the urinary bladder
but two recent negative urine cultures and absence of UTI symptoms strongly suggest otherwise.
Rec:
if surgery is to be pursued by CRS, then repair of the bladder contiguity to diverticular abscess would be evaluated cystoscopically then laparoscopically
Data Reviewed
-
CT Scan: Image personally visualized and interpreted (LLQ diverticulitis with abscess and apparent fistulization into bladder [air within bladder lumen])
Lab Data: Labs Reviewed
Old Records: Reviewed
--- NOTE | 2023-12-19 10:48 | W.PN.CRS1 ---
Today's Communication / Plan
-
IR
urology c/s
Assessment/Plan
-
47-year-old female with hypothyroid, anxiety/depression and recurrent diverticulitis with abscess s/p IR drainage (recently admitted and IR drain removed; being set up for elective surgery, but patient canceled); presented for recurrent abdominal
pain
AFVSS
WBC 9.2 fro 12.2
Recurrent diverticulitis with recurrent abscesses, greatest measuring 2.4 cm in the LLQ, second abscess at the dome of the bladder measuring 1.7 cm, bubble and bladder concerning for possible colovesical fistula
� Continue n.p.o., IVF; okay for fulls after IR procedure
� Continue IV Zosyn
� No acute surgical intervention currently indicated
� Appreciate urology consult for possible colovesical fistula, I spoke with Dr. Breen who will se eher today
�Continue pain control with Tylenol, Toradol, Dilaudid as needed
� Recommend adding DVT PPx with Lovenox
Subjective Data
Subjective Data
Date of Service: December 19, 2023
Low residue patient states she still has left lower quadrant pain but it is slowly improving. She has no nausea or vomiting. She is very hungry.
Objective Data
-
Vital Signs
Temp Pulse Resp BP Pulse Ox
97.7 F 69 19 148/102 98
12/19/23 09:40 12/19/23 09:40 12/19/23 09:40 12/19/23 09:40 12/19/23 09:40
Intake & Output
12/18/23 12/19/23 12/20/23
06:59 06:59 06:59
Intake Total 2750 / 2750 1540 / 1540
Balance 2750 / 2750 1540 / 1540
Intake:
Oral fluids 900 / 900 840 / 840
IV fluids (Total) 1600 / 1600 500 / 500
IV piggybacks 250 / 250 200 / 200
Other:
Number of approximated MODERATE 4 3
amounts of urine
Lab Results
12/19/23 05:00
12/19/23 05:00
Physical Exam
-
General: No Acute Distress and AOx3
Abdomen: Soft, Non Distended and Tender (LLQ- improving)
Skin: Warm and Dry
--- NOTE | 2023-12-19 11:15 | CM ---
Addendum entered by Ivette Mane 12/19/23 11:22:
Boyfriend to transport when discharged.
Original Note:
Met with patient.
IR today, per note ok for fulls after IR procedure
cont w/IV abx and pain mgmt
currently no anticipated needs
PLAN: Discharge to home, no needs anticipated
--- NOTE | 2023-12-19 11:40 | W.PN.UPDATE ---
Update Note
Progress Note Update
US performed, and the collection LLQ was seen with US. It measured 1.7 cm and was anechoic. Images were shown to patient, and it was explained that the collection is too small for drainage catheter placement, and does not appear to be complicated on
US, but that it may still may be infected. She decided to not have needle aspiration done at this time.
[2023-12-19] MEDS: NSS IV ×2 (11:51→11:52)
[2023-12-19] MEDS: NSS (PRESERVATIVE FREE) 10 ML IV (12:26)
[2023-12-19] MEDS: PROTONIX IV 40 MG IV (12:26)
[2023-12-19 15:51] VITALS: BP 133/89
[2023-12-19] MEDS: TORADOL 10 MG IV (20:10)
[2023-12-19 23:00] VITALS: BP 157/78
[2023-12-19 23:17] VITALS: BP 157/78
[2023-12-20] MEDS: ZOSYN 50 IV (05:25)
[2023-12-20 05:26] VITALS: BMI 35.6
[2023-12-20 05:59] LABS: Hematocrit 31.1 % (37.0-47.0); Hemoglobin 10.3 g/dL (12.0-16.0); Mean Corp Hgb Conc. 33.1 g/dL (33.0-37.0); Mean Corpuscular Hgb 28.6 pg (27.0-31.0); Mean Corpuscular Volume 86.4 fL (81.0-99.0); Mean Platelet Volume 10.6 fL (7.4-10.4); Platelet Count 349 10^3/uL (130-400); Red Cell Dist. Width 15.6 % (11.5-14.5); White Blood Cell Count 8.7 10^3/uL (4.8-10.8)
[2023-12-20 06:22] LABS: Blood Urea Nitrogen 7 mg/dl (7-17); Calcium 8.8 mg/dl (8.4-10.2); Carbon Dioxide 31 mmol/L (22-30); Chloride 103 mmol/L (98-107); Estimated Creatinine Clearance 89 ml/min; Glucose 94 mg/dl (70-99); Magnesium 2.1 mg/dl (1.6-2.3); Potassium 3.8 mmol/L (3.5-5.1); Sodium 141 mmol/L (135-145); eGFR > 60.00
[2023-12-20 07:22] VITALS: BP 154/95
[2023-12-20] MEDS: NSS (PRESERVATIVE FREE) 10 ML IV (08:18)
[2023-12-20] MEDS: PROTONIX IV 40 MG IV (08:19)
--- NOTE | 2023-12-20 10:59 | W.PN.CRS1 ---
Today's Communication / Plan
-
Okay to discharge from our perspective
Follow-up for surgical discussion with Dr. Stephens as an outpatient
Assessment/Plan
-
47-year-old female with hypothyroid, anxiety/depression and recurrent diverticulitis with abscess s/p IR drainage (recently admitted and IR drain removed; being set up for elective surgery, but patient canceled); presented for recurrent abdominal
pain
AFVSS
WBC 8.7
Recurrent diverticulitis with recurrent abscesses, greatest measuring 2.4 cm in the LLQ, second abscess at the dome of the bladder measuring 1.7 cm, bubble and bladder concerning for possible colovesical fistula. Refused IR aspiration on 12 18
� Continue low residue diet
� Continue IV Zosyn
� No acute surgical intervention currently indicated
� Appreciate urology consult
� Continue pain control with Tylenol, Toradol, Dilaudid as needed
�Given no plans for surgery at this time and patient is improving, okay for discharge from our perspective. She will follow-up with Dr. Stephens as an outpatient to discuss her elective surgical planning. Discussed with the patient at length.
Subjective Data
Subjective Data
Date of Service: December 20, 2023
Patient states she feels achy but has no real abdominal pain. She is having bowel movements. She has a lot of questions about the next steps to her care.
Objective Data
-
Vital Signs
Temp Pulse Resp BP Pulse Ox
98.9 F 70 16 154/95 96
12/20/23 07:22 12/20/23 07:22 12/20/23 07:22 12/20/23 07:22 12/20/23 07:22
Intake & Output
12/19/23 12/20/23 12/21/23
06:59 06:59 06:59
Intake Total 1540 / 1540 2460 / 2460
Balance 1540 / 1540 2460 / 2460
Intake:
Oral fluids 840 / 840 2260 / 2260
IV fluids (Total) 500 / 500
IV piggybacks 200 / 200 200 / 200
Other:
Number of approximated MODERATE 3 5
amounts of urine
Lab Results
12/20/23 05:22
12/20/23 05:22
Physical Exam
-
General: No Acute Distress and AOx3
Abdomen: Soft, Non Distended and Non Tender
Skin: Warm and Dry
--- NOTE | 2023-12-20 11:10 | W.PN.HOSP.TC ---
Addendum entered and electronically signed by Brianne Nina MD 12/20/23 12:34:
total DC time 38 min
Original Note:
Today's Communication/Plan
-
see A/P
Assessment / Plan
Assessment / Plan
HPI: 47 yo F PMH HTN, diverticulitis, anxiety/depression, chronic smouldering diverticulitis, has appt with Dr. 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
A/P:
# Recurrent diverticulitis with associated abscess formation and probable colovesical fistula
# Sepsis POA due to above
# HX Diverticulitis
CT AP noted recurrent acute diverticulitis with associated abscess formation and probable colovesical fistula.
IR was consulted for aspiration, but pt refused aspiration per IR
Cont IV Zosyn
ID CS to determine duration/course of Abx for diverticulitis with abscess
Pain control with IV Toradol and IV Dilaudid; IV PPI for gastric protection
CRS on board
Uro on board colovesical fistula
Started low residue diet and pt tolerating well
# Hypothyroidism
Reports partially compliant with her T4 supplementation.
resume PO Synthroid for now
# Tobacco Use Disorder
# Suspected COPD
Nebs PRN.
Encourage smoking cessation
# Generalized Anxiety, Stable.
switch to PRN IV ativan in place of alprazolam
# Obesity due to excess calories
BMI 35
Encourage healthy diet and increased exercise with goal of weight loss.
DVT Prophylaxis: SCDs
Code Status: Full
Anticipated Discharge: Today
Subjective/Interval History
-
Date of Service: December 20, 2023
Objective Data
-
Labs:
Laboratory Results
12/20/23
05:22
WBC 8.7
Hgb 10.3 L
Hct 31.1 L
Plt Count 349
Sodium 141
Potassium 3.8
Chloride 103
Carbon Dioxide 31 H
BUN 7
Creatinine 0.8
Glucose 94
Calcium 8.8
Vital Signs:
Vital Signs
Temp Pulse Resp BP Pulse Ox
37.2 C 70 16 154/95 96
12/20/23 07:22 12/20/23 07:22 12/20/23 07:22 12/20/23 07:22 12/20/23 07:22
I&O
12/19/23 12/20/23 12/21/23
06:59 06:59 06:59
Intake Total 1540 / 1540 2460 / 2460
Balance 1540 / 1540 2460 / 2460
Review of Systems
-
Abdomen/GI: Reports Abdominal Pain (mild)
Physical Exam
-
General: Well Developed, Well Nourished, No Apparent Distress, Comfortable and Conversant
HEENT: Normocephalic and Atraumatic
Respiratory: Clear to Auscultation and Non Labored Respirations; Negative Wheezes or Accessory Resp Muscle Use
Cardiac: Regular Rhythm and S1/S2
GI: Soft, Nondistended and Normal Bowel Sounds
Neuro: Awake and Alert
Psych: Calm and Intact Judgement/Insight
Data Reviewed
-
CT Scan: Report Reviewed by me
Labs: Labs Reviewed by me
[2023-12-20] MEDS: ZOSYN IV ×2 (11:55→12:12)
[2023-12-20] MEDS: VISBIOME 1 CAP PO (12:01)
[2023-12-20] MEDS: SYNTHROID 175 MCG PO (12:01)
--- NOTE | 2023-12-20 12:03 | CON.ID ---
Consultation
-
Date/Time Consultation Requested: 12/19/2023 1635
Date/Time Consultation Performed: 12/20/2023 1130
Requesting Provider: Dr. Nina
Performing Provider: Dr. Jimenez
Reason for Consultation: Diverticulitis; options for outpatient antimicrobial therapy.
Chief Complaint / Past History
History of Present Illness
Alyssa Hwang is a 47-year-old female with an underlying history of diverticulitis being evaluated at the request of Dr. Nina regarding options for outpatient treatment of diverticulitis. History is obtained from chart review, along with patient
interview.
The patient is known to the Infectious Diseases service, having been seen during an admission dated 10/24 through 10/29 for diverticulitis. During that admission, she was found to have a diverticular abscess and a drain was placed. On 10/29 she was
discharged to home with a plan to 2-week course of levofloxacin and metronidazole. She reports that she took 4 days of this therapy, but she became so fatigued she called her physician and was transition to another unknown antibiotic regimen,
although subsequent notes indicate that she did finish this regimen.
She presented back to the emergency room on 11/13, and was admitted through 11/18. Her hospital course was significant for resolution of a previously seen collection at the site of her drain, but and then another collection was noted, which was then
drained. Thereafter, she was transitioned to moxifloxacin which she took through 11/28.
She presents back to the emergency room on 12/15 secondary to increasing pain in the left lower quadrant over the prior 48 hours. She was admitted and placed on Zosyn. Infectious Diseases is now asked to comment upon antibiotic selection for
discharge.
Overall, the patient reports she is feeling improved. She is marked improvement in her left lower quadrant pain. She has been afebrile since admission, and white count has improved.
Past History
Additional Past Medical History:
Hypothyroidism
Recurrent diverticulitis/abscess
Anxiety
BMI 37.5
Tobacco use disorder
Additional Past Surgical History:
C- section
Allergy History:
No Known Allergies Allergy (Verified 12/16/23 13:29)
Medications Reviewed: Yes
Current Antibiotics:
Zosyn 3.375 g IV every 6 hours (d#5)
Social History
Tobacco: Smoker
Alcohol: None
Drug: None
Personal: Partner (boyfriend)
Family History
Family History: Not Pertinent
Review of Systems
Vital Signs
Temp Pulse Resp BP Pulse Ox
98.9 F 70 16 154/95 96
12/20/23 07:22 12/20/23 07:22 12/20/23 07:22 12/20/23 07:22 12/20/23 07:22
Physical Exam
Physical Exam
Constitutional: No Acute Distress and Comfortable
Eyes: No Conjunctival Hemorrhage and Sclera Anicteric
Cardiovascular: Regular Rate and S1/S2
Pulmonary: Clear
Gastrointestinal: Soft, Tender (left lower quadrant, mild), Non Distended, Normal Bowel Sounds, No Rebound, No Guarding and Other (Left DONY drain with clear fluid.)
Extremities: Negative Edema
Neurological: AO x 3
Psychological: Calm
Lab / Diagnostic Study Results
12/20/23 05:22
12/20/23 05:22
Abs Immat Gran (auto) 0.1 10^3/uL (0-0.05) H 12/16/23 14:51
Absolute Neuts (auto) 10.7 10^3/uL (1.4-6.5) H 12/16/23 14:51
Absolute Lymphs (auto) 2.4 10^3/uL (1.2-3.4) 12/16/23 14:51
Absolute Monos (auto) 0.8 10^3/uL (0.1-0.6) H 12/16/23 14:51
Absolute Basos (auto) 0.1 10^3/uL (0-0.2) 12/16/23 14:51
Immature Gran % 0.4 % (0-0.5) 12/16/23 14:51
Neutrophils % 76.0 % (42.2-75.2) H 12/16/23 14:51
Lymphocytes % 17.1 % (20.5-51.1) L 12/16/23 14:51
Monocytes % 5.5 % (1.7-9.3) 12/16/23 14:51
Eosinophils % 0.6 % (0-6) 12/16/23 14:51
Basophils % 0.4 % (0-2) 12/16/23 14:51
PT 14.5 Sec (11.4-14.6) 12/18/23 04:41
INR 1.13 12/18/23 04:41
Urine WBC >100 /HPF (0-5) A 12/17/23 05:52
Ur Squamous Epith Cells >30 /LPF (Few) 12/17/23 05:52
Microbiology Results
Micro:
12/17/23 05:52 Urine Culture - Final
Urine NO GROWTH
Imaging:
12/19/2023 Abdominal ultrasound: Ultrasound performed in the left lower quadrant shows a collection measuring 1 point centimeters in diameter, deemed too small for drainage catheter placement.
12/16/2023 CT of the abdomen and pelvis with IV contrast: Findings suggesting recurrent acute diverticulitis with associated abscess formation and probable colovesicular fistula. A collection is noted to be 2.4 x 1.7 x 2.0 cm with phlegmonous
material extending from this to the region of the left ovary, left uterine fundus and bladder.
Assessment / Plan
Recurrent diverticulitis
Leukocytosis; improved
Hypothyroidism
Recurrent diverticulitis/abscess
Anxiety
BMI 37.5
Recommendations:
Patient overall improved on day 5 of Zosyn therapy.
I spoke with her extensively about antibiotic options moving forward. She reports that she had difficulty with the Levaquin/metronidazole course that she previously had, although records indicate that she completed this. She also reports
tolerating Augmentin in the past.
Moving forward, I would recommend transition to Augmentin 875 mg BID, to continue with a 14-day course.
I have noted to her that should she fail this, I would thereafter recommend a course of IV antibiotics, possibly ertapenem, to best get her to a point where she can undergo definitive surgery.
Care Review
Plan reviewed with: Physician (Hospitalist)
--- NOTE | 2023-12-20 12:25 | W.DCSUMMARY ---
Discharge Summary
Discharge Data
Date of Admission: 12/16/23
Date of Discharge: 12/20/23
-
Pending Results: No
Hospital Course
Principal Diagnosis:
Recurrent diverticulitis with associated small abscess and probable colovesical fistula.
Chronic Diagnoses:�
History of diverticulitis
Hypothyroidism
Tobacco Use Disorder
Generalized anxiety, stable.
Obesity due to excess calories, BMI 35
Consultations:�
Colorectal surgery
Urology
Infectious disease
Interventional radiology
Procedures:�
None
Clinical course:�
This is a 47-year-old female, with past medical history as stated above, who presented with left-sided abdominal pain.
Problem 1:
Recurrent diverticulitis with associated small abscess and probable colovesical fistula.
Her CT AP noted recurrent acute diverticulitis with associated abscess formation and probable colovesical fistula.
IR was consulted for abscess aspiration, however according to IR the patient refused aspiration.
The patient received IV antibiotic Zosyn while in the hospital.
She was discharged with Augmentin every 12 hours for 14 days per ID recommendation.
She was able to tolerate low residue diet prior to discharge, and her abdominal pain has largely resolved.
As for the rest of her medical problems, they were stable during her hospital stay.
Discharge Plan
-
Patient Disposition: Home (Routine Discharge)
Discharge Diagnosis/Procedures: Recurrent diverticulitis with associated abscess and probable colovesical fistula
Condition: Fair
Diet: As tolerated
Activity: As tolerated
Driving Restrictions: As prior to admission
Referrals:
Jayro Stephens MD [Active] - in one to two weeks
Shaji Adler MD [Family Provider] - in less than 1 week
Additional Discharge Medication Instructions: Continue antibiotic Augmentin 875 mg twice daily for 14 days.
Prescriptions:
New
amoxicillin-pot clavulanate 875-125 mg tablet
1 tab PO Q12H 14 Days Qty: 28 0RF
Continued
levothyroxine 175 mcg tablet
175 mcg PO DAILY
Visbiome 112.5 billion cell capsule
1 cap PO DAILY Qty: 20 0RF
alprazolam [Xanax] 1 mg tablet
1 mg PO TIDPRN PRN (Reason: anxiety)
Discharge Orders:
Discharge Patient (As Directed); Ordered 12/20/23
Ordered By: Brianne Nina
Discharge Date and Time
Print Language: KISWAHILI
--- NOTE | 2023-12-20 13:28 | CM ---
Pt for discharge
Pt reports she has ride home at discharge
Pt reports having issues with her boyfriend at home - offered info for halfway as alternative to going home. Declined info
Discussed qualifications for SNF level care
Plan - anticipate home no needs
== END 2023-12-20 14:00 | disposition home or self-care (01) | DRG 872 ==
LOC: 2 SOUTH 19:00
PROVIDERS: Registered Nurse; ADMITTING PHYSICIAN Internal Medicine; ATTENDING PHYSICIAN Internal Medicine; CONSULT PHYSICIAN Internal Medicine Infectious Disease; CONSULT PHYSICIAN Specialist; CONSULT PHYSICIAN Surgery; EMERGENCY PHYSICIAN Student in an Organized Health Care Education/Training Program; FAMILY PHYSICIAN Internal Medicine
DX: A41.9 Sepsis, unspecified organism (principal); K57.20 Diverticulitis of large intestine with perforation and abscess without bleeding; N32.1 Vesicointestinal fistula; F17.200 Nicotine dependence, unspecified, uncomplicated; E03.9 Hypothyroidism, unspecified; F41.1 Generalized anxiety disorder; E66.09 Other obesity due to excess calories; Z68.37 Body mass index [BMI] 37.0-37.9, adult
CPT/HCPCS: 74177; 76705; 80048; 80053; 81003; 81015; 83690; 83735; 84703; 85025; 85027; 85610; 87086; 96365; 96375; 99285; Q9967

== ENCOUNTER → 2024-01-28 06:20 | Day surgery (SDC) | payer OTHER, SELFPAY | LOC: GI 06:20 | PROVIDERS: ATTENDING PHYSICIAN Surgery | DX: Z12.11 Encounter for screening for malignant neoplasm of colon (principal); K57.30 Diverticulosis of large intestine without perforation or abscess without bleeding; D12.2 Benign neoplasm of ascending colon; K52.9 Noninfective gastroenteritis and colitis, unspecified | CPT/HCPCS: 45380; 88305 ==

== ENCOUNTER 2024-01-29 06:11 | Inpatient (IN) | payer OTHER, SELFPAY ==
[2024-01-23 13:31] VITALS: BMI 34.2
[2024-01-23 13:58] LABS: Hematocrit 42.4 % (37.0-47.0); Hemoglobin 13.7 g/dL (12.0-16.0); Mean Corp Hgb Conc. 32.3 g/dL (33.0-37.0); Mean Corpuscular Hgb 28.8 pg (27.0-31.0); Mean Corpuscular Volume 89.1 fL (81.0-99.0); Mean Platelet Volume 11.4 fL (7.4-10.4); Platelet Count 353 10^3/uL (130-400); Red Blood Cell Count 4.76 10^6/uL (4.20-5.40); Red Cell Dist. Width 16.7 % (11.5-14.5); White Blood Cell Count 9.9 10^3/uL (4.8-10.8)
[2024-01-23 14:03] LABS: INR 0.95
[2024-01-23 14:04] LABS: APTT 33.1 Sec (23.4-35.0)
[2024-01-23 14:49] LABS: ALT (SGPT) 20 U/L (0-35); AST (SGOT) 20 U/L (14-36); Albumin 4.7 g/dl (3.5-5.0); Alkaline Phosphatase 76 U/L (38-126); Blood Urea Nitrogen 22 mg/dl (7-17); Calcium 9.8 mg/dl (8.4-10.2); Carbon Dioxide 27 mmol/L (22-30); Chloride 103 mmol/L (98-107); Estimated Creatinine Clearance 98 ml/min; Glucose 89 mg/dl (70-99); Potassium 4.6 mmol/L (3.5-5.1); Sodium 143 mmol/L (135-145); Total Bilirubin 0.3 mg/dl (0.2-1.3); eGFR > 60.00
[2024-01-24 08:56] LABS: Glycohemoglobin (HgbA1c) 5.9 % (4.0-5.6)
[2024-01-29] VITALS (20 sets, daily range): BP systolic 0–151; BP diastolic 70–128; BMI 34.2
[2024-01-29] MEDS: NEURONTIN 600 MG PO (06:13)
[2024-01-29] MEDS: TYLENOL 1000 MG PO (06:13)
[2024-01-29] MEDS: ENTEREG 12 MG PO (06:13)
[2024-01-29] MEDS: HEPARIN 5000 UNITS SC (06:13)
--- NOTE | 2024-01-29 14:05 | W.IMMPOSTOP ---
Addendum entered and electronically signed by Jayro Stephens MD 01/29/24 14:16:
Updated patient's daughter, Kaden Casillas, via phone conversation.
Original Note:
Surgical Immed Post Op Note
-
Primary Surgeon: Edwin Stephens MD
Assisting Surgeon: NINA Reid; SAGE Prince
Pre-op Diagnosis: sigmoid diverticulitis with ? of colovesical fistula
Post-op Diagnosis: same
Procedure Performed: 1) robotic sigmoidectomy 2) takedown splenic flexure
Anesthesia Type: general plus local
Specimen / Cultures: sigmoid colon
Estimated Blood Loss: 250 cc
Complications: no immediate
Operative Findings: 1) inflamed proximal sigmoid densely adherent to left pelvic brim/retroperitoneum 2) no obvious fistula to bladder
19 Stevie drain in pelvis.
Bains; ureteral catheters and ureteral ICG by Dr. Mcallister of urology. R stent removed at end of case.
Will send to IMU.
Will consult hospitalist for medical management.
[2024-01-29 14:57] LABS: % Basophils 0.2 % (0-2); % Immature Granulocytes 0.5 % (0-0.5); % Lymphocytes 5.2 % (20.5-51.1); % Monocytes 2.3 % (1.7-9.3); % Neutrophils 91.8 % (42.2-75.2); Absolute Basophils 0.1 10^3/uL (0-0.2); Absolute Immature Granulocytes 0.1 10^3/uL (0-0.05); Absolute Lymphocytes 1.1 10^3/uL (1.2-3.4); Absolute Monocytes 0.5 10^3/uL (0.1-0.6); Absolute Neutrophils 18.7 10^3/uL (1.4-6.5); Hematocrit 40.6 % (37.0-47.0); Hemoglobin 13.1 g/dL (12.0-16.0); Mean Corp Hgb Conc. 32.3 g/dL (33.0-37.0); Mean Corpuscular Hgb 28.7 pg (27.0-31.0); Mean Platelet Volume 10.6 fL (7.4-10.4); Nucleated Red Blood Cells % 0 %; Platelet Count 376 10^3/uL (130-400); Red Blood Cell Count 4.56 10^6/uL (4.20-5.40); Red Cell Dist. Width 16.8 % (11.5-14.5); White Blood Cell Count 20.4 10^3/uL (4.8-10.8)
[2024-01-29 15:15] LABS: Blood Urea Nitrogen 16 mg/dl (7-17); Calcium 8.3 mg/dl (8.4-10.2); Carbon Dioxide 23 mmol/L (22-30); Chloride 106 mmol/L (98-107); Estimated Creatinine Clearance 86 ml/min; Glucose 167 mg/dl (70-99); Magnesium 1.8 mg/dl (1.6-2.3); Potassium 4.7 mmol/L (3.5-5.1); Sodium 140 mmol/L (135-145); eGFR > 60.00
[2024-01-29] MEDS: NORMOSOL-R/PLASMALYTE-A 1000 IV (16:37)
[2024-01-29 17:04] LABS: Glucose - Point of Care 182 mg/dl (70-99)
--- NOTE | 2024-01-29 17:07 | CON.HOSP ---
Consultation
-
Reason for Consultation: Medical management, now change in mental status
Family Physician
-
Family Physician: Shaji Adler MD
Chief Complaint
-
Medical management, now change in mental status
History of Present Illness
48 y/o F with PMHx:
Tobacco abuse disorder
COPD
Obesity due to excess calories
Benzodiazepine abuse (illicit/nonprescription use)
Anxiety
Hypothyroidism
Medical noncompliance
who is POD#0 s/p robotic sigmoidectomy for severe diverticulitis. Internal medicine was consulted for medical management. Prior to the consultation being completed a rapid response was called for change in mental status. As per discussion with
nursing the patient was confused and had a right-sided facial droop and weakness of the right upper extremity. Her symptoms then resolved. She was taken for stat CT scan of the head. Aside from postoperative abdominal pain the patient currently
has no acute complaints. Patient does have a history of benzodiazepine abuse. She states that she takes a Xanax but more than the prescribed dose. She gets extra Xanax from 'her friend.'
Medical History
Past Medical History
Past Medical History: Reports Other
Past Surgical History: Reports Bowel Resection (Robotic sigmoidectomy for severe diverticulitis on 01/29/24)
Social History
Tobacco: Smoker
Alcohol: None
Drug: Other (benzo abuse)
Family History
Family History: Reviewed & Not Pertinent
Allergies / Home Medications
Allergies reflects when Allergies were last updated in [facility].
Home Medications with original date entered in [facility]
Allergy/Medication List:
Allergies
Allergy/AdvReac Type Severity Reaction Status Date / Time
No Known Allergies Allergy Verified 01/29/24 06:02
Home Medications
levothyroxine 175 mcg tablet 175 mcg PO DAILY Thyroid 12/15/21
Lactobac no.2-Bifidobac no.1-S. thermo 112.5 billion cell capsule (Visbiome) 1 cap PO DAILY #20 caps 11/19/23
alprazolam 1 mg tablet (Xanax) 1 mg PO TID 12/16/23
amoxicillin 875 mg-potassium clavulanate 125 mg tablet 1 tab PO Q12H 14 days #28 tabs 12/20/23
metronidazole 500 mg tablet 500 mg PO BID 01/22/24
neomycin 500 mg tablet 1 g PO DIRECTED pre op 01/22/24
polyethylene glycol 3350 17 gram oral powder packet (Miralax) 17 g PO DAILY 01/22/24
sodium sul 1.479 gram-potas ch 0.188 gram-magnes sul 0.225 gram tablet (Sutab) 0 tab PO PER PKG DIR pre op 01/22/24
Review of Systems
-
History Source: Patient
A 12 point Review of Systems was completed except as noted: Yes
Physical Exam
Vital Signs
Vital Signs
Temp Pulse Resp BP Pulse Ox
98.6 F 79 12 118/83 95
01/29/24 16:30 01/29/24 16:00 01/29/24 16:00 01/29/24 16:00 01/29/24 16:00
Physical Exam
General: Other (.)
Laboratory Results
-
Laboratory Results
01/29/24 14:51
01/29/24 14:51
PT 13.0 Sec (11.4-14.6) 01/23/24 12:59
INR 0.95 01/23/24 12:59
APTT 33.1 Sec (23.4-35.0) 01/23/24 12:59
Total Bilirubin 0.3 mg/dl (0.2-1.3) 01/23/24 12:59
AST 20 U/L (14-36) 01/23/24 12:59
ALT 20 U/L (0-35) 01/23/24 12:59
Alkaline Phosphatase 76 U/L (38-126) 01/23/24 12:59
Impression / Plan
-
Gen: NAD, AAOx3.
Eyes: EOMI, PERRLA, no scleral icterus.
Neck: supple.
CV: RRR, +S1/S2, no m/r/g.
Resp: CTAB, no rales, wheezes, or rhonchi.
Abd: absent BS, soft, periumbilical TTP, ND
Skin: No rashes.
Neuro: R-facial droop
Psych: Normal mood and affect.
Severe sigmoid diverticulitis:
-s/p robotic sigmoidectomy 01/29/24
-CRS managing this problem
Change in mental status:
-as per discussion with nursing the patient became less responsive and had a right-sided facial droop and right-sided weakness. Rapid response was called. The patient's symptoms resolved.
-case discussed with Dr. Mercado. He and I both agree CVA is less likely. Patient has a history of benzodiazepine abuse and I suspect the patient had a benzodiazepine withdrawal seizure.
-start Keppra, 2g IV now followed by 1g IV Q12H
-CT brain: No CT evidence for acute intracranial hemorrhage or transcortical infarct.
-seizure precautions
-IV Ativan PRN
-c/s psych for benzo abuse (Dr. Olsen informed of the consult over the phone)
-check MRI brain
Hypothyroidism:
-Patient has been noncompliant with her Levoxyl
-Start IV Synthroid
COPD due to continued tobacco abuse disorder:
-Encourage smoking cessation
-Currently saturating well on room air
-nicotine patch
FULL/SCDs (note, recommend pharmacological DVT prophylaxis as soon as cleared by colorectal surgery)
[2024-01-29] MEDS: TORADOL IV (17:33)
[2024-01-29] MEDS: KEPPRA 2000 MG IV (17:45)
--- NOTE | 2024-01-29 18:24 | PTCARENOTE ---
recieved pt from pacu. see nursing assessment. pt nsr on monitor. was drowsy but awakened to voice, following commands and answering appropriately. at approximately 1700 pt speaking with mother in room and began having temors and pt not answering
questions, staring off and not focusing or answering questions. see rapid response note. nih performed by icu nurse. pt taken for stat ct of head. neuro and hospitalist consulted. pts mother updated by dr Stephens. pt is presently awake and speaking
without difficulty. right hand grasp weaker than left.meds administered per order. abd incisions soledad with surgical glue intact. roxie on right abd drained 5 mls serosanguinous drainage. lee drained 250 mls blood tinged che urine. pt comfortable and
not c/o incisional pain.
[2024-01-29] MEDS: ATIVAN 1 MG IV (18:49)
[2024-01-29] MEDS: LEVOTHROID 130 MCG IV (19:22)
[2024-01-29] MEDS: TORADOL 10 MG IV (21:31)
--- NOTE | 2024-01-29 23:57 | PTCARENOTE ---
Pt AAOx3, forgetful at times. Pt beginning to get agitated, appears very anxious. Tells this RN that she is chronically using xanax at home and it has been too long since she has taken xanax, requests xanax from this RN. No orders exist for this
med. AUTOMATIC TELLER MACHINE SERVICER notified via TT of pt condition and request. COWS assessment performed and documented, result 7. Pt does c/o mild abdominal pain at this time. Denies pain medication. Pt states that diluadid makes her vomit and states that she will need
zofran prior to administration if she does accept pain med in the future. Assessment as documented. Call valera within reach.
--- NOTE | 2024-01-29 23:57 | CON.MD ---
Consultation - Medical
-
48 y/o F with PMH of COPD, hypothyroidism, obesity, anxiety, and suspected benzodiazepene abuse. Admitted for robotic sigmoidectomy for severe diverticulitis. During admission was observed to have R sided facial droop & RUE weakness - seen by neuro
who did not think this was consistent with typical seizure and may be due to possible benzodiazepene w/d.
Pt seen at bedside, chart reviewed. Is quite irritable and has minimal interest in speaking with me outside of discussing her medications (in particular xanax). Pt reports being prescribed xanax 1mg TID for years, however there is no record of this
in PDMP outside of xanax 1mg (21 tabs for 7 days) on 01/24/24 and xanax 1mg (30 tabs for 10 days) on 01/05/24. Pt says that she has a long history of anxiety with anxious distress, racing thoughts, panic attacks. Says has tried many different
medications and 'nothing works except xanax' - has prn ativan currently ordered and says its 'not xanax' and does not help anxiety. Unable to obtain further significant hx as pt perseverating on xanax and being upset by it not being prescribed. Of
note, pt told hospital staff that she is prescribed xanax & also takes extra from a friend, when I attempted to discuss this she because upset and said she takes 1 extra xanax from a neighbor less than once a month (though also says that she is
prescribed TID but takes BID, so would expect her to have enough xanax for each month and longer).
Unspecified anxiety
Suspected benzodiazepene abuse
MSE: somewhat to minimally cooperative,speech is normal rate & rhythm,,mood is anxious, affect is ,irritable, thought process is logical & goal directed though preoccupied with xanax, thought content: denies SI/HI/AVH/delusions. AAOx3. Memory not
formally tested. Insight moderate. Judgement moderate to poor depending on specifics of situation (ie poor regarding benzo use).
Continue Ativan PRN as is currently ordered, would not start xanax unless somehow her report gets verified - monitor for benzo w/d in interim
Will loosely follow
[2024-01-30] VITALS (11 sets, daily range): BP systolic 99–144; BP diastolic 66–105
[2024-01-30] MEDS: ZOFRAN 4 MG IV ×2 (02:46→20:43)
[2024-01-30] MEDS: ATIVAN 0.5 MG IV (02:50)
[2024-01-30] MEDS: DILAUDID 0.25 MG IV (03:14)
--- NOTE | 2024-01-30 03:36 | PTCARENOTE ---
Pt with increased agitation, anxiety. CHIEF NURSING EXECUTIVE notified. OTD ativan given per MAY. Pt c/o nausea, pain. Zofran given per MAY. Diluadid given per MAY. Pt request lesser potent dose due to complaint that diluadid causes increased nausea. Upon routine
assessment, pt's sheets noted to be saturated. Upon inspection, thin orange tube connected to lee catheter leaking bloody tinged urine. CHIEF NURSING EXECUTIVE notified. call center operator urologist notified. Tube wrapped in absorbent pad per suppression crew leader provider suggestion.
[2024-01-30 04:06] LABS: % Basophils 0.1 % (0-2); % Immature Granulocytes 0.5 % (0-0.5); % Lymphocytes 8.2 % (20.5-51.1); % Monocytes 4.7 % (1.7-9.3); % Neutrophils 86.5 % (42.2-75.2); Absolute Immature Granulocytes 0.1 10^3/uL (0-0.05); Absolute Lymphocytes 1.2 10^3/uL (1.2-3.4); Absolute Monocytes 0.7 10^3/uL (0.1-0.6); Absolute Neutrophils 12.8 10^3/uL (1.4-6.5); Hematocrit 35.8 % (37.0-47.0); Hemoglobin 11.6 g/dL (12.0-16.0); Mean Corp Hgb Conc. 32.4 g/dL (33.0-37.0); Mean Corpuscular Hgb 28.7 pg (27.0-31.0); Mean Corpuscular Volume 88.6 fL (81.0-99.0); Mean Platelet Volume 10.8 fL (7.4-10.4); Nucleated Red Blood Cells % 0 %; Platelet Count 334 10^3/uL (130-400); Red Blood Cell Count 4.04 10^6/uL (4.20-5.40); Red Cell Dist. Width 17.1 % (11.5-14.5); White Blood Cell Count 14.8 10^3/uL (4.8-10.8)
[2024-01-30] MEDS: TORADOL 10 MG IV ×2 (04:08→15:25)
[2024-01-30] MEDS: NORMOSOL-R/PLASMALYTE-A 1000 IV ×2 (04:09→15:24)
[2024-01-30 04:13] LABS: Blood Urea Nitrogen 11 mg/dl (7-17); Calcium 8.5 mg/dl (8.4-10.2); Carbon Dioxide 24 mmol/L (22-30); Chloride 109 mmol/L (98-107); Estimated Creatinine Clearance 98 ml/min; Glucose 134 mg/dl (70-99); Magnesium 1.9 mg/dl (1.6-2.3); Potassium 4.7 mmol/L (3.5-5.1); Sodium 141 mmol/L (135-145); eGFR > 60.00
--- NOTE | 2024-01-30 06:37 | W.PN.UPDATE ---
Update Note
Progress Note Update
ctsp for urine leak
remaining ureteral stent had become disconnected from knight and appeared to have been pulled most of the way out
urine clear/cr normal
stent removed/lee left in place
colorectal to see later today
[2024-01-30] MEDS: KEPPRA 1000 MG IV ×2 (08:09→20:45)
[2024-01-30] MEDS: PROTONIX 40 MG PO (08:10)
[2024-01-30] MEDS: ENTEREG 12 MG PO ×2 (08:10→20:44)
[2024-01-30] MEDS: THIAMINE INJECTION 100 MG IV (08:21)
[2024-01-30] MEDS: ATIVAN 1 MG IV ×3 (08:22→15:37)
--- NOTE | 2024-01-30 08:44 | W.PN.CRS1 ---
Today's Communication / Plan
-
as below
Assessment/Plan
-
47-year-old female with hypothyroid, anxiety/depression and recurrent diverticulitis with abscess s/p drainage procedures, who presented for elective surgery
POD 1 robotic sigmoidectomy with splenic flexure takedown, concern for colovesical fistula although none identified intraoperatively
-POD0 code stroke called for facial droop and unilateral weakness, symptoms resolved and CTH negative
Tmax 100.2, VSS
WBC 14.8 from 20.4, Hb 11.6 from 13.1, CR 0.7, UOP 775 mL
�Neurologic symptoms resolved; possible TIA vs transient side-effects of anesthesia
-appreciate hospitalist if further work-up is necessary
�Advance to clears
� Stent removed last night, continue Bains
� Continue pain control with Tylenol, Toradol, Dilaudid as needed, will increase the dose of Dilaudid
� Okay for DVT PPx with Lovenox
� Continue home medications
� OOB/IS
� Appreciate hospitalist consult
Subjective Data
Subjective Data
Date of Service: January 30, 2024
Last night, nurse reported facial droop and unilateral weakness. Code stroke was called. The CT scan was negative. The symptoms resolved.
This morning, the patient feels fine, except for feeling pain 'all over.'
Denies N/V.
Pain not well-controlled.
Denies flatus or BMs. +Bains
Objective Data
-
Vital Signs
Temp Pulse Resp BP Pulse Ox
97.4 F 79 17 106/85 95
01/30/24 07:30 01/30/24 07:07 01/30/24 07:07 01/30/24 07:07 01/30/24 06:00
Intake & Output
01/29/24 01/30/24 01/31/24
06:59 06:59 06:59
Intake Total 320 / 320
Output Total 810 / 810
Balance -490 / -490
Intake:
Oral fluids 120 / 120
IV fluids (Total) 200 / 200
NSS 200 / 200
Output:
Drain Output (Total) /
Right Lower Abdomen Cody-
Ybarra
Urine, Bains 725 / 725
Urine, Voided 50 / 50
Lab Results
01/30/24 03:32
01/30/24 03:32
Physical Exam
-
General: No Acute Distress and AOx3
HEENT: Grossly Normal
Abdomen: Soft, Distended (Mildly distended), Tender (Appropriately tender near incisions), No Guarding, No Rebound and Other (DONY-35 mL serosanguineous)
Skin: Warm and Dry
Wound: No Signs of Infection, Dressing in Place (Dermabond), No Skin Erythema and Other (No drainage)
--- NOTE | 2024-01-30 08:49 | PTCARENOTE ---
On walking rounds , Pt is AAOx3,POD 1 demanding Xanax that is not ordered. Pt has Ativan and was given as ordered. REfused Tylenol and Nicoderm patch. EEG in progress. Ivinfusing a ordered.Pt NPO except ice chips sips of clears. Bains in place .R
roxie rain draining smal at red fluid. 4 Lap sites. Pt in NSR
--- NOTE | 2024-01-30 09:01 | W.PN.UPDATE ---
Update Note
Progress Note Update
I saw and evaluated the patient. I reviewed the resident�s note and agree with findings and plan as documented in the resident�s note.
Gen: NAD, Awake and alert
Eyes: EOMI, PERRLA, no scleral icterus.
Neck: supple.
CV: RRR, +S1/S2, no m/r/g.
Resp: CTAB, no rales, wheezes, or rhonchi.
Abd: absent BS, soft, periumbilical TTP, ND
Skin: No rashes.
Neuro: CN2-12 intact, non-focal
Psych: Normal mood and affect.
Severe sigmoid diverticulitis:
-s/p robotic sigmoidectomy 01/29/24
-CRS managing this problem, discussed with CRS
-clears
Change in mental status:
-as per discussion with nursing the patient became less responsive and had a right-sided facial droop and right-sided weakness 01/29/24PM. Rapid response was called. The patient's symptoms resolved.
-case discussed with Dr. Mercado. He and I both agree CVA is less likely. Patient has a history of benzodiazepine abuse and I suspect the patient had a benzodiazepine withdrawal seizure.
-Keppra 2g IV given 01/29/24PM, cont Keppra 1g IV Q12H
-CT brain: No CT evidence for acute intracranial hemorrhage or transcortical infarct.
-seizure precautions
-IV Ativan PRN
-c/s psych for benzo abuse (Dr. Olsen informed of the consult over the phone)
-check EEG
-neuro following
Hypothyroidism:
-Patient has been noncompliant with her Levoxyl
-cont Synthroid
COPD due to continued tobacco abuse disorder:
-Encourage smoking cessation
-Currently saturating well on room air
-nicotine patch
FULL/Lovenox and SCDs
I have accepted the patient on my service as at this point in time the patient should be on a medicine service. Discussed with colorectal surgery.
Total time spent on today's encounter was 50 minutes which included time spent in counseling the patient/family regarding diagnosis and treatment plan as listed above, goals of care, and symptom management. Case was discussed with nursing staff,
specialists, and care coordinators/case management. All labs and imaging personally reviewed by me. Remainder the time spent in detailed review of previous records, lab data, imaging, and other medical provider documentation.
--- NOTE | 2024-01-30 09:09 | CON.NEURO4 ---
Addendum entered and electronically signed by Duane Mercado MD 01/30/24 15:22:
Studies reviewed.
I have personally examined the patient. I reviewed and agree with the CLEAN UP HELPER BANQUET's Note.
My addenda:
Awake, alert, interactive. No acute distress.
Speech intact. Irritable
Follows 2-step requests w/ mild to moderate difficulty. No tremor.
Extra-ocular movements grossly intact.
Facial movements full and symmetric. Hearing intact to normal conversational volume.
Normal UE movements bilaterally.
Neck: full ROM.
Chest: no dyspnea
Heart: no JVD
Ext: (-) Clubbing, (-) Cyanosis, (-) Edema
IMPRESSIONS/RECOMMENDATIONS:
Abrupt onset of head turn to the right and change in mental status immediately following needed procedure
Most likely due to benzodiazepine withdrawal especially in light of the patient acknowledging prior episodes beginning 3 years ago for which she was placed on antiseizure medication
Initiate routine levetiracetam 1000 mg twice a day. Patient should be considered for an alternative medication if mood decline is described regarding the patient
Will report to [facility], reviewed with the patient
Outpatient psychiatric evaluation for benzodiazepine overexposure
Provide thiamine due to prior history of alcohol overdose in the past
D/W patient
Will continue to follow as needed.
Original Note:
Consultation - Neurology 4
-
CONSULTING PHYSICIAN: Dr. Duane Mercado
REFERRING PHYSICIAN: Dr. Jaleel Ford
DICTATED BY: UNRULY Segal
DATE/TIME OF REQUEST: 01/29/2024, 1708
DATE/TIME OF CONSULTATION: 01/30/2024 0900
Reason for Consultation: possible seizure
History of Present Illness:
This is a 48 year old patient that presented to the ER for elective bowel surgery d/t severe diverticulitis She had acute onset of change in mental status post operatively about 1700, 12/29/2023. Per documentation she was speaking with her mom
when she began having tremors, staring off and stopped answering questions. Right facial droop and right sided weakness was also noted. Rapid response was called. She had stat CT of the head with no CT evidence for acute acute hemorrhage or
transcortical infarct. She was not incontinent of stool though she did just have bowel surgery. She she had Bains present during event. No tongue bite. Symptoms did resolve.She was loaded with Keppra 2 grams.
She has no recollection of yesterdays event today. Today she feels her head is 'fuzzy.' she admits to middle/right posterior throbbing headache moderate to severe in intensity. Denies dizziness. Denies change in vision. Denies neck or back pain.
Reports right arm may feel different but denies weakness. She does complaint of abd pain d/t bowel surgery.
She admits today that she does have a history of seizure about 3 years ago. She was admitted to rehab for benzo abuse and had withdraw seizure. She was placed on Keppra at that time. Unsure when she stopped taking Keppra. Unsure if she saw a
previous neurologist.
She is currently prescribed Xanax but takes extra from a friend per documentation. Last does of Xanax was 01/28/2024, day before starting bowel prep.
Past Medical History:
diverticulitis
Tobacco use
COPD
Obesity due to excess calories
Benzodiazepine abuse prescription and nonprescription use
Anxiety
Hypothyroidism
Medical noncompliance
Surgical History: 01/29/2024-robotic sigmoidectomy with splenic flexure takedown
Family History: reviewed and not pertinent
Social History: currently employed, previous ETOH use, current smoker, hx of benzodiazepine abuse,
Allergies: NKDA
Home Medications: see below
Review of Symptoms:
Patient denies any fever, headache, chest pain, shortness of breath. Reports post surgical abd pain and has Bains
Vital Signs: see below
Physical Exam:
The patient is afebrile, heart sounds S1 and S2 are regular, no dyspnea
Neurologic Examination:
The patient is awake, alert and oriented x 3, speech at times delayed. She is able to follow most commands and answer most questions appropriately. There is no aphasia or dysarthria. On cranial nerve assessment, pupils are 3 mm bilateral, round and
reactive to light and accommodation. Visual diaz are full. Extraocular movements are intact. Facial sensations are intact and bilaterally symmetrical, there is no facial asymmetry. Hearing is intact bilaterally to normal conversation volume.
Tongue palate and uvula are midline. Sternocleidomastoid strengths are full bilaterally. Motor strengths are 5/5 bilateral upper and lower extremities on medical research [place] scale. There is no drift or involuntary movement noted. Deep tendon
reflexes are 3+ bilateral upper and lower extremities and Babinski is absent bilaterally. Sensations of touch and temperature are intact and bilaterally symmetrical. There was no extinction noted on double simultaneous stimulation. Coordination is
intact by finger to nose bilaterally.
Lab Results: see below
Neuro Imaging:CT head 01/29/2024-no CT evidence for acute intracranial hemorrhage or transcortical infarct.
Impression:
ANGY ZUNIGA is a 48 year old F who has presented to the hospital for elective bowel surgery who post-operatively had possible seizure activity likely d/t benzo withdraw, not likely stroke.
Recommendations:
-EEG completed, pending report
-continue Keppra 1000 mg BID, can transition to PO when able
-seizure precautions, monitor for seizure activity
-please call neurology with any additional seizure activity
-agree with psychiatry consultation
-CT head reviewed and unremarkable
-will need outpatient MRI brain with and without contrast
-reviewed with patient that she should not drive and that [employer] paperwork will be filled out
Discussed patient care with patient and Dr. Mercado.
Medication and Allergies
Home Medications
Home Medications
�Medication �Instructions �Recorded
levothyroxine 175 mcg tablet 175 mcg PO DAILY Thyroid 12/15/21
Lactobac no.2-Bifidobac no.1-S. 1 cap PO DAILY #20 caps 11/19/23
thermo 112.5 billion cell capsule
(Visbiome)
alprazolam 1 mg tablet (Xanax) 1 mg PO TID 12/16/23
amoxicillin 875 mg-potassium 1 tab PO Q12H 14 days #28 tabs 12/20/23
clavulanate 125 mg tablet
metronidazole 500 mg tablet 500 mg PO BID 01/22/24
neomycin 500 mg tablet 1 g PO DIRECTED pre op 01/22/24
polyethylene glycol 3350 17 gram 17 g PO DAILY 01/22/24
oral powder packet (Miralax)
sodium sul 1.479 gram-potas ch 0 tab PO PER PKG DIR pre op 01/22/24
0.188 gram-magnes sul 0.225 gram
tablet (Sutab)
Allergies
Allergies
Allergy/AdvReac Type Severity Reaction Status Date / Time
No Known Allergies Allergy Verified 01/29/24 06:02
Vital Signs / Labs
-
Vital Signs and Labs:
Temp Pulse Resp BP Pulse Ox
98.0 F 65 14 105/67 95
01/30/24 11:35 01/30/24 08:00 01/30/24 08:00 01/30/24 08:00 01/30/24 09:43
01/30/24 03:32
01/30/24 03:32
01/29/24 01/29/24 01/30/24
14:51 16:52 03:32
WBC 20.4 H 14.8 H
RBC 4.04 L
Hgb 11.6 L
Hct 35.8 L
MCHC 32.3 L 32.4 L
RDW 16.8 H 17.1 H
MPV 10.6 H 10.8 H
Abs Immat Gran (auto) 0.1 H 0.1 H
Absolute Neuts (auto) 18.7 H 12.8 H
Absolute Lymphs (auto) 1.1 L
Absolute Monos (auto) 0.7 H
Neutrophils % 91.8 H 86.5 H
Lymphocytes % 5.2 L 8.2 L
Chloride 109 H
Glucose 167 H 134 H
Calcium 8.3 L
TSH (Reflex) 14.90 H
POC Glucose 182 H
[2024-01-30 09:30] LABS: Ferritin 46.5 ng/ml (6.24-137)
[2024-01-30 09:53] LABS: Free T4 0.91 ng/dl (0.78-2.19)
[2024-01-30 10:01] LABS: Folate 4.4 ng/ml (2.76-20); Vitamin B12 359 pg/ml (239-931)
[2024-01-30] MEDS: TORADOL IV (10:16)
--- NOTE | 2024-01-30 10:35 | CM ---
Patient seen bedside.
IAS completed.
Patient currently staying with her Mother in [place].
Patient Independent prior to admission.
Patient does not use assistive deices.
Patient drives.
Patient denies insecurities with bills, food or housing.
Patent [facility] for VN and would like services on D/C.
Referral via [facility].
Mother will transport home.
Mothers Address: [address] [place] [address]
[facility]P: [facility] [place]
Pharmacy: [facility]
Plan: home with [facility] when stable.
[facility]
[2024-01-30] MEDS: SYNTHROID 175 MCG PO (10:42)
[2024-01-30 11:16] LABS: Erythrocyte Sed Rate 20 mm/hour (0-20)
--- NOTE | 2024-01-30 15:12 | EEG.RPT ---
Electroencephalogram Report
Recording
Date of EE01/30/24
Type of EEG: Routine
Length of EEG recordin min
Done with Video Recording: Yes
Patient Status: Inpatient
Recording Conditions: Awake, Drowsy and Asleep
Hyperventilation Performed: No
Photic Stimulation Performed: Yes
Report
LESS THAN 1 HOUR EEG INTERPRETATION:
Unremarkable EEG for age
CLINICAL CORRELATION:
A normal EEG does not rule out a diagnosis of epilepsy. If clinical suspicion for seizure persists, a prolonged recording may be warranted.
Clinical correlation is advised.
METHODS:
A 21 channel digitized electroencephalogram (EEG) was performed using the 10/20 international system of electrode placement and one-lead of ECG recorded. The [employer] quantitative EEG system was utilized.
ELECTROENCEPHALOGRAPHER IMPRESSION(S):
Quality of study
Fair to good, limited by muscle artifact
Background
There was an unremarkable anterior-posterior voltage gradient of alpha frequency.
With eye opening the background activity changed to a low voltage mixture of frequencies.
There were no significant asymmetries of background activity noted.
Sleep
Drowsiness present
Stage 1 present
Stage 2 present
Photic Stimulation
No activation
ECG
Normal sinus rhythm
[2024-01-30] MEDS: LOVENOX SC (17:15)
--- NOTE | 2024-01-30 20:30 | PTCARENOTE ---
Resumed care of pt laying in bed AAOx3. pt abrupt onset nausea and vomiting, pt vomited all over the bed. CHG bath provided. Pt OOB to chair, linens on bed changed. Pt assisted back to bed and positioned per comfort. Zofran administered as ordered.
Pt reports abd pain 8/10 PRN pain medication administered as ordered. HR in the 70's in NSR on the monitor. POX 96% on RA. Lungs dec at bases. Pt with frequent non productive cough. Hypo bowel, round dist abd. 4 lap sites open to air, assessed.
Right lower abd DONY drain in place draining serous sangiunous drainage. Palpable peripheral pulses present. Knee high seq in place. Left wrist int leaking, Pt refusing IVF at this time, Pt states 'I am peeing fine, I dont need any more fluid on my
body, Im bloated enough'. AIRCRAFT SERVICER notified. Right wrist int capped. Bains cath in place draining blood tinged urine. Pt now resting comfortably. Will continue to monitor.
[2024-01-30] MEDS: DILAUDID 0.5 MG IV (20:50)
[2024-01-31] VITALS (12 sets, daily range): BP systolic 110–150; BP diastolic 73–109; BMI 33.3
[2024-01-31] MEDS: TORADOL IV (00:09)
--- NOTE | 2024-01-31 02:13 | PTCARENOTE ---
Pt awoke with abrupt onset nausea and vomited large amount of green emesis. Zofran not due at this time. Will continue to monitor.
[2024-01-31] MEDS: ZOFRAN 4 MG IV (02:56)
[2024-01-31] MEDS: TORADOL 10 MG IV ×4 (03:01→21:37)
[2024-01-31] MEDS: NORMOSOL-R/PLASMALYTE-A IV (03:02)
[2024-01-31] MEDS: SYNTHROID 175 MCG PO (05:13)
[2024-01-31 05:23] LABS: % Basophils 0.3 % (0-2); % Eosinophils 1.4 % (0-6); % Immature Granulocytes 0.4 % (0-0.5); % Lymphocytes 18.9 % (20.5-51.1); % Monocytes 4.9 % (1.7-9.3); % Neutrophils 74.1 % (42.2-75.2); Absolute Eosinophils 0.2 10^3/uL (0-0.7); Absolute Immature Granulocytes 0.1 10^3/uL (0-0.05); Absolute Lymphocytes 2.4 10^3/uL (1.2-3.4); Absolute Monocytes 0.6 10^3/uL (0.1-0.6); Absolute Neutrophils 9.3 10^3/uL (1.4-6.5); Hematocrit 35.3 % (37.0-47.0); Hemoglobin 11.2 g/dL (12.0-16.0); Mean Corp Hgb Conc. 31.7 g/dL (33.0-37.0); Mean Corpuscular Hgb 28.7 pg (27.0-31.0); Mean Corpuscular Volume 90.5 fL (81.0-99.0); Mean Platelet Volume 10.7 fL (7.4-10.4); Nucleated Red Blood Cells % 0 %; Platelet Count 302 10^3/uL (130-400); Red Cell Dist. Width 17.2 % (11.5-14.5); White Blood Cell Count 12.6 10^3/uL (4.8-10.8)
[2024-01-31 05:50] LABS: Blood Urea Nitrogen 14 mg/dl (7-17); Calcium 8.6 mg/dl (8.4-10.2); Carbon Dioxide 24 mmol/L (22-30); Chloride 108 mmol/L (98-107); Estimated Creatinine Clearance 113 ml/min; Glucose 118 mg/dl (70-99); Potassium 4.6 mmol/L (3.5-5.1); Sodium 143 mmol/L (135-145); eGFR > 60.00
[2024-01-31] MEDS: NORMOSOL-R/PLASMALYTE-A 1000 IV ×2 (08:29→16:59)
[2024-01-31] MEDS: KEPPRA 1000 MG IV ×2 (08:32→21:27)
[2024-01-31] MEDS: ENTEREG 12 MG PO ×2 (08:32→21:35)
[2024-01-31] MEDS: PROTONIX 40 MG PO (08:33)
[2024-01-31] MEDS: THIAMINE INJECTION 100 MG IV (08:34)
[2024-01-31] MEDS: ATIVAN 1 MG IV ×3 (10:36→18:25)
[2024-01-31] MEDS: OFIRMEV 100 IV ×3 (10:37→21:35)
--- NOTE | 2024-01-31 10:40 | W.PN.HOSP.TC ---
Today's Communication/Plan
-
see bold
Assessment / Plan
Assessment / Plan
Gen: NAD, Awake and alert
Eyes: EOMI, PERRLA, no scleral icterus.
Neck: supple.
CV: Remains RRR, +S1/S2, no m/r/g.
Resp: CTAB anteriorly, no rales, wheezes, or rhonchi.
Abd: absent BS, soft, periumbilical TTP, mild distention
Skin: No rashes.
Neuro: CN2-12 intact, non-focal
Psych: Normal mood and affect.
Severe sigmoid diverticulitis:
-s/p robotic sigmoidectomy 01/29/24
-CRS managing this problem, discussed with CRS
-currently NPO/IVFs
Change in mental status:
-as per discussion with nursing the patient became less responsive and had a right-sided facial droop and right-sided weakness 01/29/24PM. Rapid response was called. The patient's symptoms resolved.
-case discussed with Dr. Mercado. He and I both agree CVA is less likely. Patient has a history of benzodiazepine abuse and I suspect the patient had a benzodiazepine withdrawal seizure.
-Keppra 2g IV given 01/29/24PM, cont Keppra 1g IV Q12H
-CT brain: No CT evidence for acute intracranial hemorrhage or transcortical infarct.
-seizure precautions
-IV Ativan PRN
-c/s psych for benzo abuse (Dr. Olsen informed of the consult over the phone)
-EEG without seizure activity
-neuro following
Hypothyroidism:
-Patient has been noncompliant with her Levoxyl
-cont Synthroid
COPD due to continued tobacco abuse disorder:
-Encourage smoking cessation
-Currently saturating well on room air
-nicotine patch
FULL/Lovenox and SCDs
Anticipated Discharge: > 48 hours
Subjective/Interval History
-
Date of Service: January 31, 2024
No new complaints.
Objective Data
-
Labs:
Laboratory Results
01/31/24
05:02
WBC 12.6 H
Hgb 11.2 L
Hct 35.3 L
Plt Count 302
Sodium 143
Potassium 4.6
Chloride 108 H
Carbon Dioxide 24
BUN 14
Creatinine 0.6
Glucose 118 H
Calcium 8.6
Vital Signs:
Vital Signs
Temp Pulse Resp BP Pulse Ox
98.3 F 79 14 129/95 97
01/31/24 07:00 01/31/24 08:00 01/31/24 08:00 01/31/24 08:00 01/31/24 02:00
I&O
01/30/24 01/31/24 02/01/24
06:59 06:59 06:59
Intake Total 320 / 320 960 / 960
Output Total 810 / 810 870 / 870
Balance -490 / -490 90 / 90
--- NOTE | 2024-01-31 11:52 | PTCARENOTE ---
Patient's lee catheter removed this AM by blasting worker RN. Patient voided 200 mls in commode and was INC x1. Ativan given for anxiety as per MD order. VS stable, afebrile. Patient calling for nurse appropriately. NPO except for meds and ice
chips. Patient denies any nausea at this time.
--- NOTE | 2024-01-31 12:24 | W.PN.CRS1 ---
Today's Communication / Plan
-
As below
Assessment/Plan
-
47-year-old female with hypothyroid, anxiety/depression and recurrent diverticulitis with abscess s/p drainage procedures, who presented for elective surgery
POD 2 robotic sigmoidectomy with splenic flexure takedown, concern for colovesical fistula although none identified intraoperatively
-POD0 code stroke called for facial droop and unilateral weakness, symptoms resolved and CTH negative; per neuro- likely benzo withdrawal
AFVSS
WBC 12.6 from 14.8, Hb 11.2 from 11.6, Cr 0.7, UOP 775 mL
�Neurologic symptoms resolved; per neuro- likely benzo withdrawal, start keppra for Sz ppx
�Back down to NPO with IVF
-Will obtain AXR to rule out ileus
� Bains removed by nursing
� Continue pain control with Tylenol, Toradol, Dilaudid as needed
� Cont DVT PPx with Lovenox
� Continue home medications
� OOB/IS
�Okay to transfer to [address] [place] [address]
� Appreciate hospitalist consult
Subjective Data
Subjective Data
Date of Service: January 31, 2024
Overnight, patient vomited twice. Not feeling nauseous this morning.
Pain controlled.
-flatus -BMs +voiding
Pt is OOB.
Objective Data
-
Vital Signs
Temp Pulse Resp BP Pulse Ox
98.1 F 71 14 110/94 95
01/31/24 12:10 01/31/24 12:00 01/31/24 12:00 01/31/24 11:30 01/31/24 10:45
Intake & Output
01/30/24 01/31/24 02/01/24
06:59 06:59 06:59
Intake Total 320 / 320 960 / 960
Output Total 810 / 810 870 / 870
Balance -490 / -490 90 / 90
Intake:
Oral fluids 120 / 120
IV fluids (Total) 200 / 200 960 / 960
NSS 200 / 200
Output:
Drain Output (Total) 120 / 120
Right Lower Abdomen Cody- 120 / 120
Ybarra
Urine, Bains 725 / 725 750 / 750
Urine, Voided 50 / 50
Other:
Number of immeasurable emeses? 2
Lab Results
01/31/24 05:02
01/31/24 05:02
Physical Exam
-
General: No Acute Distress
HEENT: Grossly Normal
Abdomen: Soft, Distended (Mildly to moderately distended, not tympanitic), Tender (Appropriately tender near incisions), No Guarding and No Rebound
Wound: No Signs of Infection, Dressing in Place (Dermabond) and No Skin Erythema
--- NOTE | 2024-01-31 13:55 | PTCARENOTE ---
Patient has not reported any nausea or vomiting. NPO except for medications and ice chips. IV fluids infusing as ordered via left FA. Patient urinated again 150mls of blood tinged urine.
[2024-01-31] MEDS: NSS (PRESERVATIVE FREE) 0.5 ML IV (14:20)
--- NOTE | 2024-01-31 16:06 | PTCARENOTE ---
Report given to Sue DOMÍNGUEZ. Patient transferred to [address] [place] [address] in bed. All belongings with the patient.
[2024-01-31] MEDS: LOVENOX SC (17:13)
--- NOTE | 2024-01-31 19:27 | PTCARENOTE ---
pt transfer from [facility] ~[id number]. AOx3, self in room. Norm R 80 via 22 LFA. NPO no c/o N/V. pt refuses SCD's and Lovenox, states she understands reasoning/implications nurse is teaching but will not comply.
[2024-02-01] MEDS: NSS (PRESERVATIVE FREE) 0.5 ML IV ×2 (02:37→22:46)
[2024-02-01] MEDS: ATIVAN 1 MG IV ×3 (02:40→22:46)
[2024-02-01] MEDS: TORADOL 10 MG IV ×4 (03:33→22:37)
[2024-02-01] MEDS: ANESTHETIC LOZENGE 1 LOZENGE PO (03:36)
[2024-02-01] MEDS: OFIRMEV 100 IV ×3 (03:37→22:38)
[2024-02-01 05:51] LABS: Hematocrit 33.8 % (37.0-47.0); Hemoglobin 10.9 g/dL (12.0-16.0); Mean Corp Hgb Conc. 32.2 g/dL (33.0-37.0); Mean Corpuscular Hgb 29.3 pg (27.0-31.0); Mean Corpuscular Volume 90.9 fL (81.0-99.0); Mean Platelet Volume 11.2 fL (7.4-10.4); Platelet Count 299 10^3/uL (130-400); Red Blood Cell Count 3.72 10^6/uL (4.20-5.40); White Blood Cell Count 10.7 10^3/uL (4.8-10.8)
[2024-02-01] MEDS: SYNTHROID 175 MCG PO (05:54)
[2024-02-01] MEDS: NORMOSOL-R/PLASMALYTE-A 1000 IV ×2 (05:59→15:34)
[2024-02-01 06:00] VITALS: BMI 32.6
[2024-02-01 06:27] LABS: Blood Urea Nitrogen 10 mg/dl (7-17); Calcium 8.1 mg/dl (8.4-10.2); Carbon Dioxide 25 mmol/L (22-30); Chloride 105 mmol/L (98-107); Estimated Creatinine Clearance 113 ml/min; Glucose 90 mg/dl (70-99); Magnesium 1.8 mg/dl (1.6-2.3); Potassium 4.3 mmol/L (3.5-5.1); Sodium 140 mmol/L (135-145); eGFR > 60.00
[2024-02-01 07:45] VITALS: BP 149/100
--- NOTE | 2024-02-01 08:19 | W.PN.HOSP.TC ---
Today's Communication/Plan
-
see bold
Assessment / Plan
Assessment / Plan
Gen: NAD, Awake and alert
Eyes: EOMI, PERRLA, no scleral icterus.
Neck: supple.
CV: Continues to remain RRR, +S1/S2, no m/r/g.
Resp: Remains CTAB anteriorly, no rales, wheezes, or rhonchi.
Abd: Hypoactive BS, soft, nontender to light palpation, mild distention
Skin: No rashes.
Neuro: CN2-12 intact, non-focal
Psych: Normal mood and affect.
Abd Xray 01/31/24: Diffuse gaseous distention of the small bowel and proximal colon, favoring postoperative ileus.
Severe sigmoid diverticulitis:
-s/p robotic sigmoidectomy 01/29/24
-CRS managing this problem, discussed with CRS
-currently NPO/IVFs
Change in mental status:
-as per discussion with nursing the patient became less responsive and had a right-sided facial droop and right-sided weakness 01/29/24PM. Rapid response was called. The patient's symptoms resolved.
-case discussed with Dr. Mercado. He and I both agree CVA is less likely. Patient has a history of benzodiazepine abuse and I suspect the patient had a benzodiazepine withdrawal seizure.
-Keppra 2g IV given 01/29/24PM, cont Keppra 1g IV Q12H
-CT brain: No CT evidence for acute intracranial hemorrhage or transcortical infarct.
-seizure precautions
-taper IV Ativan PRN
-psych saw in c/s
-EEG without seizure activity
-neuro following
Hypothyroidism:
-Patient has been noncompliant with her Levoxyl
-cont Synthroid
COPD due to continued tobacco abuse disorder:
-Encourage smoking cessation
-Currently saturating well on room air
-nicotine patch
FULL/Lovenox and SCDs
Anticipated Discharge: 24 - 48 hours
Subjective/Interval History
-
Date of Service: February 01, 2024
No new complaints. States she may be passing flatus. No bowel movement.
Objective Data
-
Labs:
Laboratory Results
02/01/24
04:49
WBC 10.7
Hgb 10.9 L
Hct 33.8 L
Plt Count 299
Sodium 140
Potassium 4.3
Chloride 105
Carbon Dioxide 25
BUN 10
Creatinine 0.6
Glucose 90
Calcium 8.1 L
Vital Signs:
Vital Signs
Temp Pulse Resp BP Pulse Ox
98.0 F 74 14 149/100 96
02/01/24 07:45 02/01/24 07:45 02/01/24 07:45 02/01/24 07:45 02/01/24 07:45
I&O
01/31/24 02/01/24 02/02/24
06:59 06:59 06:59
Intake Total 960 / 960 840 / 840
Output Total 870 / 870 610 / 610
Balance 90 / 90 230 / 230
[2024-02-01] MEDS: ENTEREG 12 MG PO ×2 (08:42→20:44)
[2024-02-01] MEDS: THIAMINE INJECTION 100 MG IV (08:43)
[2024-02-01] MEDS: PROTONIX 40 MG PO (08:44)
[2024-02-01] MEDS: KEPPRA 1000 MG IV ×2 (08:45→20:45)
--- NOTE | 2024-02-01 14:16 | W.PN.CRS1 ---
Addendum entered and electronically signed by Remington Celestin MD 02/01/24 14:25:
I saw and examined the patient.
The BAND CUTTING MACHINE OPERATOR's note was reviewed and I agree with the note.
Comment:
47-year-old female with hypothyroid, anxiety/depression and recurrent diverticulitis with abscess s/p drainage procedures, who presented for elective surgery
POD 3 robotic sigmoidectomy with splenic flexure takedown, concern for colovesical fistula although none identified intraoperatively
-POD0 code stroke called for facial droop and unilateral weakness, symptoms resolved and CTH negative; per neuro- likely benzo withdrawal
-currently with slow return of bowel function
AFVSS, ABD soft, mildly to moderately distended, appropriately tender, no rebound or guarding, incisions well-approximated without erythema or drainage
WBC 10.7 from 12.6, Hb 10.9 from 11.2, Cr 0.6
�Slow return of bowel function
�Continue n.p.o. with IVF
�Neurologic symptoms resolved; per neuro- likely benzo withdrawal, start keppra for Sz ppx
� Continue pain control with Tylenol, Toradol, Dilaudid as needed
� Cont DVT PPx with Lovenox
� Continue home medications
� OOB/IS
� Appreciate hospitalist consult
Original Note:
Today's Communication / Plan
-
NPO/IVF
OOB/ambulate
Assessment/Plan
-
47-year-old female with hypothyroid, anxiety/depression and recurrent diverticulitis with abscess s/p drainage procedures, who presented for elective surgery
POD 3 robotic sigmoidectomy with splenic flexure takedown, concern for colovesical fistula although none identified intraoperatively
-POD0 code stroke called for facial droop and unilateral weakness, symptoms resolved and CTH negative; per neuro- likely benzo withdrawal
AFVSS
WBC 10.7 from 12.6, Hb 10.9 from 11.2, Cr 0.6
Acute on chronic anemia secondary to expected losses and hemodilution
Ileus present, await return of bowel function
�Neurologic symptoms resolved; per neuro- likely benzo withdrawal, start keppra for Sz ppx
�Continue NPO with IVF until return of bowel function
� Continue pain control with Tylenol, Toradol, Dilaudid as needed
� Cont DVT PPx with Lovenox
� Continue home medications
� OOB/IS
� Appreciate hospitalist consult
Subjective Data
Subjective Data
Date of Service: February 01, 2024
Patient seen and examined at bedside with Dr. Celestin. Denies nausea or vomiting. Not passing flatus or stools as of yet. Abdominal pain present but manageable. Voiding well.
Objective Data
-
Vital Signs
Temp Pulse Resp BP Pulse Ox
98.0 F 74 14 149/100 96
02/01/24 07:45 02/01/24 07:45 02/01/24 07:45 02/01/24 07:45 02/01/24 13:16
Intake & Output
01/31/24 02/01/24 02/02/24
06:59 06:59 06:59
Intake Total 960 / 960 840 / 840 240 / 240
Output Total 870 / 870 610 / 610 60 / 60
Balance 90 / 90 230 / 230 180 / 180
Intake:
Oral fluids 120 / 120
IV fluids (Total) 960 / 960 520 / 520 240 / 240
IV piggybacks 200 / 200
Output:
Drain Output (Total) 120 / 120 310 / 310 60 / 60
Right Lower Abdomen Cody- 120 / 120 310 / 310 60 / 60
Ybarra
Urine, Bains 750 / 750
Urine, Voided 300 / 300
Other:
Number of approximated MODERATE 2 1
amounts of urine
How many times incontinent 4
SMALL amount urine
How many times incontinent 1
MODERATE amount urine
Number of immeasurable emeses? 2
Lab Results
02/01/24 04:49
02/01/24 04:49
Physical Exam
-
General: No Acute Distress
HEENT: Grossly Normal
Abdomen: Soft, Distended (moderately distended, not tympanitic), Tender (Appropriately tender near incisions), No Guarding and No Rebound
Wound: No Signs of Infection, Dressing in Place (Dermabond) and No Skin Erythema
Data Reviewed
-
Diagnostic Radiology: Image Reviewed (ABD xr from 01/30 with gaseous distention consistent with ileus) and Report Reviewed
[2024-02-01 15:05] VITALS: BP 141/100
[2024-02-01] MEDS: LOVENOX SC (16:43)
[2024-02-01 23:17] VITALS: BP 143/95
[2024-02-02] MEDS: OFIRMEV IV (05:45)
[2024-02-02] MEDS: TORADOL IV (05:45)
[2024-02-02 05:46] LABS: Hemoglobin 11.3 g/dL (12.0-16.0); Mean Corp Hgb Conc. 31.4 g/dL (33.0-37.0); Mean Corpuscular Hgb 28.3 pg (27.0-31.0); Mean Corpuscular Volume 90.2 fL (81.0-99.0); Mean Platelet Volume 10.6 fL (7.4-10.4); Platelet Count 336 10^3/uL (130-400); Red Blood Cell Count 3.99 10^6/uL (4.20-5.40); Red Cell Dist. Width 16.7 % (11.5-14.5); White Blood Cell Count 9.6 10^3/uL (4.8-10.8)
[2024-02-02 06:00] VITALS: BMI 32.5
[2024-02-02 06:06] LABS: Blood Urea Nitrogen 9 mg/dl (7-17); Calcium 8.6 mg/dl (8.4-10.2); Carbon Dioxide 24 mmol/L (22-30); Chloride 105 mmol/L (98-107); Estimated Creatinine Clearance 112 ml/min; Glucose 95 mg/dl (70-99); Magnesium 1.9 mg/dl (1.6-2.3); Potassium 4.2 mmol/L (3.5-5.1); Sodium 140 mmol/L (135-145); eGFR > 60.00
[2024-02-02] MEDS: SYNTHROID 175 MCG PO (06:15)
[2024-02-02 07:36] VITALS: BP 149/93
--- NOTE | 2024-02-02 07:44 | W.PN.HOSP.TC ---
Addendum entered and electronically signed by Mely Hathaway MD 02/02/24 16:23:
I saw and evaluated the patient independently. I reviewed the resident�s note and agree with findings and plan as documented by Dr. Chaney.
GENERAL: well developed, well nourished, female in no apparent distress
HEENT: NC/AT -- no O2 requirements
HEART: regular rate and rhythm, +S1, +S2
LUNGS : clear to auscultation bilaterally
ABDOM: soft, nontender, nondistended, + bowel sounds--DONY drain in place
EXT: no cyanosis, clubbing, or edema
NEUROLOGIC: grossly intact
Severe sigmoid diverticulitis--S/p robotic sigmoidectomy with splenic flexure takedown 01/28--tolerating diet--DONY drain to be pulled at d/c--apprec CRS--can d/c when cleared by them--likely in AM
Change in mental status--Right facial droop with right UE weakness 01/28 resolved�CT head negative--suspect benzo WD seizure--cont keppra--apprec neuro/psych
Hypothyroidism--TSH 14.9--unclear if pt compliant with meds--cont synthroid for now and repeat TSH in 4 weeks if pt actually taking the med
COPD--Currently breathing room air, saturating 97%--Nicotine patch---Encourage smoking cessation--no acute exacerbation
DVT PPx-Lovenox
CODE STATUS: Full code
anticipate d/c tomorrow
Original Note:
Today's Communication/Plan
-
Diet advanced to low residue
Discontinue IV lines and change IV meds to oral
Continue Keppra
Monitor closely for benzodiazepine withdrawal
Pain management
Assessment / Plan
Assessment / Plan
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 While in the hospital she developed
acute right facial droop with right upper extremity weakness which resolved without intervention.
Assessment/plan:
#Severe sigmoid diverticulitis
-S/p robotic sigmoidectomy with splenic flexure takedown 01/28 POD #4.
-Advanced diet to low residue, patient tolerated.
-Pain control with Toradol, Tylenol and Dilaudid as needed.
-DONY drain in place, draining total 105 ml overnight, d/c before discharge.
-Change IV meds to oral.
-Follow I's and O's, daily weights.
-Colorectal following and appreciated.
-Advance diet as tolerated.
#Change in mental status
-Right facial droop with right UE weakness 01/28 resolved�CT head negative.
-Suspect benzodiazepine withdrawal seizure; EEG without seizure activities.
-Keppra 1 g PO Q 12H per neurology.
-Continue Ativan PRN per psych.
-Seizure precautions.
-Psych following.
-Neuro following.
#Hypothyroidism
-Continue Synthroid
#COPD
-Currently breathing room air, saturating 97%.
-Nicotine patch.
-Encourage smoking cessation
Hypothyroidism:
-Patient has been noncompliant with her Levoxyl
-cont Synthroid
DVT PPx-Lovenox
CODE STATUS: Full code
Anticipated Discharge: 24 - 48 hours
Subjective/Interval History
-
Date of Service: February 02, 2024
I have seen and examined the patient. Reports that she had bowel movement which was greenish/black. Nursing reports that she does not take her Lovenox, and she is not IV fluid. When seen at bedside, patient was ambulating on room air and
saturating appropriately. She does not have any chest pain, shortness of breath, palpitations, fever or chills. I discussed with her the importance of getting her Lovenox given her hypercoagulable state of recent surgery and immobility while in
the hospital. Her drain output is 80 ml overnight and currently additional 25 mL serosanguineous fluid. She reports that she had mild pain around the drain area which has resolved. She was preoccupied with getting Xanax and extra Ativan.
Objective Data
-
Labs:
Laboratory Results
02/02/24
05:36
WBC 9.6
Hgb 11.3 L
Hct 36.0 L
Plt Count 336
Sodium 140
Potassium 4.2
Chloride 105
Carbon Dioxide 24
BUN 9
Creatinine 0.6
Glucose 95
Calcium 8.6
Vital Signs:
Vital Signs
Temp Pulse Resp BP Pulse Ox
97.7 F 60 17 149/93 97
02/02/24 07:36 02/02/24 07:36 02/02/24 07:36 02/02/24 07:36 02/02/24 07:36
I&O
02/01/24 02/02/24 02/03/24
06:59 06:59 06:59
Intake Total 840 / 840 1660 / 1660
Output Total 610 / 610 220 / 220
Balance 230 / 230 1440 / 1440
Review of Systems
-
History Source: Patient
All other systems: Not reviewed unless documented
Constitutional: Reports No Symptoms; Denies Fever, Fatigue, Night Sweats or Chills
EENT: Reports No Symptoms Reported
Respiratory: Reports No Symptoms; Denies Cough, Trouble Breathing or Wheezing
Cardiac: Reports No Symptoms; Denies Chest Pain or Palpitations
Abdomen/GI: Reports Abdominal Pain (mild); Denies Diarrhea, Constipated, Bloody Stools or Black Stools
Genitourinary: Reports No Symptoms
Musculoskeletal: Reports No Symptoms
Skin: Reports No Symptoms
Physical Exam
-
General: No Apparent Distress and Comfortable; Negative Fever or Chills
HEENT: Anicteric
Respiratory: Clear to Auscultation; Negative Wheezes or Crackles
Cardiac: Regular Rhythm and S1/S2; Negative Murmur or Rub
GI: Soft and Tender (Around drain area)
Skin: Warm
Neuro: Awake, Alert and AO x 3
Psych: Calm
Data Reviewed
-
Diagnostic Radiology: Image personally visualized and interpreted, Report Reviewed by me and Discussed with Physician
CT Scan: Report Reviewed by me and Discussed with Physician
Ultrasound: Report Reviewed by me and Discussed with Physician
Labs: Labs Reviewed by me
Old Records: Reviewed
[2024-02-02] MEDS: KEPPRA 1000 MG IV (09:34)
[2024-02-02] MEDS: PROTONIX 40 MG PO (09:34)
[2024-02-02] MEDS: ENTEREG 12 MG PO ×2 (09:34→20:28)
[2024-02-02] MEDS: OFIRMEV 100 IV (09:35)
[2024-02-02] MEDS: TORADOL 10 MG IV (09:35)
[2024-02-02] MEDS: NORMOSOL-R/PLASMALYTE-A IV (09:38)
--- NOTE | 2024-02-02 11:36 | W.PN.CRS1 ---
Today's Communication / Plan
-
low residue diet
d/c ivfs
Assessment/Plan
-
47-year-old female with hypothyroid, anxiety/depression and recurrent diverticulitis with abscess s/p drainage procedures, who presented for elective surgery
POD 4 robotic sigmoidectomy with splenic flexure takedown, concern for colovesical fistula although none identified intraoperatively
-POD0 code stroke called for facial droop and unilateral weakness, symptoms resolved and CTH negative; per neuro- likely benzo withdrawal
AFVSS
WBC 9.6, Hb 11.3 from 10.9, Cr 0.6
Acute on chronic anemia secondary to expected losses and hemodilution
Ileus present, await return of bowel function
�Neurologic symptoms resolved; per neuro- likely benzo withdrawal, start keppra for Sz ppx
�Start on a low residue diet with ensure
- D/C IVFs when tolerating a diet
� Continue pain control with Tylenol, Toradol, Dilaudid as needed
� Cont DVT PPx with Lovenox
� Continue home medications
� OOB/IS
� Appreciate hospitalist consult
- Removal of DONY drain prior to discharge
Subjective Data
Subjective Data
Date of Service: February 02, 2024
Patient states she is having bowel movements. She denies nausea or vomiting. She is not sure if she is hungry. She has no other complaints.
Objective Data
-
Vital Signs
Temp Pulse Resp BP Pulse Ox
97.7 F 60 17 149/93 97
02/02/24 07:36 02/02/24 07:36 02/02/24 07:36 02/02/24 07:36 02/02/24 07:36
Intake & Output
02/01/24 02/02/24 02/03/24
06:59 06:59 06:59
Intake Total 840 / 840 1660 / 1660
Output Total 610 / 610 220 / 220
Balance 230 / 230 1440 / 1440
Intake:
Oral fluids 120 / 120 360 / 360
IV fluids (Total) 520 / 520 1200 / 1200
IV piggybacks 200 / 200 100 / 100
Output:
Drain Output (Total) 310 / 310 220 / 220
Right Lower Abdomen Cody- 310 / 310 220 / 220
Ybarra
Urine, Voided 300 / 300
Other:
Number of approximated MODERATE 2 2
amounts of urine
How many times incontinent 4
SMALL amount urine
How many times incontinent 1
MODERATE amount urine
Lab Results
02/02/24 05:36
02/02/24 05:36
Physical Exam
-
General: No Acute Distress and AOx3
Abdomen: Soft, Non Distended, Non Tender and Other (DONY serous)
Skin: Warm and Dry
Wound: No Signs of Infection
--- NOTE | 2024-02-02 14:34 | PTCARENOTE ---
Patient ambulating in room with a steady gait, patient has tenders of abdomen, scheduled Toradol given with good relief. Patient tolerating Low residue diet, patient had soft formed BM.
--- NOTE | 2024-02-02 14:37 | CM ---
Patient seen at bedside with physicians. Patient stated that she would like to go home with [facility] and [facility] awaiting discharge. Patient stated that she has a ride home and that she does not anticipate any discharge problems. CM will continue to
follow for discharge planning needs.
Plan; home with [facility] VN; [phone]
[2024-02-02 15:29] VITALS: BP 132/83
[2024-02-02] MEDS: LOVENOX 40 MG SC (17:55)
[2024-02-02] MEDS: KEPPRA 1000 MG PO (20:28)
[2024-02-02 23:33] VITALS: BP 142/89
[2024-02-03 05:32] LABS: Hematocrit 33.5 % (37.0-47.0); Hemoglobin 10.8 g/dL (12.0-16.0); Mean Corp Hgb Conc. 32.2 g/dL (33.0-37.0); Mean Corpuscular Hgb 28.6 pg (27.0-31.0); Mean Corpuscular Volume 88.9 fL (81.0-99.0); Platelet Count 312 10^3/uL (130-400); Red Blood Cell Count 3.77 10^6/uL (4.20-5.40)
[2024-02-03] MEDS: SYNTHROID 175 MCG PO (05:35)
[2024-02-03 05:49] LABS: Blood Urea Nitrogen 14 mg/dl (7-17); Calcium 8.7 mg/dl (8.4-10.2); Carbon Dioxide 24 mmol/L (22-30); Chloride 105 mmol/L (98-107); Estimated Creatinine Clearance 111 ml/min; Glucose 106 mg/dl (70-99); Potassium 4.1 mmol/L (3.5-5.1); Sodium 142 mmol/L (135-145); eGFR > 60.00
--- NOTE | 2024-02-03 07:47 | W.PN.HOSP.TC ---
Addendum entered and electronically signed by Mely Hathaway MD 02/03/24 19:51:
severe protein calorie malnutrition also noted
Addendum entered and electronically signed by Mely Hathaway MD 02/03/24 14:38:
I saw and evaluated the patient independently. I reviewed the resident�s note and agree with findings and plan as documented by Dr. Chaney.
GENERAL: well developed, well nourished, female in no apparent distress
HEENT: NC/AT -- no O2 requirements
HEART: regular rate and rhythm, +S1, +S2
LUNGS : clear to auscultation bilaterally
ABDOM: soft, nontender, nondistended, + bowel sounds--DONY drain in place
EXT: no cyanosis, clubbing, or edema
NEUROLOGIC: grossly intact
Severe sigmoid diverticulitis--S/p robotic sigmoidectomy with splenic flexure takedown 01/28--tolerating diet--DONY drain to be pulled at d/c--apprec CRS--OK for d/c
Change in mental status--Right facial droop with right UE weakness 01/28 resolved�CT head negative--suspect benzo WD seizure--cont keppra--apprec neuro/psych
Hypothyroidism--TSH 14.9--unclear if pt compliant with meds, pt states she has not been--cont synthroid for now and repeat TSH in 4 weeks
COPD--Currently breathing room air, saturating 97%--Nicotine patch---Encourage smoking cessation--no acute exacerbation
DVT PPx-Lovenox
CODE STATUS: Full code
Original Note:
Today's Communication/Plan
-
Continue Synthroid
Discharge planning
Assessment / Plan
Assessment / Plan
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 While in the hospital she developed
acute right facial droop with right upper extremity weakness which resolved without intervention.
Assessment/plan:
#Severe sigmoid diverticulitis
-S/p robotic sigmoidectomy with splenic flexure takedown 01/28 POD #5.
-DONY drain removed today.
-Continue low residue diet.
-Pain control with Toradol, Tylenol and Dilaudid as needed.
-Colorectal appreciated.
#Weight loss
-13.3% weight loss over 3 months.
-Most likely due to inadequate caloric intake vs malabsorption.
-Most likely improve with procedure.
-Encourage better caloric intake.
#Change in mental status
-Right facial droop with right UE weakness 01/28 resolved�CT head negative.
-Suspect benzodiazepine withdrawal seizure; EEG without seizure activities.
-Continue Keppra 1 g PO Q 12H.
-Seizure precautions.
#Hypothyroidism
-TSH 14.9.
-Patient not compliant with levothyroxine and understands the implication.
-Will continue Synthroid at this dose.
-Recheck TSH in 4 to 6 weeks when taking meds and adjust dose as needed.
#COPD
-Currently breathing room air, saturating 97%.
-Patient declined nicotine patch.
-Encourage smoking cessation, patient stated she can quit when she wants.
DVT PPx-Lovenox
CODE STATUS: Full code
Anticipated Discharge: Today
Subjective/Interval History
-
Date of Service: February 03, 2024
I have seen and examined the patient today at bedside in no acute cardiopulmonary distress. Reports that she has been having diarrhea but no dizziness, abdominal pain, fever or chills. Her chest tube was draining 30 mL serosanguineous fluid. She
denies chest pain, shortness of breath, nausea and vomiting.
Objective Data
-
Labs:
Laboratory Results
02/03/24
04:55
WBC 9.0
Hgb 10.8 L
Hct 33.5 L
Plt Count 312
Sodium 142
Potassium 4.1
Chloride 105
Carbon Dioxide 24
BUN 14
Creatinine 0.6
Glucose 106 H
Calcium 8.7
Vital Signs:
Vital Signs
Temp Pulse Resp BP Pulse Ox
98.9 F 65 20 142/89 98
02/02/24 23:33 02/02/24 23:33 02/02/24 23:33 02/02/24 23:33 02/02/24 23:33
I&O
02/02/24 02/03/24 02/04/24
06:59 06:59 06:59
Intake Total 1660 / 1660 480 / 480
Output Total 220 / 220 100 / 100
Balance 1440 / 1440 380 / 380
Review of Systems
-
History Source: Patient
All other systems: Not reviewed unless documented
Constitutional: Reports No Symptoms; Denies Fever, Fatigue, Night Sweats or Chills
EENT: Reports No Symptoms Reported
Respiratory: Reports No Symptoms; Denies Cough, Trouble Breathing or Wheezing
Cardiac: Reports No Symptoms; Denies Chest Pain or Palpitations
Abdomen/GI: Reports Abdominal Pain (mild); Denies Diarrhea, Constipated, Bloody Stools or Black Stools
Genitourinary: Reports No Symptoms
Musculoskeletal: Reports No Symptoms
Skin: Reports No Symptoms
Physical Exam
-
General: No Apparent Distress and Comfortable; Negative Fever or Chills
HEENT: Anicteric
Respiratory: Clear to Auscultation; Negative Wheezes or Crackles
Cardiac: Regular Rhythm and S1/S2; Negative Murmur or Rub
GI: Soft and Tender (Around drain area)
Skin: Warm
Neuro: Awake, Alert and AO x 3
Psych: Calm
Data Reviewed
-
Diagnostic Radiology: Image personally visualized and interpreted, Report Reviewed by me and Discussed with Physician
CT Scan: Report Reviewed by me and Discussed with Physician
Ultrasound: Report Reviewed by me and Discussed with Physician
Labs: Labs Reviewed by me
Old Records: Reviewed
[2024-02-03 07:50] VITALS: BP 151/93
--- NOTE | 2024-02-03 09:05 | PN.CDI ---
CDI
- -
CDI:
Physician Documentation Request
Admit Date: 01/29/24 06:11
Dear Doctor Shiv,
Patient admitted with sever diverticulitis s/p robotic sigmoidectomy with splenic flexure takedown.
01/30 Nutrition assessment, 'Pt meets criteria for severe protein calorie malnutrition of chronic illness with >7.5% in 3 months with prolonged inadequate intake.
Please provide in your note the diagnosis associated with the above findings and your assessment:
Severe protein calorie malnutrition
Other (please specify)
Tama Criteria ([facility]ist 2017)
2 or more criteria must be present for either
non severe or severe malnutrition
Note that the criteria differs related to the
presence of an acute or chronic illness
Chronic Illness
Energy Intake Non Severe: <75% for >1 month
Severe: <75% for >1 month
Weight Loss Non Severe: 5% over 1 month
7.5% over 3 months
10% over 6 months
20% over 1 year
Severe: >5% over 1 month
>7.5% over 3 months
>10% over 6 months
>20% over 1 year
Body Fat Non Severe: Mild Loss
Severe: Severe Loss
Muscle Mass Non Severe: Mild Loss
Severe: Severe Loss
Fluid Accumulation Non Severe: Mild Accumulation
Severe: Moderate to severe
accumulation
Reduced Home Health Assistant Strength Non Severe: N/A
Severe: Measurably reduced
Use of terms such as suspected, likely, concern for, or probable (associated with a specific diagnosis that is being evaluated, monitored, or treated as if it exists) are acceptable and can be coded in the inpatient setting, when documented at the
time of discharge.
Thank you,
Valerie LÓPEZN,RN,CCDS
CDI Specialist
Available via [place] text
Please use your independent medical judgment in providing your response.
[2024-02-03] MEDS: PROTONIX 40 MG PO (09:18)
[2024-02-03] MEDS: KEPPRA PO ×2 (09:18→09:22)
[2024-02-03] MEDS: ENTEREG 12 MG PO (09:18)
--- NOTE | 2024-02-03 10:20 | CM ---
Patient for probable discharge today. Sergio updated please fax discharge summary and transition of care to [phone]. will continue to follow for discharge planning needs.
Plan; home with Sergio to follow.
--- NOTE | 2024-02-03 10:49 | W.PN.CRS1 ---
Today's Communication / Plan
-
okay for dc from our perspective
roxie drain removed
Assessment/Plan
-
47-year-old female with hypothyroid, anxiety/depression and recurrent diverticulitis with abscess s/p drainage procedures, who presented for elective surgery
POD 5 robotic sigmoidectomy with splenic flexure takedown, concern for colovesical fistula although none identified intraoperatively
-POD 1 code stroke called for facial droop and unilateral weakness, symptoms resolved and CTH negative; per neuro- likely benzo withdrawal
AFVSS
WBC 9.0 (9.6), Hb 10.8 (11.3), Cr 0.6
�Neurologic symptoms resolved; per neuro- likely benzo withdrawal, on keppra for Sz ppx
� Continue low residue diet with ensure
� Continue pain control with Tylenol, Toradol, Dilaudid as needed
� Cont DVT PPx with Lovenox
� Continue home medications
� OOB/IS
� Appreciate hospitalist consult
- ROXIE drain removed at bedside
- Okay for d/c from our perspective, all discharge instructions discussed with patient. Follow up with Dr. Stephens in 2 weeks.
Subjective Data
Subjective Data
Date of Service: February 03, 2024
Patient states she feels well. She has no complaints. Her pain is controlled. She has no nausea or vomiting.
Objective Data
-
Vital Signs
Temp Pulse Resp BP Pulse Ox
97.7 F 61 16 151/93 98
02/03/24 07:50 02/03/24 07:50 02/03/24 07:50 02/03/24 07:50 02/03/24 07:50
Intake & Output
02/02/24 02/03/24 02/04/24
06:59 06:59 06:59
Intake Total 1660 / 1660 480 / 480
Output Total 220 / 220 100 / 100
Balance 1440 / 1440 380 / 380
Intake:
Oral fluids 360 / 360 480 / 480
IV fluids (Total) 1200 / 1200
IV piggybacks 100 /
Output:
Drain Output (Total) 100 /
Right Lower Abdomen Cody- /
Ybarra
Other:
Number of approximated MODERATE 2 3
amounts of urine
Number of approximated LARGE 2
amounts of urine
Lab Results
02/03/24 04:55
02/03/24 04:55
Physical Exam
-
General: No Acute Distress and AOx3
Abdomen: Soft, Non Distended, Non Tender and Other (ROXIE drain serous)
Skin: Warm and Dry
[2024-02-03 14:13] VITALS: BP 144/96
--- NOTE | 2024-02-03 19:12 | W.DCSUMMARY ---
Addendum entered and electronically signed by Mely Hathaway MD 02/03/24 19:53:
Read, reviewed, and agree. See same day progress note for additional details. Time spent coordinating care, DC planning, review of DC plan of care with resident, transition of care, review of records in EMR, med rec, consults, notes, d/w
consultants, nursing, family, and CM = 30 minutes
Original Note:
Discharge Summary
Discharge Data
Date of Admission: 01/29/24
Date of Discharge: 02/03/24
Total time spent discharging patient (in min): 30 minutes
-
Pending Results: No
Hospital Course
Discharging Physician : Mely Hathaway MD ; Wilner Chaney MD
Disposition : Home with home care
Primary care physician : Myles Moreira MD
Principal Discharge diagnosis :
Severe sigmoid diverticulitis
COPD
Hypothyroidism
Change in mental status
Hospital Course : 48-year-old female with PMH of hypothyroidism, anxiety/depression, severe recurrent sigmoid diverticulitis with suspected colovesicular fistula who presented to ED on 01/28 for robotic sigmoidectomy for severe diverticulitis.
While in the hospital she developed acute right facial droop with right upper extremity weakness which resolved without intervention. She was seen by neurology, and an EEG done was unremarkable for seizure, and neurology thinks that her atypical
seizure was due to possible benzodiazepine withdrawal. Patient reported that she have taking 1 mg Xanax 3 times daily for years, however there was scant record of Xanax prescription on PDMP. Patient reports that she gets Xanax from her 'friend'
and was very fixated on getting Xanax while on admission. She was started on Keppra with a loading dose of 2 g IV and continued on 1 g IV every 12 hours.
While in the hospital, patient was seen in consultation with colorectal surgery, urology and neurology. Her ureteral stent was pulled POD #1 and Bains was removed POD #2. Patient had a total of 5 days stay in the hospital, and DONY drain was removed
on POD #5.
Condition on discharge: Awake, alert and oriented x3, answer question properly, able to make own decision and take care of activities of daily living, speech clear and comprehensive, continent of the bowel and bladder, ambulate without assistant professor of english,
goes home where lives with the family independently. Patient has been evaluated and is medically stable for discharge. She has been advised to follow-up with her primary care physician in less than 1 week, adopt adequate caloric intake, walk on
smoking cessation, take her Synthroid as prescribed and recheck her TSH in about 6 weeks.
Important imaging findings :
Abdominal x-ray 01/31/2024:
Bowel: There is diffuse distention of the small bowel with gaseous distention of the proximal colon, favoring postoperative ileus.
Surgical drain projects over the anterior abdomen with tip projecting over the superior right hemipelvis.
Osseous structures: No abnormal calcifications or osseous abnormalities.
Impression: Diffuse gaseous distention of the small bowel and proximal colon, favoring postoperative ileus.
Head CT 01/29/2024:
There is no CT evidence for acute intracranial hemorrhage or extra-axial collection. The ventricles are midline without evidence for hydrocephalus. There is no abnormal cerebral or cerebellar volume loss. There is no midline shift or herniation.
The [id number] matter differentiation appears normal. There is no CT evidence for acute, subacute, or chronic transcortical infarct. There is no calcific atherosclerotic plaque in the intracranial arteries.
Discharge Plan
-
Patient Disposition: Home with Home Care
Discharge Diagnosis/Procedures: Severe sigmoid diverticulitis
COPD
Hypothyroidism
Change in mental status
Condition: Good
Diet: Low Residue
Activity: As tolerated
Additional Activity: No heavy lifting for at least 3 weeks
Driving Restrictions: As prior to admission
Bathing Restrictions: None
Wound Care: Cover your DONY drain site with gauze and tape daily until it seals. Wound will usually seal in 5 to 7 days. There may be some drainage from the wound (normal).
Referrals:
Jayro Stephens MD [Active] - in two weeks
Myles Moreira MD [Family Provider] - in less than 1 week
Additional Discharge Medication Instructions: Tylenol or Ibuprofen as needed for pain. Maximum dose of Tylenol is 4,000mg in 24 hours. Maximum dose of Ibuprofen is 3,200 mg in 24 hours.
Prescriptions:
New
nicotine 21 mg/24 hr Patch 24 Hour
21 mg transdermal DAILY Qty: 7 0RF
levetiracetam 500 mg/5 mL (5 mL) Solution
1,000 mg PO BID Qty: 200 0RF
pantoprazole 40 mg Tablet,Delayed Release (Dr/Ec)
40 mg PO DAILY Qty: 30 0RF
Continued
levothyroxine 175 mcg tablet
175 mcg PO DAILY
polyethylene glycol 3350 [Miralax] 17 gram Powder In Packet
17 g PO DAILY
Sutab 1.479-0.188- 0.225 gram Tablet
0 tab PO PER PKG DIR
alprazolam [Xanax] 1 mg tablet
1 mg PO TID Qty: 0 0RF
Visbiome 112.5 billion cell capsule
1 cap PO DAILY Qty: 20 0RF
Discontinued
amoxicillin-pot clavulanate 875-125 mg tablet
1 tab PO Q12H 14 Days Qty: 28 0RF
metronidazole 500 mg Tablet
500 mg PO BID
neomycin 500 mg Tablet
1 g PO DIRECTED
Discharge Orders:
Discharge Patient (As Directed); Ordered 02/03/24
Ordered By: Wilner Chaney
Discharge Date and Time
Discharge Date/Time: 02/03/24 14:58
Print Language: MONGOLIAN
== END 2024-02-03 14:58 | disposition home health service (06) | DRG 329 ==
LOC: 2 SOUTH 06:11
PROVIDERS: Physician Assistant; Registered Nurse; Student in an Organized Health Care Education/Training Program; ADMITTING PHYSICIAN Surgery; ATTENDING PHYSICIAN Internal Medicine; CONSULT PHYSICIAN Internal Medicine; CONSULT PHYSICIAN Psychiatry & Neurology Neurology; FAMILY PHYSICIAN Family Medicine; OTHER PHYSICIAN Psychiatry & Neurology Psychiatry
PROC: 0DTN4ZZ Resection of Sigmoid Colon, Percutaneous Endoscopic Approach (ICD-10-PCS; 2024-01-30)
PROC: 8E0W4CZ Robotic Assisted Procedure of Trunk Region, Percutaneous Endoscopic Approach (ICD-10-PCS; 2024-01-30)
PROC: 0DNN4ZZ Release Sigmoid Colon, Percutaneous Endoscopic Approach (ICD-10-PCS; 2024-01-30)
PROC: 0DJD8ZZ Inspection of Lower Intestinal Tract, Via Natural or Artificial Opening Endoscopic (ICD-10-PCS; 2024-01-30)
DX: K57.32 Diverticulitis of large intestine without perforation or abscess without bleeding (principal); E43 Unspecified severe protein-calorie malnutrition; F13.139 Sedative, hypnotic or anxiolytic abuse with withdrawal, unspecified; N32.1 Vesicointestinal fistula; K91.89 Other postprocedural complications and disorders of digestive system; K56.7 Ileus, unspecified; Q62.5 Duplication of ureter; E03.9 Hypothyroidism, unspecified; J44.9 Chronic obstructive pulmonary disease, unspecified; F41.9 Anxiety disorder, unspecified; R29.810 Facial weakness; G83.21 Monoplegia of upper limb affecting right dominant side; F17.210 Nicotine dependence, cigarettes, uncomplicated; F32.A Depression, unspecified; K66.0 Peritoneal adhesions (postprocedural) (postinfection); E66.09 Other obesity due to excess calories; Z68.32 Body mass index [BMI] 32.0-32.9, adult; Z79.890 Hormone replacement therapy; Z79.899 Other long term (current) drug therapy; Y83.8 Other surgical procedures as the cause of abnormal reaction of the patient, or of later complication, without mention of misadventure at the time of the procedure
CPT/HCPCS: 88307; 36415; 70450; 74018; 80048; 80053; 82607; 82728; 82746; 82962; 83036; 83735; 84439; 84443; 85025; 85027; 85610; 85652; 85730; 86850; 86900; 86901; 93005; 95813; A4300; C1729; J1335

== ENCOUNTER → 2024-08-25 15:05 | Outpatient (REF) | payer OTHER, SELFPAY | LOC: DHSLP 15:05 | PROVIDERS: ATTENDING PHYSICIAN Internal Medicine Critical Care Medicine; FAMILY PHYSICIAN Family Medicine | DX: G47.30 Sleep apnea, unspecified (principal); R06.83 Snoring | CPT/HCPCS: 95810 ==

== ENCOUNTER → 2025-02-25 12:55 | Outpatient (REF) | payer OTHER, SELFPAY | LOC: HWRAD 12:55 | PROVIDERS: ATTENDING PHYSICIAN Student in an Organized Health Care Education/Training Program | DX: R22.1 Localized swelling, mass and lump, neck (principal); R53.83 Other fatigue; F17.200 Nicotine dependence, unspecified, uncomplicated; F17.210 Nicotine dependence, cigarettes, uncomplicated | CPT/HCPCS: 71271; 76536 ==